=== PATIENT | male | born 1945 | race Caucasian/White ===

== ENCOUNTER 2017-05-04 12:34 | Emergency (ER) | payer BC, OTHER ==
[~2017-05-04] VITALS: Ht 177.8 cm; Wt 71.4 kg
[~2017-05-04 12:34] MED LIST: FLVUNK; PRDUNK
[2017-05-04 12:40] VITALS: TEMP 36.7; Ht 177.8 cm; Wt 71.4 kg
[2017-05-04] MEDS ORDERED: LORAZEPAM 0.5 MG TAB SL STA (13:10)
[2017-05-04] MEDS ORDERED: SODIUM CHLORIDE 0.9% 1000ML 2,000 ML IV STA (13:10)
[2017-05-04 13:32] LABS: BASO % 0.4 %; BASO ABS # 0.05 K/uL (0-0.2); COMPLETE YES; EOS % 0.2 %; HEMATOCRIT 44.7 % (42-52); IG% 0.3 %; LYMPH % 4.8 %; LYMPH ABS # 0.54 K/uL (1.2-3.4); MEAN CELL VOLUME 90.5 fL (80-100); MEAN CORPUSCULAR HEMOGLOBIN 31.4 pg (25-34); MEAN CORPUSCULAR HGB CONC 34.7 g/dl (32-36); MEAN PLATELET VOLUME 11.4 fL (7.4-10.4); MONO % 4.9 %; NEUT % 89.4 %; PLATELET COUNT 143 K/uL (130-400); RED BLOOD COUNT 4.94 M/uL (4.7-6.1); WHITE BLOOD COUNT 11.33 K/uL (4.8-10.8)
[2017-05-04] MEDS ORDERED: METH2.5T PO (13:35)
[2017-05-04] MEDS ORDERED: LEFL10TA PO (13:35)
[2017-05-04] MEDS ORDERED: FOLI1TAB7 PO (13:35)
[2017-05-04] MEDS ORDERED: SERT50TA PO (13:35)
[2017-05-04] MEDS ORDERED: ASPI-435 PO (13:35)
[2017-05-04] MEDS ORDERED: PRD5 PO (13:35)
[2017-05-04] MEDS ORDERED: DSY/150 PO (13:35)
[2017-05-04 13:49] LABS: BUN/CREATININE RATIO 23.1 (10-20); CREATININE 0.85 mg/dl (0.60-1.40); POTASSIUM 3.6 mmol/L (3.5-5.1)
[2017-05-04 14:44] LABS: URINE APPEARANCE CLEAR (CLEAR); URINE BILIRUBIN NEG (NEG); URINE COLOR YELLOW; URINE NITRITE NEG (NEG); URINE SPECIFIC GRAVITY 1.016 (1.000-1.030); UROBILINOGEN NEG (NEG); ZZUR CULT IF INDIC CLEAN CATCH NO
[2017-05-04 14:52] LABS: MANUAL MICROSCOPIC REQUIRED? NO; REVIEW REQ? NO
[2017-05-04] MEDS ORDERED: OPTIRAY 320 IV PRN (15:00)
--- NOTE | 2017-05-04 15:20 | DIAGNOSTIC IMAGING REPORT ---
CT OF THE ABDOMEN AND PELVIS WITH CONTRAST CLINICAL HISTORY: Hematuria. Epigastric abdominal pain. COMPARISON STUDY: None. TECHNIQUE: Following IV administration of 94 mL of Optiray-320, axial images of the abdomen and pelvis were obtained from the lung bases to the proximal femurs. Images were reviewed in the axial, sagittal, and coronal planes. IV contrast was administered without complication. A dose lowering technique was utilized adhering to the principles of ALARA. CT DOSE: 554.55 mGycm FINDINGS: Visualized portions of the lower chest partially visualize a 7 mm right middle lobe nodule. This may be cavitary. This is shown on axial image 1 of 91. The heart is mildly enlarged. The liver, spleen, adrenal glands are unremarkable. There is no biliary or pancreatic ductal dilatation. There is an apparent 1.3 cm nodule arising from the pancreatic tail with central calcification shown on image 108 of 451. There is no hydronephrosis. Several subcentimeter bilateral renal lesions are too small to characterize. Several left renal calculi measure up to 5 mm. There are no ureteral calculi. There is no hydronephrosis. Evaluation for distal ureteral calculi is significantly compromised due to streak artifact from bilateral hip arthroplasties. The bladder is suboptimally assessed. The prostate is surgically absent. This extensive sigmoid diverticulosis without evidence for acute diverticulitis. There is no lymphadenopathy. No suspicious osseous lesions are present. The appendix is not visualized. IMPRESSION: 1. Left-sided nephrolithiasis. No ureteral calculi or hydronephrosis. 2. Evaluation of the distal ureters and bladder is nearly nondiagnostic due to artifact from bilateral hip arthroplasties. 3. Extensive sigmoid diverticulosis without evidence for acute diverticulitis. 4. Partially visualized 7 mm right middle lobe nodule. A follow-up nonemergent chest CT is recommended. Electronically signed by: Mike Byrd M.D. 05/04/2017 3:19 PM Dictated Date/Time: 05/04/2017 3:07 PM
[2017-05-04] MEDS ORDERED: LORA-741 PO (15:37)
[2017-05-04 15:49] VITALS: BP 159/87; PULSE 83; O2SAT 96
--- NOTE | 2017-05-04 16:19 | EMERGENCY ROOM VISIT NOTE ---
History Report prepared by Giovanny: Bessie Fam Under the Supervision of: Dr. Singh Swenson D.O. First contact with patient: 12:44 Chief Complaint: HEMATURIA Stated Complaint: RED URINE History of Present Illness The patient is a 71 year old male who presents to the Emergency Room with complaints of persistent hematuria that started last night. The patient states that his urine is blood tinged. He denies headaches, visual changes, chest pain , shortness of breath, nausea, vomiting, diarrhea, and pain or burning with urination. The patient states that he has been extremely stressed out for the last month. The patient's son adds that the patient's sister 2 weeks ago and that seemed to increase his stress. 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 He denies suicidal or homicidal ideations. The patient's son states that the patient has not eaten much over the last 3-4 days. The patient states that he experiences some abdominal "stress pain." He denies being in any other pain. The patient's took him to see his PCP this morning and they prescribed him Zoloft. He has not taken any of the Zoloft yet because he hasn't eaten. The patient did not tell them about the hematuria. Source of History: patient Onset: last night Position: other (bladder) Quality: other (hematuria) Timing: other (persistent) Associated Symptoms: + abdominal pain ("stress pain"), No headache, No chest pain, No SOB, No nausea, No vomiting, No diarrhea, No urinary symptoms ( pain or burning with urination) Note: increased stress, no visual changes Review of Systems See HPI for pertinent positives & negatives. A total of 10 systems reviewed and were otherwise negative. Past Medical & Surgical Medical Problems: (1) Arthritis Family History No pertinent family history Social History Smoking Status: Former Smoker Marital Status: Housing Status: lives with family Occupation Status: employed Current/Historical Medications Scheduled Aspirin (Aspirin 81), 81 MG PO DAILY Folic Acid (Folvite), 1 MG PO DAILY Leflunomide (Arava), 10 MG PO DAILY Lorazepam (Ativan), 0.5 MG PO TID Methotrexate (Methotrexate), 20 MG PO WK Prednisone (Prednisone), 5 MG PO DAILY Sertraline (Zoloft), 50 MG PO DAILY Trazodone HCl (Trazodone HCl), 150 MG PO HS Allergies Coded Allergies: No Known Allergies (Unverified , NONE, 02/11/09) Physical Exam Vital Signs Date Time Temp Pulse Resp B/P (MAP) Pulse Ox O2 Delivery O2 Flow Rate FiO2 05/04/17 15:49 83 18 159/87 96 Room Air 05/04/17 14:30 77 15 154/86 97 Room Air 05/04/17 12:40 36.7 108 18 143/92 98 Room Air Physical Exam GENERAL: alert, sitting up in chair, well appearing, well nourished, no acute distress, non-toxic EYE EXAM: normal conjunctiva OROPHARYNX: no exudate, no erythema, lips, buccal mucosa, and tongue normal and mucous membranes are moist NECK: supple, no nuchal rigidity, no adenopathy, non-tender LUNGS: Clear to auscultation. Normal chest wall mechanics HEART: no murmurs, S1 normal and S2 normal ABDOMEN: abdomen soft, non-tender, normo-active bowel sounds, no masses, no rebound or guarding. BACK: Back is symmetrical on inspection and there is no deformity, no midline tenderness, no CVA tenderness. SKIN: no rashes and no bruising UPPER EXTREMITIES: upper extremities are grossly normal. LOWER EXTREMITIES: No pitting edema. NEURO EXAM: Normal sensorium, cranial nerves II-XII grossly intact, normal speech, no gross weakness of arms, no gross weakness of legs. PSYCH: Denies suicidal or homicidal ideations. Medical Decision & Procedures ER Provider Diagnostic Interpretation: Radiology results as stated below per my review and the radiologist's interpretation: CT OF THE ABDOMEN AND PELVIS WITH CONTRAST FINDINGS: Visualized portions of the lower chest partially visualize a 7 mm right middle lobe nodule. This may be cavitary. This is shown on axial image 1 of 91. The heart is mildly enlarged. The liver, spleen, adrenal glands are unremarkable. There is no biliary or pancreatic ductal dilatation. There is an apparent 1.3 cm nodule arising from the pancreatic tail with central calcification shown on image 108 of 451. There is no hydronephrosis. Several subcentimeter bilateral renal lesions are too small to characterize. Several left renal calculi measure up to 5 mm. There are no ureteral calculi. There is no hydronephrosis. Evaluation for distal ureteral calculi is significantly compromised due to streak artifact from bilateral hip arthroplasties. The bladder is suboptimally assessed. The prostate is surgically absent. This extensive sigmoid diverticulosis without evidence for acute diverticulitis. There is no lymphadenopathy. No suspicious osseous lesions are present. The appendix is not visualized. IMPRESSION: 1. Left-sided nephrolithiasis. No ureteral calculi or hydronephrosis. 2. Evaluation of the distal ureters and bladder is nearly nondiagnostic due to artifact from bilateral hip arthroplasties. 3. Extensive sigmoid diverticulosis without evidence for acute diverticulitis. 4. Partially visualized 7 mm right middle lobe nodule. A follow-up nonemergent chest CT is recommended. Electronically signed by: Mike Byrd M.D. 05/04/2017 3:19 PM Dictated Date/Time: 05/04/2017 3:07 PM Laboratory Results 05/04/17 13:20 Red Blood Count 4.94, Mean Corpuscular Volume 90.5, Mean Corpuscular Hemoglobin 31.4, Mean Corpuscular Hemoglobin Concent 34.7, Mean Platelet Volume 11.4, Neutrophils (%) (Auto) 89.4, Lymphocytes (%) (Auto) 4.8, Monocytes (%) (Auto) 4.9, Eosinophils (%) (Auto) 0.2, Basophils (%) (Auto) 0.4, Neutrophils # (Auto) 10.13, Lymphocytes # (Auto) 0.54, Monocytes # (Auto) 0.56, Eosinophils # (Auto) 0.02, Basophils # (Auto) 0.05 05/04/17 13:20 Test 05/04/17 13:20 05/04/17 14:15 White Blood Count 11.33 K/uL (4.8-10.8) Red Blood Count 4.94 M/uL (4.7-6.1) Hemoglobin 15.5 g/dL (14.0-18.0) Hematocrit 44.7 % (42-52) Mean Corpuscular Volume 90.5 fL (80-100) Mean Corpuscular Hemoglobin 31.4 pg (25-34) Mean Corpuscular Hemoglobin Concent 34.7 g/dl (32-36) Platelet Count 143 K/uL (130-400) Mean Platelet Volume 11.4 fL (7.4-10.4) Neutrophils (%) (Auto) 89.4 % Lymphocytes (%) (Auto) 4.8 % Monocytes (%) (Auto) 4.9 % Eosinophils (%) (Auto) 0.2 % Basophils (%) (Auto) 0.4 % Neutrophils # (Auto) 10.13 K/uL (1.4-6.5) Lymphocytes # (Auto) 0.54 K/uL (1.2-3.4) Monocytes # (Auto) 0.56 K/uL (0.11-0.59) Eosinophils # (Auto) 0.02 K/uL (0-0.5) Basophils # (Auto) 0.05 K/uL (0-0.2) RDW Standard Deviation 46.4 fL (36.4-46.3) RDW Coefficient of Variation 14.2 % (11.5-14.5) Immature Granulocyte % (Auto) 0.3 % Immature Granulocyte # (Auto) 0.03 K/uL (0.00-0.02) Anion Gap 8.0 mmol/L (3-11) Est Creatinine Clear Calc Drug Dose 78.2 ml/min Estimated GFR () 100.2 Estimated GFR (Non- 86.4 BUN/Creatinine Ratio 23.1 (10-20) Calcium Level 9.0 mg/dl (8.5-10.1) Total Bilirubin 1.3 mg/dl (0.2-1) Direct Bilirubin 0.3 mg/dl (0-0.2) Aspartate Amino Transf (AST/SGOT) 30 U/L (15-37) Alanine Aminotransferase (ALT/SGPT) 43 U/L (12-78) Alkaline Phosphatase 59 U/L (45-117) Total Protein 6.6 gm/dl (6.4-8.2) Albumin 3.4 gm/dl (3.4-5.0) Lipase 228 U/L (73-393) Urine Color YELLOW Urine Appearance CLEAR (CLEAR) Urine pH 8.0 (4.5-7.5) Urine Specific [place] 1.016 (1.000-1.030) Urine Protein NEG (NEG) Urine Glucose (UA) NEG (NEG) Urine Ketones NEG (NEG) Urine Occult Blood 3+ (NEG) Urine Nitrite NEG (NEG) Urine Bilirubin NEG (NEG) Urine Urobilinogen NEG (NEG) Urine Leukocyte Esterase NEG (NEG) Urine WBC (Auto) 1-5 /hpf (0-5) Urine RBC (Auto) >30 /hpf (0-4) Urine Hyaline Casts (Auto) 1-5 /lpf (0-5) Urine Epithelial Cells (Auto) 10-20 /lpf (0-5) Urine Bacteria (Auto) NEG (NEG) Laboratory results per my review. Medications Administered Medications (Trade) Dose Ordered Sig/Bryce Route Start Time Stop Time Status Last Admin Dose Admin Sodium Chloride 2,000 ml @ 999 mls/hr Q2H1M STAT IV 05/04/17 13:10 05/04/17 15:10 DC 05/04/17 13:22 999 MLS/HR Lorazepam (Ativan Tab) 0.5 mg NOW STAT SL 05/04/17 13:10 05/04/17 13:11 DC 05/04/17 13:16 0.5 MG ED Course ED COURSE: Vital signs were reviewed and showed tachycardia and hypertension. The patients medical record was reviewed The above diagnostic studies were performed and reviewed. ED treatments and interventions as stated above. 1247: The patient was evaluated in room C11. A complete history and physical examination was performed. 1310: Ordered Ativan Tab 0.5 mg SL, Sodium Chloride 2000 ml @ 999 mls/hr IV 1431: I reassessed the patient. He is going to CT now. 1540: Upon reevaluation, the patient is feeling better. I discussed my findings with the patient and his son. They understand and agree with the treatment plan. Based on the patients age, coexisting illnesses, exam and lab findings the decision to treat as an outpatient was made. The patient remained stable while under my care. The patient appeared well at the time of discharge. Medical Decision Differential diagnoses includes but is not limited to mood disorder, infection, hypoglycemia, electrolyte abnormalities, cardiac sources, intracerebral event, toxicologic, neurologic. Patient is a 71-year-old male who presents the ER for anxiety associated with body drinking and blood in his urine. He notes the real reason he came in today his cousin blood in his urine. He just noticed this today. He has no urinary complaints. He saw his PCP earlier today for anxiety which is been worsening over the past month since his daughter . He denies any suicidal or homicidal ideations. He just started Zoloft. He has no other complaints. CBC along with BMP, LFTs were unremarkable. Bilirubin was slightly elevated. CT then pelvis was negative. UA shows mild hematuria but no UTI. Sent for culture. He has no symptoms at this time. Unlikely stone. Patient was given a small dose of Ativan and notes his anxiety improved significant. He was discharged with a prescription for this instructed to follow-up with his PCP for his anxiety. I also informed him and his son in regards to the pulmonary nodule that needs to be followed up by his primary care doctor. Discussed with Pt concerning signs and symptoms to watch out for. Pt was instructed to follow up with their PCP and discussed with the patient their option to return to the ED at anytime for persistent or worsening symptoms. The appropriate anticipatory guidance and out-patient management, including indications for return to the emergency department, were explained at length to the patient and understood. Medication Reconcilliation Current Medication List: was personally reviewed by me Blood Pressure Screening Patient's blood pressure: Elevated blood pressure Blood pressure disposition: Elevated BP felt to be situational Impression Primary Impression: Anxiety Additional Impressions: Hematuria Depression Pulmonary nodule Scribe Attestation The scribe's documentation has been prepared under my direction and personally reviewed by me in its entirety. I confirm that the note above accurately reflects all work, treatment, procedures, and medical decision making performed by me. Departure Information Dispostion Home / Self-Care Prescriptions Lorazepam (ATIVAN) 0.5 Mg Tab 0.5 MG PO TID, #10 TAB Prov: Singh Swenson, DO 05/04/17 Referrals Jennifer Chavez,C.R.N.P. (PCP) Forms HOME CARE DOCUMENTATION FORM, IMPORTANT VISIT INFORMATION, WORK / SCHOOL INSTRUCTIONS Patient Instructions Anxiety Body Response, [facility] Additional Instructions Please follow up with your primary care doctor or if you are a student, [facility] with in the next 24 hours. Any worsening of your symptoms, please return to the ED immediately. This includes any fevers greater than 100.4, worsening pain, chest pain, shortness breath, persistent nausea, vomiting, unable to eat or drink, or any other concerning signs or symptoms from your standpoint. You were given medications during this visit that will inhibit your ability to drive, operate machinery and work. Please do NOT drive, operate machinery or work for the next 12hrs. You were also given a prescription for a benzodiazepine. While taking this medication you should also not drive, operate machinery and or work. You were found to have a blood pressure greater than 120 systolic over 90 diastolic. Due to the new Medicare guidelines, we are now recommending that you follow up with your primary care doctor in regards to this elevated blood pressure. You were found to have a pulmonary nodule which needs to be followed up on by your primary care doctor which needs to be followed up on within the next 2 weeks. Please follow up with urology in the next week. Problem Qualifiers Additional Impressions: Hematuria Hematuria type: unspecified type Qualified Codes: R31.9 - Hematuria, unspecified Depression Depression Type: unspecified Qualified Codes: F32.9 - Major depressive disorder, single episode, unspecified
== END 2017-05-04 15:53 | disposition home or self-care (01) ==
LOC: C.EDB 12:34 → C.EDC 15:53
DX: F41.9 Anxiety disorder, unspecified (principal); R31.9 Hematuria, unspecified; F32.9 Major depressive disorder, single episode, unspecified; R91.1 Solitary pulmonary nodule; M19.90 Unspecified osteoarthritis, unspecified site; Z87.891 Personal history of nicotine dependence; Z79.82 Long term (current) use of aspirin

== ENCOUNTER 2017-05-10 05:29 | Emergency (ER) | payer BC, OTHER ==
[~2017-05-10] VITALS: Ht 177.8 cm; Wt 70.1 kg
[~2017-05-10 05:29] MED LIST changes: +ASPI-435 PO; +DSY/150 PO; -FLVUNK; +FOLI1TAB7 PO; +LEFL10TA PO; +LORA-741 PO; +METH2.5T PO; +PRD5 PO; -PRDUNK; +SERT50TA PO
[2017-05-10 05:34] VITALS: TEMP 36.5
[2017-05-10] MEDS ORDERED: SODIUM CHLORIDE 0.9% 1000ML 1,000 ML IV SCH (05:37)
[2017-05-10 05:41] VITALS: O2SAT 96; Ht 177.8 cm; Wt 70.1 kg
[2017-05-10 06:03] LABS: BASO % 0.5 %; BASO ABS # 0.04 K/uL (0-0.2); COMPLETE YES; EOS % 3.2 %; HEMATOCRIT 43.9 % (42-52); IG% 0.3 %; LYMPH % 14.7 %; LYMPH ABS # 1.07 K/uL (1.2-3.4); MEAN CELL VOLUME 90.1 fL (80-100); MEAN CORPUSCULAR HEMOGLOBIN 31.8 pg (25-34); MEAN CORPUSCULAR HGB CONC 35.3 g/dl (32-36); MEAN PLATELET VOLUME 11.7 fL (7.4-10.4); MONO % 8.1 %; NEUT % 73.2 %; PLATELET COUNT 162 K/uL (130-400); RED BLOOD COUNT 4.87 M/uL (4.7-6.1); WHITE BLOOD COUNT 7.28 K/uL (4.8-10.8)
[2017-05-10 06:16] LABS: PROTHROMBIN TIME (PATIENT) 10.6 SECONDS (9.0-12.0)
[2017-05-10 06:22] LABS: BLOOD UREA NITROGEN 16 mg/dl (7-18); BUN/CREATININE RATIO 18.9 (10-20); CALCIUM 9.1 mg/dl (8.5-10.1); CARBON DIOXIDE 26 mmol/L (21-32); CHLORIDE 109 mmol/L (98-107); CREATININE 0.82 mg/dl (0.60-1.40); GLUCOSE 119 mg/dl (70-99); POTASSIUM 3.3 mmol/L (3.5-5.1); SODIUM 143 mmol/L (136-145)
[2017-05-10 06:27] LABS: CKMB/CK RATIO 3.9 (0-3.0)
--- NOTE | 2017-05-10 06:47 | EMERGENCY ROOM VISIT NOTE ---
History Report prepared by Giovanny: Jacki Sandoval Under the Supervision of: Dr. Jacqueline Mendoza D.O. First contact with patient: 05:34 Chief Complaint: STROKE SYMPTOMS Stated Complaint: STROKE SYMPTOMS Nursing Triage Summary: Last know well at 2300. Pt fell out of bed at 0415. Pt has left facial droop and left arm weakness. History of Present Illness The patient is a 71 year old male who presents to the Emergency Room with complaints of an episode of stroke symptoms starting an hour and a half ago. The patient's states that he went to bed 6 hours ago and that this is his last known well time. She states that he got up to use the restroom and fell getting out of the bed. She states that he seems to have left sided weakness, a left sided facial droop, and slurred speech. The patient denies abdominal pain and a headache. The notes no family history of a stroke. Source of History: patient Onset: hour and a half ago Position: other (global) Quality: other (global) Timing: other (episode) Associated Symptoms: No headache, No abdominal pain Review of Systems See HPI for pertinent positives & negatives. A total of 10 systems reviewed and were otherwise negative. Past Medical & Surgical Medical Problems: (1) Arthritis Family History No pertinent family history Social History Smoking Status: Never Smoker Drug Use: none Marital Status: Housing Status: lives with family Occupation Status: employed Current/Historical Medications Scheduled Aspirin (Aspirin 81), 81 MG PO DAILY Folic Acid (Folvite), 1 MG PO DAILY Leflunomide (Arava), 10 MG PO DAILY Lorazepam (Ativan), 0.5 MG PO TID Methotrexate (Methotrexate), 20 MG PO WK Prednisone (Prednisone), 5 MG PO DAILY Sertraline (Zoloft), 50 MG PO DAILY Trazodone HCl (Trazodone HCl), 150 MG PO HS Allergies Coded Allergies: No Known Allergies (Unverified , NONE, 05/10/17) Physical Exam Vital Signs Date Time Temp Pulse Resp B/P (MAP) Pulse Ox O2 Delivery O2 Flow Rate FiO2 05/10/17 07:17 73 18 157/98 98 05/10/17 07:15 73 18 157/98 05/10/17 06:24 68 140/86 96 Room Air 05/10/17 05:41 96 Room Air 05/10/17 05:38 79 05/10/17 05:34 36.5 87 18 149/94 98 Room Air Physical Exam HEENT: Head - normocephalic. Abrasion to left forehead. Pupils are equal, round , and reactive to light. Extraocular eye muscles are intact and sclera are anicteric. \ Nose - moist nasal mucosa without discharge. Mouth - moist buccal mucosa. Oropharynx is nonerythematous and there is no tonsillar exudate or edema noted. Neck: Supple; no JVD, nuchal rigidity, cervical lymphadenopathy, or auscultated bruits. Heart: Regular rate and rhythm. There is a normal S1 and S2 with no murmurs, clicks, or gallops appreciated. Lungs: Clear to auscultation bilaterally with no wheezes, rales, or rhonchi. Abdomen: Soft, completely nontender, nondistended, with good bowel sounds. There are no palpable pulsatile masses or hepatosplenomegaly. There is no guarding, rigidity, or rebound noted. Extremities: No evidence of cyanosis, clubbing, or edema. There are easily palpable peripheral pulses. Neuro:The patient is awake and alert, oriented to day, time, and place. Left sided facial droop. Left arm is weak, can only abduct against gravity for a very short period of time, no ability to flex or extend at the elbow. Very minimal sanitation engineer at the left hand. Able to elevate left leg and hold against gravity for more then 5 seconds. Normal pedal push and pull. Medical Decision & Procedures ER Provider Diagnostic Interpretation: CT HEAD: No prior. Hemorrhage in right basal ganglia with surrounding edema. Given its location, consider hypertensive hemorrhage. Chronic- appearing ischemic change. Mild sinus opacity. Suspect trace mastoid opacity. Radiologist: Jovany Foy M.D. Study ready at 05:57 and initial results transmitted at 06:41. Laboratory Results 05/10/17 04:55 Red Blood Count 4.87, Mean Corpuscular Volume 90.1, Mean Corpuscular Hemoglobin 31.8, Mean Corpuscular Hemoglobin Concent 35.3, Mean Platelet Volume 11.7, Neutrophils (%) (Auto) 73.2, Lymphocytes (%) (Auto) 14.7, Monocytes (%) (Auto) 8.1, Eosinophils (%) (Auto) 3.2, Basophils (%) (Auto) 0.5, Neutrophils # (Auto) 5.33, Lymphocytes # (Auto) 1.07, Monocytes # (Auto) 0.59, Eosinophils # (Auto) 0.23, Basophils # (Auto) 0.04 05/10/17 04:55 Test 05/10/17 04:55 05/10/17 05:41 05/10/17 06:10 White Blood Count 7.28 K/uL (4.8-10.8) Red Blood Count 4.87 M/uL (4.7-6.1) Hemoglobin 15.5 g/dL (14.0-18.0) Hematocrit 43.9 % (42-52) Mean Corpuscular Volume 90.1 fL (80-100) Mean Corpuscular Hemoglobin 31.8 pg (25-34) Mean Corpuscular Hemoglobin Concent 35.3 g/dl (32-36) Platelet Count 162 K/uL (130-400) Mean Platelet Volume 11.7 fL (7.4-10.4) Neutrophils (%) (Auto) 73.2 % Lymphocytes (%) (Auto) 14.7 % Monocytes (%) (Auto) 8.1 % Eosinophils (%) (Auto) 3.2 % Basophils (%) (Auto) 0.5 % Neutrophils # (Auto) 5.33 K/uL (1.4-6.5) Lymphocytes # (Auto) 1.07 K/uL (1.2-3.4) Monocytes # (Auto) 0.59 K/uL (0.11-0.59) Eosinophils # (Auto) 0.23 K/uL (0-0.5) Basophils # (Auto) 0.04 K/uL (0-0.2) RDW Standard Deviation 47.2 fL (36.4-46.3) RDW Coefficient of Variation 14.3 % (11.5-14.5) Immature Granulocyte % (Auto) 0.3 % Immature Granulocyte # (Auto) 0.02 K/uL (0.00-0.02) Prothrombin Time 10.6 SECONDS (9.0-12.0) Prothromb Time International Ratio 1.0 (0.9-1.1) Activated Partial Thromboplast Time 24.7 SECONDS (21.0-31.0) Partial Thromboplastin Ratio 1.0 Anion Gap 8.0 mmol/L (3-11) Est Creatinine Clear Calc Drug Dose 79.6 ml/min Estimated GFR () 101.7 Estimated GFR (Non- 87.7 BUN/Creatinine Ratio 18.9 (10-20) Calcium Level 9.1 mg/dl (8.5-10.1) Total Creatine Kinase 64 U/L (39-308) Creatine Kinase MB 2.5 ng/ml (0.5-3.6) Creatine Kinase MB Ratio 3.9 (0-3.0) Troponin I < 0.015 ng/ml (0-0.045) Bedside Glucose 124 mg/dl (70-99) Bedside Prothrombin Time INR 1.1 (0.9-1.1) Laboratory results per my review. Medications Administered Medications (Trade) Dose Ordered Sig/Bryce Route Start Time Stop Time Status Last Admin Dose Admin Sodium Chloride 1,000 ml @ 50 mls/hr Q20H IV 05/10/17 05:37 05/10/17 08:21 DC 05/10/17 06:00 50 MLS/HR Procedure 0537: Ordered NSS 1000 ml @ 50 mls/hr IV. ECG Indication: weakness Rate (beats per minute): 79 Rhythm: normal sinus Findings: ST depression (Lateral), no ectopy ED Course 0536: Past medical records reviewed. The patient was evaluated in room B10. A complete history and physical exam was performed. The patient went for a stat CT scan of the brain and a stroke protocol was performed. 0537: Ordered NSS 1000 ml @ 50 mls/hr IV. 0603: I discussed with his family the test result findings. They would like him to be transferred to [facility]. His INR is 1.1. The patient's blood pressure remained stable at this time. 0648: Discussed the patient's case with Dr. Olivier. The patient will be transferred by air and evaluated for further management. 0652: I spoke with the patient and his family to inform them that the transport will be done by air. 0710: I discussed the case with the flight crew at the bedside. Medical Decision This is a 71-year-old male patient who awoke from sleep with left-sided weakness and fell to the ground trying to go to the bathroom. Differential diagnoses include intracranial hemorrhage, TIA, CVA. LABS: White count 7.2 Stable H&H Normal troponin Glucose 119 Normal renal function INR 1.[address] scan, the patient had evidence of an acute intracranial hemorrhage in the right basal ganglia. The patient's family requested him to go to [facility] for nerve surgical evaluation. He was transferred there by air. He remained hemodynamically stable prior to transport. Medication Reconcilliation Current Medication List: was personally reviewed by me Blood Pressure Screening Patient's blood pressure: Normal blood pressure Blood pressure disposition: Did not require urgent referral Consults Time Called: [phone] Consulting Physician: Dr. Olivier Returned Call: [phone] Discussed the patient's case with Dr. Olivier. The patient will be transferred by air and evaluated for further management. Impression Primary Impression: Hemorrhagic stroke Critical Care I have personally spent greater than 60 minutes of critical care time in the direct management of this patient. This includes bedside care, interpretation of diagnostic studies, and testing, discussion with consultants, patient, and family members, and other required patient management activities. This 60 minutes is in excess of all separately billable procedures. Scribe Attestation The scribe's documentation has been prepared under my direction and personally reviewed by me in its entirety. I confirm that the note above accurately reflects all work, treatment, procedures, and medical decision making performed by me. Departure Information Dispostion Transfer Acute Care Facility Referrals Randy Cisneros D.O. (PCP) Patient Instructions [facility]
--- NOTE | 2017-05-10 07:11 | DIAGNOSTIC IMAGING REPORT ---
CT SCAN OF THE BRAIN WITHOUT IV CONTRAST CLINICAL HISTORY: Strokelike symptoms. Fall. Facial droop. COMPARISON STUDY: No priors. TECHNIQUE: Unenhanced axial CT scan of the brain is performed from the vertex to the skull base. CT DOSE: 614.27 mGy.cm FINDINGS: Brain parenchyma: There are age-related involutional changes noting moderate subcortical and periventricular microangiopathic change. There is an acute hemorrhage centered in the right basal ganglia. This measures approximately 4 x 2.5 cm and there is surrounding edema. There is no midline shift or evidence of acute territorial ischemia by CT criteria. No extra-axial fluid collection is seen. Ventricles, sulci, cisterns: Prominent secondary to involutional change. Intracranial vasculature: There is atherosclerotic calcification of the cavernous carotid arteries. Calvarium: The skeletal structures are osteopenic. No depressed calvarial fracture is seen. Sinuses and mastoids: Trace mucosal thickening is seen in the right maxillary antrum. The remaining paranasal sinuses are clear. There is a trace right mastoid effusion. The left mastoid air cells are well pneumatized. Orbits: The bony orbits are grossly intact. IMPRESSION: 1. There is an approximately 4 x 2.5 cm acute hemorrhage centered in the right basal ganglia with surrounding edema. 2. No additional foci of hemorrhage are identified. 3. There is no midline shift or evidence of acute territorial ischemia by CT criteria. Electronically signed by: Jake Moorcho M.D. 05/10/2017 7:10 AM Dictated Date/Time: 05/10/2017 7:07 AM
[2017-05-10 07:17] VITALS: BP 157/98; PULSE 73; O2SAT 98
== END 2017-05-10 07:19 | disposition short-term general hospital (02) ==
LOC: C.EDB 05:29
DX: I62.9 Nontraumatic intracranial hemorrhage, unspecified (principal); M19.90 Unspecified osteoarthritis, unspecified site; Z79.82 Long term (current) use of aspirin; Z79.899 Other long term (current) drug therapy

== ENCOUNTER 2017-06-07 19:03 | Emergency (ER) | payer BC, OTHER ==
[~2017-06-07] VITALS: Ht 182.9 cm; Wt 66.7 kg
[~2017-06-07 19:03] MED LIST changes: -LORA-741 PO
[2017-06-07 19:09] VITALS: TEMP 36.3; Ht 182.9 cm; Wt 66.7 kg
[2017-06-07 20:49] VITALS: O2SAT 98
[2017-06-07] MEDS ORDERED: LORAZEPAM 2 MG/ML 1 ML VIAL IV STA (21:12)
--- NOTE | 2017-06-07 21:49 | EMERGENCY ROOM VISIT NOTE ---
History Report prepared by Giovanny: Gibran Lance Under the Supervision of: Dr. Taco Rodgers D.O. First contact with patient: 20:57 Chief Complaint: FEEDING TUBE PROBLEM Stated Complaint: ANXIETY, FEED TUBE PROBLEMS History of Present Illness The patient is a 71 year old male who presents to the Emergency Room with complaints of a problem with his feeding tube that began this afternoon. He had this tube placed in his abdomen on May 17, 2017. The patient was unable to receive any food or medications since 2 pm today. They state that they cannot get any liquids through the tube. He missed his blood pressure and anxiety medications. Source of History: patient Onset: this afternoon Position: other (Feeding tube) Symptom Intensity: Clogged Quality: other (Unable to input liquids) Timing: constant Note: He was unable to receive his hypertension and anxiety medications, so he is anxiety and hypertensive. They deny any other abnormal symptoms. Review of Systems See HPI for pertinent positives & negatives. A total of 10 systems reviewed and were otherwise negative. Past Medical & Surgical Medical Problems: (1) Arthritis Family History No pertinent family history Social History Smoking Status: Former Smoker Drug Use: none Marital Status: Housing Status: lives with family Occupation Status: employed Current/Historical Medications Scheduled Aspirin (Aspirin 81), 81 MG PO DAILY Folic Acid (Folvite), 1 MG PO DAILY Leflunomide (Arava), 10 MG PO DAILY Methotrexate (Methotrexate), 20 MG PO WK Prednisone (Prednisone), 5 MG PO DAILY Sertraline (Zoloft), 50 MG PO DAILY Trazodone HCl (Trazodone HCl), 150 MG PO HS Allergies Coded Allergies: No Known Allergies (Unverified , NONE, 05/10/17) Physical Exam Vital Signs Date Time Temp Pulse Resp B/P (MAP) Pulse Ox O2 Delivery O2 Flow Rate FiO2 06/07/17 22:00 88 14 149/96 94 06/07/17 21:23 109 06/07/17 20:53 122 20 180/121 96 Room Air 06/07/17 20:49 98 Room Air 06/07/17 19:09 36.3 119 22 181/106 94 Room Air Physical Exam CONSTITUTIONAL/VITAL SIGNS: Reviewed / noted above. GENERAL: Non-toxic in appearance. INTEGUMENTARY: Warm, dry, and [place]. HEAD: Normocephalic. EYES: without scleral icterus or trauma. ENT/OROPHARYNX: clear and moist. LYMPHADENOPATHY/NECK: Is supple without lymphadenopathy or meningismus. RESPIRATORY: Lungs clear and equal. CARDIOVASCULAR: Regular rate and rhythm. GI/ABDOMEN: Soft and nontender. No organomegaly or pulsatile mass. No rebound or guarding. Normal bowel sounds. Feeding tube in place. EXTREMITIES: Warm and well perfused. BACK: No CVA tenderness. NEUROLOGICAL: Intact without focal deficits. PSYCHIATRIC: normal affect. MUSCULOSKELETAL: Normally developed with good muscle tone. Medical Decision & Procedures Medications Administered Medications (Trade) Dose Ordered Sig/Bryce Route Start Time Stop Time Status Last Admin Dose Admin Lorazepam (Ativan Inj) 1 mg NOW STAT IV 06/07/17 21:12 06/07/17 21:13 DC 06/07/17 21:18 1 MG ED Course 2056: Previous medical records were reviewed. The patient was evaluated in room B8. A complete history and physical examination was performed. 2111: Ordered Ativan Inj 1 mg IV 2149: On reevaluation, the patient is resting. I discussed the results and findings with the patient. He verbalized agreement of the treatment plan. He was discharged home. Medical Decision Differential diagnoses include feeding tube dysfunction and anxiety related to lack of anxiety medication. This is a 71-year-old male who presents to the ED with a chief complaint of feeding tube dysfunction. The patient's was attempting to give the patient medication this evening and was unable to administer the medication through the feeding tube because it was clogged. The patient's attempted Sheri Savanna without success and came in for evaluation. The patient is feeling anxious because he was unable to get his medication. An IV was established, the patient was given Ativan IV. I was able to flush the feeding tube. It seems to be functioning fine. The patient was felt to be stable for discharge. Medication Reconcilliation Current Medication List: was personally reviewed by me Blood Pressure Screening Patient's blood pressure: Elevated blood pressure Blood pressure disposition: Did not require urgent referral Impression Primary Impression: Feeding tube blocked Additional Impression: Anxiety Scribe Attestation The scribe's documentation has been prepared under my direction and personally reviewed by me in its entirety. I confirm that the note above accurately reflects all work, treatment, procedures, and medical decision making performed by me. Departure Information Dispostion Home / Self-Care Referrals Randy Cisneros D.O. (PCP) Forms HOME CARE DOCUMENTATION FORM, IMPORTANT VISIT INFORMATION, WORK / SCHOOL INSTRUCTIONS Patient Instructions [facility] Additional Instructions Follow-up with your doctor for further care and evaluation in 1-2 days as needed. Return to the emergency department for worsening or new symptoms or any concerns. You have been examined and treated today on an emergency basis only. This is not a substitute for, or an effort to provide, complete comprehensive medical care. It is impossible to recognize and treat all injuries or illnesses in a single emergency department visit. It is therefore important that you follow up closely with your doctor. Call as soon as possible for an appointment. Problem Qualifiers
[2017-06-07 22:00] VITALS: BP 149/96; PULSE 88; O2SAT 94
== END 2017-06-07 22:00 | disposition home or self-care (01) ==
LOC: C.EDB 19:04
DX: Z43.1 Encounter for attention to gastrostomy (principal); F41.9 Anxiety disorder, unspecified; M19.90 Unspecified osteoarthritis, unspecified site; Z87.891 Personal history of nicotine dependence; Z79.82 Long term (current) use of aspirin

== ENCOUNTER 2017-09-08 19:39 | Observation (INO) | payer BC, OTHER ==
[~2017-09-08] VITALS: Ht 177.8 cm; Wt 70.9 kg
[2017-09-08] MEDS ORDERED: OXYCODONE HCL IR 5 MG TAB (IMMEDIATE RELEASE) PO STA (20:04)
[2017-09-08] MEDS ORDERED: ONDANSETRON 4MG OD TAB PO ONE (20:15)
--- NOTE | 2017-09-08 20:40 | DIAGNOSTIC IMAGING REPORT ---
LEFT SHOULDER 3 VIEWS CLINICAL HISTORY: Fall with shoulder injury. FINDINGS: 3 views of the left shoulder are obtained. No prior studies are available for comparison at the time of dictation. The skeletal structures are osteopenic. No fracture is seen. The glenohumeral articulation is preserved. There is separation at the acromioclavicular joint, with superior subluxation of the clavicular head. Productive degenerative changes seen at the AC joint. Arthritic change is also seen in the greater tuberosity of the humeral head. Overlying soft tissue edema is noted. There are healed left-sided rib fractures. The imaged left lung parenchyma appears clear. IMPRESSION: 1. No left shoulder fracture is seen. 2. Findings are consistent with shoulder separation at the AC joint. Electronically signed by: Jake Morocho M.D. 09/08/2017 8:39 PM Dictated Date/Time: 09/08/2017 8:37 PM
--- NOTE | 2017-09-08 21:11 | DIAGNOSTIC IMAGING REPORT ---
CT SCAN OF THE BRAIN WITHOUT IV CONTRAST CLINICAL HISTORY: Fall. Head injury. COMPARISON STUDY: CT of the brain dated 05/10/2017. TECHNIQUE: Unenhanced axial CT scan of the brain is performed from the vertex to the skull base. FINDINGS: Brain parenchyma: There are age-related involutional changes noting moderate subcortical and periventricular microangiopathic change. There is linear hyperdensity present within the right subinsular cortex on axial image #16 at the site of a previously characterized hematoma. This likely represents trace resolving hemorrhage. No additional foci of hemorrhage is seen. There is no mass effect or evidence of acute territorial ischemia by CT criteria. Jean-white matter is preserved. No extra-axial fluid collection is seen. Ventricles, sulci, cisterns: Prominent secondary to involutional change. Intracranial vasculature: There is atherosclerotic calcification of the cavernous carotid and vertebral arteries. Calvarium: The skeletal structures are osteopenic. No depressed calvarial fracture is seen. Sinuses and mastoids: There is moderate mucosal thickening with calcified debris present in the right sphenoid sinus. The remaining visualized paranasal sinuses are clear. The mastoid air cells are well pneumatized. Orbits: The bony orbits are grossly intact. IMPRESSION: 1. There is linear hyperdensity present within the right subinsular cortex. There was a large hematoma seen at this site on 05/10/2017, and this likely represents trace resolving hematoma. Acute hemorrhage is considered much less likely but is impossible to exclude. Consider short-term follow-up for reassessment (12 to 24 hours). 2. No additional foci of hemorrhage is seen. There is no mass effect or evidence of acute territorial ischemia by CT criteria. Electronically signed by: Jake Morocho M.D. 09/08/2017 9:10 PM Dictated Date/Time: 09/08/2017 9:05 PM
--- NOTE | 2017-09-08 21:15 | DIAGNOSTIC IMAGING REPORT ---
CT SCAN OF THE CERVICAL SPINE CLINICAL HISTORY: Trauma. Fall. COMPARISON STUDY: No priors. TECHNIQUE: CT scan of the cervical spine is performed from the skull base to the upper thoracic spine. Images are reviewed in the axial, sagittal, and coronal planes. IV contrast was not administered for this examination. A dose lowering technique was utilized adhering to the principles of ALARA. CT DOSE: 1193.67 mGy.cm FINDINGS: Skeletal structures: The skeletal structures are osteopenic. There is no evidence of fracture or subluxation involving the cervical spine. Vertebral body height is maintained. There is minimal anterolisthesis at C3-C4 and C7-T1. Minimal retrolisthesis is noted at C5-C6. Anterior osteophytes are seen throughout. Hyperlordosis is noted. The odontoid process and lateral masses are intact. The atlantoaxial articulation is preserved noting advanced productive degenerative change. The spinous processes appear intact. There is moderate multilevel cervical spondylosis. Uncovertebral and facet arthropathy contribute to multilevel neural foraminal stenosis. Intervertebral discs: Moderate disc space narrowing is seen at all levels between C3-C4 and C7-T1. Central canal: Posterior disc osteophyte complexes at C3-C4, C4-C5, C5-C6, and C6-C7 may contribute to mild acquired compromise of the central canal. Soft tissues: The prevertebral and paraspinous soft tissues are within normal limits. Calvarium: The visualized calvarium at the skull base appears intact. Brain parenchyma: Partially visualized brain parenchyma the skull base is within normal limits. Sinuses and mastoids: The visualized paranasal sinuses are clear. The mastoid air cells are well pneumatized. Lung apices: Apical scarring is noted. Mild paraseptal emphysematous changes observed. IMPRESSION: 1. There is no evidence of fracture or subluxation involving the cervical spine. 2. Osteopenia and spondylotic change as above. Electronically signed by: Jake Morocho M.D. 09/08/2017 9:14 PM Dictated Date/Time: 09/08/2017 9:10 PM
[2017-09-08] MEDS ORDERED: VENL150C PO (21:53)
[2017-09-08] MEDS ORDERED: MIRT15TA2 PO (21:57)
[2017-09-08] MEDS ORDERED: LISI-787 PO (21:59)
[2017-09-08] MEDS ORDERED: HYDR-5688 PO (21:59)
[2017-09-08 22:07] LABS: BASO % 0.3 %; BASO ABS # 0.03 K/uL (0-0.2); COMPLETE YES; EOS % 0.7 %; HEMATOCRIT 39.1 % (42-52); IG% 0.4 %; LYMPH % 10.2 %; LYMPH ABS # 0.98 K/uL (1.2-3.4); MEAN CELL VOLUME 91.8 fL (80-100); MEAN CORPUSCULAR HEMOGLOBIN 30.5 pg (25-34); MEAN CORPUSCULAR HGB CONC 33.2 g/dl (32-36); MEAN PLATELET VOLUME 10.5 fL (7.4-10.4); NEUT % 81.4 %; PLATELET COUNT 135 K/uL (130-400); RED BLOOD COUNT 4.26 M/uL (4.7-6.1); WHITE BLOOD COUNT 9.62 K/uL (4.8-10.8)
[2017-09-08 22:18] LABS: PROTHROMBIN TIME (PATIENT) 10.6 SECONDS (9.0-12.0)
[2017-09-08 22:24] LABS: BLOOD UREA NITROGEN 18 mg/dl (7-18); BUN/CREATININE RATIO 28.6 (10-20); CALCIUM 8.9 mg/dl (8.5-10.1); CARBON DIOXIDE 28 mmol/L (21-32); CHLORIDE 105 mmol/L (98-107); CREATININE 0.64 mg/dl (0.60-1.40); GLUCOSE 81 mg/dl (70-99); POTASSIUM 3.7 mmol/L (3.5-5.1); SODIUM 139 mmol/L (136-145)
[2017-09-08] MEDS ORDERED: NITROGLYCERIN 0.4 MG SL PER TAB CHARGE SL PRN (23:00)
[2017-09-08] MEDS ORDERED: MoRPHine SULFATE 4 MG/ML 1 ML CARP\\VIAL IV PRN (23:00)
[2017-09-08] MEDS ORDERED: HYDROCODONE/ACETAMOPHEN 5/325MG TAB PO PRN (23:00)
[2017-09-08] MEDS ORDERED: ONDANSETRON INJ 2 MG/ML 2 ML VIAL IV PRN (23:00)
[2017-09-08] MEDS ORDERED: ACETAMINOPHEN 325 MG TAB PO PRN (23:00)
[2017-09-08 23:03] LABS: ALKALINE PHOSPHATASE 75 U/L (45-117); ALT/SGPT 26 U/L (12-78); AST/SGOT 34 U/L (15-37)
[2017-09-08] MEDS ORDERED: HYDROCODONE/ACETAMOPHEN 5/325MG TAB PO STA (23:05)
[2017-09-08 23:15] LABS: MAGNESIUM 2.2 mg/dl (1.8-2.4)
--- NOTE | 2017-09-08 23:15 | EMERGENCY ROOM VISIT NOTE ---
History First contact with patient: 20:02 Chief Complaint: SHOULDER PAIN Stated Complaint: BROKEN SHOULDER History of Present Illness The patient is a 71 year old male who presents to the Emergency Room with complaints of left shoulder pain after a fall. The patient states that he tripped and fell out of the bed of a truck approximately 4 hours ago. 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 He states that he landed onto the left shoulder and may have struck the head. He rates his discomfort an 8/10 in the shoulder. He denies headache, nausea/vomiting, dizziness, confusion, blurred vision or slurred speech. He does not take any anticoagulants. He denies any other injuries. He denies neck pain. The patient does report that he has a rash on his abdomen and back from a fall 2 weeks ago. He did not take any medication for pain prior to arrival here. Review of Systems A complete 10 point review of systems was reviewed with the patient with pertinent positives and negatives as per history of present illness. All else were negative. Past Medical/Surgical History Medical Problems: (1) Abnormal CT of brain (2) Arthritis (3) Head trauma Family History No pertinent family history Social History Smoking Status: Never Smoker Drug Use: none Marital Status: Housing Status: lives with family Occupation Status: employed Current/Historical Medications Scheduled Folic Acid (Folvite), 1 MG PO DAILY Leflunomide (Arava), 10 MG PO DAILY Lisinopril/Hctz (Zestoretic 20MG/12.5MG), 1 TAB PO DAILY Methotrexate (Methotrexate), 20 MG PO WK Mirtazapine Soltab (Remeron Soltab), 7.5 MG PO HS Prednisone (Prednisone), 5 MG PO DAILY Trazodone HCl (Trazodone HCl), 150 MG PO HS Venlafaxine Hcl (Effexor Xr), 1 CAP PO DAILY Scheduled PRN Hydrocodone/Acetaminophen 5MG/325MG (Wren 5MG/325MG), 1 TABLET PO Q6 PRN for Pain Physical Exam Vital Signs Date Time Temp Pulse Resp B/P (MAP) Pulse Ox O2 Delivery O2 Flow Rate FiO2 09/08/17 22:05 78 18 148/93 100 Room Air 09/08/17 19:53 36.6 79 18 100 Room Air Physical Exam VITALS: Vitals are noted on the nurse's note and reviewed by myself. Vital signs stable. GENERAL: This is a 71-year-old male, in no acute distress, nondiaphoretic, well- developed well-nourished. SKIN: There is an erythematous, crusted dermatomal rash over the left upper abdomen/flank which does not cross the midline. Otherwise no erythema, ecchymosis or edema. HEAD: Normocephalic atraumatic. EARS: External auditory canals clear, tympanic membranes pearly rios without erythema or effusion bilaterally. No hemotympanum. EYES: Pupils equal round and reactive to light and accommodation. Extraocular movements intact. NECK: Supple without nuchal rigidity. Cervical spine is nontender. HEART: Regular rate and rhythm without murmurs gallops or rubs. LUNGS: Clear to auscultation bilaterally without wheezes, rales or rhonchi. MUSCULOSKELETAL: There is obvious elevation of the left distal clavicle in relation to the acromion process. There is significant tenderness with any palpation of the left distal clavicle/shoulder. Decreased range of motion of the left shoulder. No tenderness at the distal humerus, elbow or forearm. Radial pulse 2+. NEURO: Patient was alert and oriented to person place and time. Normal sensation to light and sharp touch. No focal neurological deficits. Medical Decision & Procedures ER Provider Diagnostic Interpretation: CT SCAN OF THE BRAIN WITHOUT IV CONTRAST IMPRESSION: 1. There is linear hyperdensity present within the right subinsular cortex. There was a large hematoma seen at this site on 05/10/2017, and this likely represents trace resolving hematoma. Acute hemorrhage is considered much less likely but is impossible to exclude. Consider short-term follow-up for reassessment (12 to 24 hours). 2. No additional foci of hemorrhage is seen. There is no mass effect or evidence of acute territorial ischemia by CT criteria. CT SCAN OF THE CERVICAL SPINE IMPRESSION: 1. There is no evidence of fracture or subluxation involving the cervical spine. 2. Osteopenia and spondylotic change as above. LEFT SHOULDER 3 VIEWS IMPRESSION: 1. No left shoulder fracture is seen. 2. Findings are consistent with shoulder separation at the AC joint. Laboratory Results 09/08/17 21:45 Red Blood Count 4.26, Mean Corpuscular Volume 91.8, Mean Corpuscular Hemoglobin 30.5, Mean Corpuscular Hemoglobin Concent 33.2, Mean Platelet Volume 10.5, Neutrophils (%) (Auto) 81.4, Lymphocytes (%) (Auto) 10.2, Monocytes (%) (Auto) 7.0, Eosinophils (%) (Auto) 0.7, Basophils (%) (Auto) 0.3, Neutrophils # (Auto) 7.83, Lymphocytes # (Auto) 0.98, Monocytes # (Auto) 0.67, Eosinophils # (Auto) 0.07, Basophils # (Auto) 0.03 09/08/17 21:45 Test 09/08/17 21:45 White Blood Count 9.62 K/uL (4.8-10.8) Red Blood Count 4.26 M/uL (4.7-6.1) Hemoglobin 13.0 g/dL (14.0-18.0) Hematocrit 39.1 % (42-52) Mean Corpuscular Volume 91.8 fL (80-100) Mean Corpuscular Hemoglobin 30.5 pg (25-34) Mean Corpuscular Hemoglobin Concent 33.2 g/dl (32-36) Platelet Count 135 K/uL (130-400) Mean Platelet Volume 10.5 fL (7.4-10.4) Neutrophils (%) (Auto) 81.4 % Lymphocytes (%) (Auto) 10.2 % Monocytes (%) (Auto) 7.0 % Eosinophils (%) (Auto) 0.7 % Basophils (%) (Auto) 0.3 % Neutrophils # (Auto) 7.83 K/uL (1.4-6.5) Lymphocytes # (Auto) 0.98 K/uL (1.2-3.4) Monocytes # (Auto) 0.67 K/uL (0.11-0.59) Eosinophils # (Auto) 0.07 K/uL (0-0.5) Basophils # (Auto) 0.03 K/uL (0-0.2) RDW Standard Deviation 47.2 fL (36.4-46.3) RDW Coefficient of Variation 14.3 % (11.5-14.5) Immature Granulocyte % (Auto) 0.4 % Immature Granulocyte # (Auto) 0.04 K/uL (0.00-0.02) Prothrombin Time 10.6 SECONDS (9.0-12.0) Prothromb Time International Ratio 1.0 (0.9-1.1) Activated Partial Thromboplast Time 24.7 SECONDS (21.0-31.0) Partial Thromboplastin Ratio 1.0 Anion Gap 7.0 mmol/L (3-11) Est Creatinine Clear Calc Drug Dose 106.1 ml/min Estimated GFR () 112.6 Estimated GFR (Non- 97.1 BUN/Creatinine Ratio 28.6 (10-20) Calcium Level 8.9 mg/dl (8.5-10.1) Magnesium Level 2.2 mg/dl (1.8-2.4) Total Bilirubin 0.5 mg/dl (0.2-1) Direct Bilirubin 0.2 mg/dl (0-0.2) Aspartate Amino Transf (AST/SGOT) 34 U/L (15-37) Alanine Aminotransferase (ALT/SGPT) 26 U/L (12-78) Alkaline Phosphatase 75 U/L (45-117) Total Creatine Kinase 244 U/L (39-308) Troponin I < 0.015 ng/ml (0-0.045) Total Protein 6.4 gm/dl (6.4-8.2) Albumin 3.1 gm/dl (3.4-5.0) Thyroid Stimulating Hormone (TSH) 1.120 uIu/ml (0.300-4.500) ED Course The patient was evaluated as above. X-ray of the shoulder of the head and cervical spine were performed and read by radiology as above. Patient was reevaluated and findings were discussed. Case was discussed with Dr. Sanz, [facility] hospitalist. He was like consultation with neurosurgery prior to admitting the patient here. Case was discussed with Dr. Lucas, neurosurgery at [facility] in [place]. He feels this is a normal finding following patient's subarachnoid hemorrhage a few months ago. He recommends admitting for observation overnight and will accept the patient for transfer if he worsens or if his repeat head CT shows worsening findings. Case was discussed with Dr. Sanz. He agreed to evaluate the patient for admission. Medical Decision Differential diagnosis includes intracranial hemorrhage, skull fracture, shoulder dislocation, acromioclavicular separation, clavicle fracture, humerus fracture, among others. The patient was evaluated as above. He presents primarily complaining of left shoulder pain. Left shoulder x-ray was performed and does show a significant acromioclavicular separation which will need follow-up with orthopedics. Head CT was performed and showed a questionable finding which appears to be residual from the patient's previous hemorrhagic stroke, however the radiologist was not able to rule out an acute cause. The patient will need close follow-up with repeat head CT in 12-24 hours. The case was discussed with neurosurgery education managers at [facility], Dr. Lucas. He feels this is unlikely to be an acute source and does feel the patient may be observed here overnight. He states he is happy to accept the patient in transfer if his condition worsens or if his head CT shows worsening findings. The [facility] hospitalist service was consulted and agreed to evaluate the patient for admission/observation. Incidentally, the patient was found to have a herpes zoster rash. The patient states this occurred a few weeks ago and thought it was a scrape due to falling down. As this rash has been present for 2 weeks, I do not feel that any antivirals are indicated at this time.. The patient's case was reviewed with Dr. Ayers, ED attending physician, who agreed with my assessment and treatment plan. Medication Reconcilliation Current Medication List: was personally reviewed by me Blood Pressure Screening Patient's blood pressure: Elevated blood pressure (will be followed by hospitalist) Impression Primary Impression: Abnormal CT of brain Additional Impressions: Fall Acromioclavicular separation Herpes zoster Departure Information Referrals Gabriela Pepe DO (PCP) Patient Instructions My [facility] Problem Qualifiers Additional Impressions: Fall Encounter type: initial encounter Qualified Codes: W19.XXXA - Unspecified fall, initial encounter Acromioclavicular separation Encounter type: initial encounter Laterality: left Qualified Codes: S43.102A - Unspecified dislocation of left acromioclavicular joint, initial encounter Herpes zoster Herpes zoster complications: without complications Qualified Codes: B02.9 - Zoster without complications
[2017-09-08] MEDS ORDERED: LIDODERM (LIDOCAINE) PATCH 5% TD ONE (23:30)
[2017-09-08] MEDS ORDERED: IV FLUIDS COMPLETED PRN (23:45)
[2017-09-08 23:49] VITALS: BP 163/97; PULSE 74; TEMP 36.8; O2SAT 98; Ht 177.8 cm; Wt 70.9 kg
--- NOTE | 2017-09-09 02:04 | HISTORY & PHYSICAL EXAMINATION ---
DATE OF ADMISSION: 09/08/2017 PRIMARY CARE PHYSICIAN: Gabriela Pepe DO. CHIEF COMPLAINT: Fall. HISTORY OF PRESENT ILLNESS: History obtained from the patient, records, son. 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 Patient admitted at [facility] last May 2017 for right basal ganglia bleed with mass effect attributed to uncontrolled hypertension. Medical management at [facility]. Patient had to have a PEG tube secondary to swallowing issues, subsequently removed. Patient was at [facility] for a month after the stroke, subsequently discharged home. At home, some residual LUE weakness. T Patient noted to have recurrent falls since last week. He was at his truck unloading stuff today when he twisted around leading him to land on his left side, hitting his left shoulder and left head. Px noted left shoulder pain secondary to fall showing No syncope, no LOC, no headaches. Patient brought to the Emergency Room. MEDICAL HISTORY: As above. SURGERIES: He has had a prostate removal, back surgery, hip surgery. HOME MEDICATIONS: Include Folvite, Vicodin, Arava, Zestoretic, methotrexate, Remeron, prednisone, trazodone, Effexor. ALLERGIES: No drug allergies. FAMILY HISTORY: Breast and colon cancer. PERSONAL AND SOCIAL HISTORY: Nonsmoker, no chronic intake of alcoholic beverages. Jacobs. REVIEW OF SYSTEMS: As per HPI, all 10 systems reviewed, negative. Note of a painful rash on his left chest wall about 2 weeks ago. all other ROS PHYSICAL EXAMINATION: VITAL SIGNS: Blood pressure was noted to be 148/90, pulse rate 78, RR 18, temperature 36.6, sats 97 on room air. GENERAL: Noted to be slightly uncomfortable, pleasant, no respiratory distress. SKIN: Pallor, warm. HEENT: Pale conjunctivae. Dry buccal mucosa. No ptosis. NECK: Supple. No tenderness. CHEST: Rash over left upper trunk, flank not crossing the midline, tender. Decreased breath sounds. HEART RRR, no murmurs ABDOMEN: Soft, nontender. EXTREMITIES: Tenderness on the left posterior shoulder, left shoulder, no gross deformities. NEUROLOGIC: Coherent. L old Facial symmetry, Decreased strength on the left upper extremity, chronic. Gait and stance not assessed. LABORATORY DATA: Hemoglobin was noted to be 13, hematocrit 39.1, white cell count 7.62, platelets 135. Sodium noted to be 136, potassium 3.7, chloride 105, CO2 28, BUN 18, creatinine 0.6, glucose 81. CT of the head showed linear hyperdensity within the right subinsular cortex, large hematoma at this site last May 2017, likely representing trace hematoma. Acute hemorrhage much less likely but impossible to exclude. Consider short term followup after assessment after 12 hours. L Shoulder x-ray showed shoulder separation at the AC joint. Healed left-sided rib fractures. ASSESSMENT: 1. Head trauma abnormal CT of the head - likely residual from recent intracranial hemorrhage (). Patient not complaining of headache, no new neurologic deficits. 2. Hypertension, stable. 3. Posttraumatic L shoulder pain, abnormal x-ray 4. Rheumatoid arthritis on chronic steroid therapy. 5. Chronic anemia, hemoglobin baseline. 6. Herpes zoster for 2 weeks. 7. Ambulatory dysfunction PLAN: Observation PCU, neuro checks Repeat CT head after 12 hours as per recommendation of [facility] neurosurgeon, Dr. Lucas as per ER provider. Lidoderm patch trial for shingles neuralgia. Hesitant to add Gabapentin to patient psychotropic med regimen at night due to fall risk. Orthopedics consult for left shoulder pain, abnormal x-ray sling for now, ice, compress PT, OT evaluation DVT prophylaxis, SCDs regarding recent intracranial hemorrhage. Full code. MTDD
[2017-09-09 04:00] VITALS: BP 166/95; PULSE 86; TEMP 36.5; O2SAT 97
[2017-09-09] MEDS ORDERED: PNEUMOCOCCAL ADMINISTRATION CHARGE ONE (04:00)
[2017-09-09] MEDS ORDERED: PNEUMOCOCCAL POLYSACCHARIDES 25 MCG/0.5 ML VIAL/SYR IM. ONE (04:00)
[2017-09-09 08:05] VITALS: BP 170/98; PULSE 84; TEMP 36.3; O2SAT 97
--- NOTE | 2017-09-09 08:11 | DIAGNOSTIC IMAGING REPORT ---
HEAD WITHOUT CONTRAST (CT) CLINICAL HISTORY: 71 years-old Male with abn ct head, ffup study. Acute fall. Linear hyperdensity within the right subinsular cortex seen on comparison study. History of intraparenchymal hematoma TECHNIQUE: Multiple axial CT images of the head were obtained without contrast. A dose lowering technique was utilized adhering to the principles of ALARA. CT DOSE: 614.27 mGy.cm COMPARISON: CT head 09/08/2017 and 05/10/2017. FINDINGS: There is unchanged ill-defined linear area of increased attenuation involving the right subinsular cortex as seen on image 17 series 2 which is unchanged from comparison. This is within the same distribution as the intraparenchymal hematoma which was noted on study dated 05/10/2017, likely reflecting residual blood products. No acute intracranial hemorrhage, midline shift, abnormal extra-axial collections, hydrocephalus or intracranial mass identified. There is mild atrophy with at least moderate chronic microvascular ischemic changes. There are remote lacunar infarctions of the bilateral morris radiata. No territorial ischemia. No calvarial fracture. The mastoid air cells are clear. There is mild mucosal thickening of the maxillary and ethmoid sinuses. Soft tissues are unremarkable. IMPRESSION: 1. Persistent ill-defined linear area of increased attenuation involving the right subinsular cortex is unchanged from 09/08/2017 and correlates with area of prior intraparenchymal hematoma discussed on CT exam 05/10/2017 suggesting residual/resolving hematoma. 2. Atrophy with chronic microvascular ischemic changes. No territorial ischemia identified. The above report was generated using voice recognition software. It may contain grammatical, syntax or spelling errors. Electronically signed by: Oskar Mendes M.D. 09/09/2017 8:09 AM Dictated Date/Time: 09/09/2017 8:04 AM
--- NOTE | 2017-09-09 08:13 | DIAGNOSTIC IMAGING REPORT ---
CHEST ONE VIEW PORTABLE HISTORY: 71 years-old Male L chest wall pain acute left chest wall pain. COMPARISON: CT abdomen and pelvis 05/04/2017 TECHNIQUE: Portable AP view of the chest FINDINGS: Cardiac silhouette is mildly enlarged, unchanged. There is no pneumothorax, pleural effusion, focal airspace consolidation or overt pulmonary edema. Linear subsegmental bibasilar opacities are noted. Ill-defined nodular opacities of the right lung are noted which may reflect composite pulmonary vasculature measuring up to 3 mm. Remote appearing rib fractures are seen on the left. Degenerative changes are seen within the shoulders and spine. Patient is slightly rotated to the right. IMPRESSION: 1. Mild cardiomegaly without overt pulmonary edema. 2. Linear subsegmental bibasilar opacities favor atelectasis/scarring. 3. Remote left rib fractures The above report was generated using voice recognition software. It may contain grammatical, syntax or spelling errors. Electronically signed by: Oskar Mendes M.D. 09/09/2017 8:12 AM Dictated Date/Time: 09/09/2017 8:09 AM
[2017-09-09] MEDS ORDERED: VENLAFAXINE HCL XR 150 MG CAPXR PO SCH (09:00)
[2017-09-09] MEDS ORDERED: LIDODERM (LIDOCAINE) PATCH 5% TD SCH (09:00)
[2017-09-09] MEDS ORDERED: LISINOPRIL 20 MG TAB PO SCH (09:00)
[2017-09-09] MEDS ORDERED: LDDP5 TD (09:07)
[2017-09-09] MEDS ORDERED: IBUP-1459 PO (09:09)
--- NOTE | 2017-09-09 09:18 | Progress Note ---
Internal Med Progress Note Date of Service: Sep 09, 2017. Provider Documentation: SUBJECTIVE: Patient awake and alert. He is requesting to leave the hospital. Reports left shoulder pain better after lidocaine patch. Patient does not want to stay for further orthopedic evaluation in the hospital. He reports has physical rehab therapy on Monday09/11/17 OBJECTIVE: Exam: GENERAL: no acute distress HEENT: EOMI, no bloody eluates NECK: trachea midline, no JVD CHEST: Rash over left upper trunk, flank not crossing the midline, tender. Decreased breath sounds. HEART RRR, no murmurs ABDOMEN: Soft, nontender. EXTREMITIES: Tenderness on the left posterior shoulder, left shoulder, no gross deformities, left upper extremities in sling NEUROLOGIC: Coherent. L old Facial symmetry, chronic. No right upper extremity weakness ASSESSMENT & PLAN: Left Shoulder X ray 1. No left shoulder fracture is seen. 2. Findings are consistent with shoulder separation at the AC joint CT of Cervical spine 1. There is no evidence of fracture or subluxation involving the cervical spine. 2. Osteopenia and spondylotic change Repeat Head CT on 09/09/17 1. Persistent ill-defined linear area of increased attenuation involving the right subinsular cortex is unchanged from 09/08/2017 and correlates with area of prior intraparenchymal hematoma discussed on CT exam 05/10/2017 suggesting residual/resolving hematoma. 2. Atrophy with chronic microvascular ischemic changes. No territorial ischemia identified. Diagnosis 1. Head trauma with no evidence for acute bleed 2. Hypertension, stable. 3. Posttraumatic L shoulder pain, abnormal x-ray consistent with shoulder separation at the AC joint 4. Rheumatoid arthritis on chronic steroid therapy. 5. Chronic anemia, hemoglobin baseline. 6. Herpes zoster for 2 weeks. DISPOSITION discharge home with follow up to physical therapy rehab as per patient on Monday09/11/17 [facility] Gabriela Pepe DO on Monday 10:45 AM Patient should return to hospital if again having falls or if having severe joint pain or severe headache or loss of consciousness Vital Signs: Date Time Temp Pulse Resp B/P (MAP) Pulse Ox O2 Delivery O2 Flow Rate FiO2 09/09/17 08:05 36.3 84 18 170/98 (122) 97 Room Air 09/09/17 04:00 97 Room Air 09/09/17 04:00 36.5 86 166/95 (118) 97 Room Air 09/08/17 23:49 36.8 74 163/97 98 Room Air 09/08/17 23:23 74 18 149/96 97 Room Air 09/08/17 22:05 78 18 148/93 100 Room Air 09/08/17 19:53 36.6 79 18 100 Room Air Lab Results: Results Past 24 Hours Test 09/08/17 21:45 Range/Units White Blood Count 9.62 4.8-10.8 K/uL Red Blood Count 4.26 4.7-6.1 M/uL Hemoglobin 13.0 14.0-18.0 g/dL Hematocrit 39.1 42-52 % Mean Corpuscular Volume 91.8 80-100 fL Mean Corpuscular Hemoglobin 30.5 25-34 pg Mean Corpuscular Hemoglobin Concent 33.2 32-36 g/dl Platelet Count 135 130-400 K/uL Mean Platelet Volume 10.5 7.4-10.4 fL Neutrophils (%) (Auto) 81.4 % Lymphocytes (%) (Auto) 10.2 % Monocytes (%) (Auto) 7.0 % Eosinophils (%) (Auto) 0.7 % Basophils (%) (Auto) 0.3 % Neutrophils # (Auto) 7.83 1.4-6.5 K/uL Lymphocytes # (Auto) 0.98 1.2-3.4 K/uL Monocytes # (Auto) 0.67 0.11-0.59 K/uL Eosinophils # (Auto) 0.07 0-0.5 K/uL Basophils # (Auto) 0.03 0-0.2 K/uL RDW Standard Deviation 47.2 36.4-46.3 fL RDW Coefficient of Variation 14.3 11.5-14.5 % Immature Granulocyte % (Auto) 0.4 % Immature Granulocyte # (Auto) 0.04 0.00-0.02 K/uL Prothrombin Time 10.6 9.0-12.0 SECONDS Prothromb Time International Ratio 1.0 0.9-1.1 Activated Partial Thromboplast Time 24.7 21.0-31.0 SECONDS Partial Thromboplastin Ratio 1.0 Sodium Level 139 136-145 mmol/L Potassium Level 3.7 3.5-5.1 mmol/L Chloride Level 105 98-107 mmol/L Carbon Dioxide Level 28 21-32 mmol/L Anion Gap 7.0 3-11 mmol/L Blood Urea Nitrogen 18 7-18 mg/dl Creatinine 0.64 0.60-1.40 mg/dl Est Creatinine Clear Calc Drug Dose 106.1 ml/min Estimated GFR () 112.6 Estimated GFR (Non- 97.1 BUN/Creatinine Ratio 28.6 10-20 Random Glucose 81 70-99 mg/dl Calcium Level 8.9 8.5-10.1 mg/dl Magnesium Level 2.2 1.8-2.4 mg/dl Total Bilirubin 0.5 0.2-1 mg/dl Direct Bilirubin 0.2 0-0.2 mg/dl Aspartate Amino Transf (AST/SGOT) 34 15-37 U/L Alanine Aminotransferase (ALT/SGPT) 26 12-78 U/L Alkaline Phosphatase 75 45-117 U/L Total Creatine Kinase 244 39-308 U/L Troponin I < 0.015 0-0.045 ng/ml Total Protein 6.4 6.4-8.2 gm/dl Albumin 3.1 3.4-5.0 gm/dl Thyroid Stimulating Hormone (TSH) 1.120 0.300-4.500 uIu/ml
--- NOTE | 2017-09-09 09:25 | Discharge Instructions ---
Discharge Instructions Date of Service Sep 09, 2017. Admission Reason for Admission: Abnormal Ct Of Brain, Head Trauma Discharge Discharge Diagnosis / Problem: Head injury, left shoulder separation at the AC joint, zoster Discharge Goals Goal(s): Decrease discomfort, Improve function Activity Recommendations Activity Limitations: per Instructions/Follow-up section Lifting Limitations: until after follow-up appointment Exercise/Sports Limitations: until after follow-up appointment Shower/Bathe: no limitations . Instructions / Follow-Up Instructions / Follow-Up Left Shoulder X ray 1. No left shoulder fracture is seen. 2. Findings are are consistent with shoulder separation at the AC joint CT of Cervical spine 1. There is no evidence of fracture or subluxation involving the cervical spine. 2. Osteopenia and spondylotic change Repeat Head CT on 09/09/17 1. Persistent ill-defined linear area of increased attenuation involving the right subinsular cortex is unchanged from 09/08/2017 and correlates with area of prior intraparenchymal hematoma discussed on CT exam 05/10/2017 suggesting residual/resolving hematoma. 2. Atrophy with chronic microvascular ischemic changes. No territorial ischemia identified. Diagnosis 1. Head trauma with no evidence for acute bleed 2. Hypertension, stable. 3. Posttraumatic L shoulder pain, abnormal x-ray consistent with shoulder separation at the AC joint 4. Rheumatoid arthritis on chronic steroid therapy. 5. Chronic anemia, hemoglobin baseline. 6. Herpes zoster for 2 weeks. DISPOSITION discharge home with follow up to physical therapy rehab as per patient on Monday09/11/17 [facility] Gabriela Pepe DO on Monday 10:45 AM Patient should return to hospital if again having falls or if having severe joint pain or severe headache or loss of consciousness Current Hospital Diet Patient's current hospital diet: AHA Diet (Heart Healthy) Discharge Diet Recommended Diet: AHA Diet (Heart Healthy) Pending Studies Studies pending at discharge: no Laboratory Results 09/08/17 21:45 Red Blood Count 4.26, Mean Corpuscular Volume 91.8, Mean Corpuscular Hemoglobin 30.5, Mean Corpuscular Hemoglobin Concent 33.2, Mean Platelet Volume 10.5, Neutrophils (%) (Auto) 81.4, Lymphocytes (%) (Auto) 10.2, Monocytes (%) (Auto) 7.0, Eosinophils (%) (Auto) 0.7, Basophils (%) (Auto) 0.3, Neutrophils # (Auto) 7.83, Lymphocytes # (Auto) 0.98, Monocytes # (Auto) 0.67, Eosinophils # (Auto) 0.07, Basophils # (Auto) 0.03 09/08/17 21:45 Test 09/08/17 21:45 White Blood Count 9.62 K/uL (4.8-10.8) Red Blood Count 4.26 M/uL (4.7-6.1) Hemoglobin 13.0 g/dL (14.0-18.0) Hematocrit 39.1 % (42-52) Mean Corpuscular Volume 91.8 fL (80-100) Mean Corpuscular Hemoglobin 30.5 pg (25-34) Mean Corpuscular Hemoglobin Concent 33.2 g/dl (32-36) Platelet Count 135 K/uL (130-400) Mean Platelet Volume 10.5 fL (7.4-10.4) Neutrophils (%) (Auto) 81.4 % Lymphocytes (%) (Auto) 10.2 % Monocytes (%) (Auto) 7.0 % Eosinophils (%) (Auto) 0.7 % Basophils (%) (Auto) 0.3 % Neutrophils # (Auto) 7.83 K/uL (1.4-6.5) Lymphocytes # (Auto) 0.98 K/uL (1.2-3.4) Monocytes # (Auto) 0.67 K/uL (0.11-0.59) Eosinophils # (Auto) 0.07 K/uL (0-0.5) Basophils # (Auto) 0.03 K/uL (0-0.2) RDW Standard Deviation 47.2 fL (36.4-46.3) RDW Coefficient of Variation 14.3 % (11.5-14.5) Immature Granulocyte % (Auto) 0.4 % Immature Granulocyte # (Auto) 0.04 K/uL (0.00-0.02) Prothrombin Time 10.6 SECONDS (9.0-12.0) Prothromb Time International Ratio 1.0 (0.9-1.1) Activated Partial Thromboplast Time 24.7 SECONDS (21.0-31.0) Partial Thromboplastin Ratio 1.0 Anion Gap 7.0 mmol/L (3-11) Est Creatinine Clear Calc Drug Dose 106.1 ml/min Estimated GFR () 112.6 Estimated GFR (Non- 97.1 BUN/Creatinine Ratio 28.6 (10-20) Calcium Level 8.9 mg/dl (8.5-10.1) Magnesium Level 2.2 mg/dl (1.8-2.4) Total Bilirubin 0.5 mg/dl (0.2-1) Direct Bilirubin 0.2 mg/dl (0-0.2) Aspartate Amino Transf (AST/SGOT) 34 U/L (15-37) Alanine Aminotransferase (ALT/SGPT) 26 U/L (12-78) Alkaline Phosphatase 75 U/L (45-117) Total Creatine Kinase 244 U/L (39-308) Troponin I < 0.015 ng/ml (0-0.045) Total Protein 6.4 gm/dl (6.4-8.2) Albumin 3.1 gm/dl (3.4-5.0) Thyroid Stimulating Hormone (TSH) 1.120 uIu/ml (0.300-4.500) Medical Emergencies . Who to Call and When: Medical Emergencies: If at any time you feel your situation is an emergency, please call 911 immediately. . Non-Emergent Contact Non-Emergency issues call your: Primary Care Provider . . "Provider Documentation" section prepared by Wilfredo Beauchamp. . VTE Core Measure Inpt VTE Proph given/why not?: SCD's
--- NOTE | 2017-09-09 10:10 | Medical Consult ---
Consultation Date of Consultation: Sep 09, 2017. Attending Physician: Wilfredo Beauchamp M.D. Reason for Consultation: left shoulder separation History of Present Illness patient notes left shoulder pain after multiple falls to the left side. He recalls having b/l shoulder "bumps" with increased left shoulder pain s/p fall. He notes it feels better today given the lidocain patch. he is beginning therapy on monday for left side weakness due to history of stroke. Past Medical/Surgical History Medical Problems: (1) Acromioclavicular separation Status: Acute (2) Anxiety Status: Acute (3) Anxiety Status: Acute (4) Depression Status: Acute (5) Fall Status: Acute (6) Feeding tube blocked Status: Acute (7) Hematuria Status: Acute (8) Hemorrhagic stroke Status: Acute (9) Herpes zoster Status: Acute (10) Pulmonary nodule Status: Acute Family History No pertinent family history Social History Smoking Status: Former Smoker Drug Use: none Marital Status: Housing Status: lives with family Occupation Status: employed Allergies Coded Allergies: No Known Allergies (Unverified , NONE, 05/10/17) Current Inpatient Medications Current Inpatient Medications Medications (Trade) Dose Ordered Sig/Bryce Route Start Time Stop Time Status Last Admin Dose Admin Acetaminophen (Tylenol Tab) 650 mg Q4H PRN PO 09/08/17 23:00 10/08/17 22:59 Nitroglycerin (Nitrostat Tab) 0.4 mg UD PRN SL 09/08/17 23:00 10/08/17 22:59 Folic Acid (Folvite Tab) 1 mg DAILY PO 09/09/17 09:00 10/09/17 08:59 09/09/17 08:35 1 MG Acetaminophen/ Hydrocodone Bitart (Heath 5/325 Tab) 1 tab Q4H PRN PO 09/08/17 23:00 09/22/17 22:59 09/09/17 04:00 1 TAB Methotrexate (Methotrexate Tab) 20 mg Mo@0900 PO 09/11/17 09:00 10/11/17 08:59 Prednisone (PredniSONE TAB) 5 mg DAILY PO 09/09/17 09:00 10/09/17 08:59 09/09/17 08:36 5 MG Venlafaxine HCl (effeXOR EXTENDED REL CAP) 150 mg DAILY PO 09/09/17 09:00 10/09/17 08:59 09/09/17 08:35 150 MG Miscellaneous Information (Order Awaiting Action) 1 ea QS N/A 09/09/17 00:00 10/09/17 00:00 Mirtazapine (Remeron Tab) 7.5 mg HS PO 09/09/17 21:00 10/09/17 20:59 Trazodone HCl (Desyrel Tab) 150 mg HS PO 09/09/17 21:00 10/09/17 20:59 Ondansetron HCl (Zofran Inj) 4 mg Q6H PRN IV 09/08/17 23:00 10/08/17 22:59 Morphine Sulfate (MoRPHine SULFATE INJ) 4 mg Q6H PRN IV 09/08/17 23:00 09/22/17 22:59 Lisinopril (Zestril Tab) 20 mg QAM PO 09/09/17 09:00 10/09/17 08:59 09/09/17 08:35 20 MG Lidocaine (Lidoderm Patch 5%) 1 patch QAM TD 09/09/17 09:00 10/09/17 08:59 09/09/17 08:36 1 PATCH Miscellaneous (Remove Lidoderm Patch) 1 ea DAILY@21 N/A 09/09/17 21:00 10/09/17 20:59 Miscellaneous (Iv Fluids Completed) 1 ea PRN PRN N/A 09/08/17 23:45 09/08/18 23:44 Review of Systems Constitutional: + weakness (left sided weakness), No fever, No chills Cardiovascular: No chest pain Musculoskeletal: + joint pain (left shoulder ac joint) Physical Exam Date Time Temp Pulse Resp B/P (MAP) Pulse Ox O2 Delivery O2 Flow Rate FiO2 09/09/17 08:05 36.3 84 18 170/98 (122) 97 Room Air 09/09/17 08:00 Room Air 09/09/17 04:00 97 Room Air 09/09/17 04:00 36.5 86 166/95 (118) 97 Room Air 09/08/17 23:49 36.8 74 163/97 98 Room Air 09/08/17 23:23 74 18 149/96 97 Room Air 09/08/17 22:05 78 18 148/93 100 Room Air 09/08/17 19:53 36.6 79 18 100 Room Air General Appearance: no apparent distress Extremities/Musculoskelatal: normal range of motion (painful active ROM left shoulder), non-tender (tenderness to left ac joint), + pertinent finding (+ piano bailey sign, ac step off, no numbness/tingling, full digital ROM) Laboratory Results Last 24 Hours Test 09/08/17 21:45 White Blood Count 9.62 K/uL Red Blood Count 4.26 M/uL Hemoglobin 13.0 g/dL Hematocrit 39.1 % Mean Corpuscular Volume 91.8 fL Mean Corpuscular Hemoglobin 30.5 pg Mean Corpuscular Hemoglobin Concent 33.2 g/dl Platelet Count 135 K/uL Mean Platelet Volume 10.5 fL Neutrophils (%) (Auto) 81.4 % Lymphocytes (%) (Auto) 10.2 % Monocytes (%) (Auto) 7.0 % Eosinophils (%) (Auto) 0.7 % Basophils (%) (Auto) 0.3 % Neutrophils # (Auto) 7.83 K/uL Lymphocytes # (Auto) 0.98 K/uL Monocytes # (Auto) 0.67 K/uL Eosinophils # (Auto) 0.07 K/uL Basophils # (Auto) 0.03 K/uL RDW Standard Deviation 47.2 fL RDW Coefficient of Variation 14.3 % Immature Granulocyte % (Auto) 0.4 % Immature Granulocyte # (Auto) 0.04 K/uL Prothrombin Time 10.6 SECONDS Prothromb Time International Ratio 1.0 Activated Partial Thromboplast Time 24.7 SECONDS Partial Thromboplastin Ratio 1.0 Sodium Level 139 mmol/L Potassium Level 3.7 mmol/L Chloride Level 105 mmol/L Carbon Dioxide Level 28 mmol/L Anion Gap 7.0 mmol/L Blood Urea Nitrogen 18 mg/dl Creatinine 0.64 mg/dl Est Creatinine Clear Calc Drug Dose 106.1 ml/min Estimated GFR () 112.6 Estimated GFR (Non- 97.1 BUN/Creatinine Ratio 28.6 Random Glucose 81 mg/dl Calcium Level 8.9 mg/dl Magnesium Level 2.2 mg/dl Total Bilirubin 0.5 mg/dl Direct Bilirubin 0.2 mg/dl Aspartate Amino Transf (AST/SGOT) 34 U/L Alanine Aminotransferase (ALT/SGPT) 26 U/L Alkaline Phosphatase 75 U/L Total Creatine Kinase 244 U/L Troponin I < 0.015 ng/ml Total Protein 6.4 gm/dl Albumin 3.1 gm/dl Thyroid Stimulating Hormone (TSH) 1.120 uIu/ml Assessment & Plan Left shoulder AC separation, acute vs chronic We discussed the X-ray findings today. He is overall feeling better since lidocaine patch He will use sling for comfort and discussed ROM exercises today. Recommend he f/u in 1 week with [facility] with Dr. Hines/Cirilo Beckett, [id number]-[id number] He is aware of this. Orthopedics will sign off, Available if needed for further input.
[2017-09-09 10:59] VITALS: BP 170/98; PULSE 84; TEMP 36.3; O2SAT 97
--- NOTE | 2017-09-09 16:05 | Discharge Summary ---
Discharge Summary Date of Service Sep 09, 2017. Discharge Summary Admission Date: Sep 08, 2017 at 22:53 Discharge Date: Sep 09, 2017 Discharge Disposition: Home Principal Diagnosis: Head injury, left shoulder separation at the AC joint, zoster Medication Reconciliation New Medications: Ibuprofen (Motrin) 400 Mg Tab 400 MG PO Q6H PRN for Pain for 10 Days, #40 TAB Lidocaine (Lidocaine) 1 Patch Tdsy 1 PATCH TD QAM for 5 Days, #10 APPLN apply the patch for 12 hours then remove the patch for 12 hours. use 1 patch daily Continued Medications: Folic Acid (Folvite) 1 Mg Tab 1 MG PO DAILY Hydrocodone/Acetaminophen 5MG/325MG ([place] 5MG/325MG) Tab 1 TABLET PO Q6 PRN for Pain, TAB PRN PAIN Leflunomide (Arava) 10 Mg Tab 10 MG PO DAILY Lisinopril/Hctz (Zestoretic 20MG/12.5MG) Tab 1 TAB PO DAILY, TAB Methotrexate (Methotrexate) 2.5 Mg Tab 20 MG PO WK 8 TABLETS BY MOUTH WEEKLY, ON MONDAYS* Mirtazapine Soltab (Remeron Soltab) 15 Mg Soltab 7.5 MG PO HS, TAB Prednisone (Prednisone) 5 Mg Tab 5 MG PO DAILY Trazodone HCl (Trazodone HCl) 150 Mg Tab 150 MG PO HS Venlafaxine Hcl (Effexor Xr) 150 Mg Cap 1 CAP PO DAILY for 30 Days, #30 CAP 2 Refills MED IS SUPOSSED TO DECREASE TO 75 MG DAILY ON 09/09/17 Admission Information HPI (per Admitting provider): HISTORY OF PRESENT ILLNESS: History obtained from the patient, records, son. 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 Patient admitted at [facility] last May 2017 for right basal ganglia bleed with mass effect attributed to uncontrolled hypertension. Medical management at [facility] [place]. Patient had to have a PEG tube secondary to swallowing issues, subsequently removed. Patient was at [facility] for a month after the stroke, subsequently discharged home. At home, some residual LUE weakness. T Patient noted to have recurrent falls since last week. He was at his truck unloading stuff today when he twisted around leading him to land on his left side, hitting his left shoulder and left head. Px noted left shoulder pain secondary to fall showing No syncope, no LOC, no headaches. Patient brought to the Emergency Room. MEDICAL HISTORY: As above. SURGERIES: He has had a prostate removal, back surgery, hip surgery. HOME MEDICATIONS: Include Folvite, Vicodin, Arava, Zestoretic, methotrexate, Remeron, prednisone, trazodone, Effexor. ALLERGIES: No drug allergies. FAMILY HISTORY: Breast and colon cancer. PERSONAL AND SOCIAL HISTORY: Nonsmoker, no chronic intake of alcoholic beverages. Jacobs. REVIEW OF SYSTEMS: As per HPI, all 10 systems reviewed, negative. Note of a painful rash on his left chest wall about 2 weeks ago. all other ROS Physical Exam (per Admitting): PHYSICAL EXAMINATION: VITAL SIGNS: Blood pressure was noted to be 148/90, pulse rate 78, RR 18, temperature 36.6, sats 97 on room air. GENERAL: Noted to be slightly uncomfortable, pleasant, no respiratory distress. SKIN: Pallor, warm. HEENT: Pale conjunctivae. Dry buccal mucosa. No ptosis. NECK: Supple. No tenderness. CHEST: Rash over left upper trunk, flank not crossing the midline, tender. Decreased breath sounds. HEART RRR, no murmurs ABDOMEN: Soft, nontender. EXTREMITIES: Tenderness on the left posterior shoulder, left shoulder, no gross deformities. NEUROLOGIC: Coherent. L old Facial symmetry, Decreased strength on the left upper extremity, chronic. Gait and stance not assessed. Hospital Course Left Shoulder X ray 1. No left shoulder fracture is seen. 2. Findings are consistent with shoulder separation at the AC joint CT of Cervical spine 1. There is no evidence of fracture or subluxation involving the cervical spine. 2. Osteopenia and spondylotic change Repeat Head CT on 09/09/17 1. Persistent ill-defined linear area of increased attenuation involving the right subinsular cortex is unchanged from 09/08/2017 and correlates with area of prior intraparenchymal hematoma discussed on CT exam 05/10/2017 suggesting residual/resolving hematoma. 2. Atrophy with chronic microvascular ischemic changes. No territorial ischemia identified. Diagnosis 1. Head trauma with no evidence for acute bleed 2. Hypertension, stable. 3. Posttraumatic L shoulder pain, abnormal x-ray consistent with shoulder separation at the AC joint 4. Rheumatoid arthritis on chronic steroid therapy. 5. Chronic anemia, hemoglobin baseline. 6. Herpes zoster for 2 weeks. DISPOSITION discharge home with follow up to physical therapy rehab as per patient on Monday09/11/17 [facility] Gabriela Pepe, on Monday 10:45 AM Patient should return to hospital if again having falls or if having severe joint pain or severe headache or loss of consciousness Total time spent on discharge = 60 minutes This includes examination of the patient, discharge planning, medication reconciliation, and communication with other providers. Discharge Instructions see above
[2017-09-09] MEDS ORDERED: TRAZODONE HCL 50 MG TAB PO SCH (21:00)
[2017-09-09] MEDS ORDERED: MIRTAZAPINE TAB 15 MG TAB PO SCH (21:00)
[2017-09-11] MEDS ORDERED: METHOTREXATE 2.5 MG TAB PO SCH (09:00)
== END 2017-09-09 11:19 | disposition home or self-care (01) ==
LOC: C.EDB 19:40 → C.2T 22:53 → ENRESERV 23:00 → EDBEDREQ 23:06
PROVIDERS: ADMIT Hospitalist; ATTEND Hospitalist
DX: S09.90XA Unspecified injury of head, initial encounter (principal); S43.102A Unspecified dislocation of left acromioclavicular joint, initial encounter; V87.8XXA Person injured in other specified noncollision transport accidents involving motor vehicle (traffic), initial encounter; B02.9 Zoster without complications; I10 Essential (primary) hypertension; M06.9 Rheumatoid arthritis, unspecified; Z79.52 Long term (current) use of systemic steroids; D64.9 Anemia, unspecified

== ENCOUNTER → 2017-10-26 | Day surgery (SDC) | payer OTHER ==
[2017-10-19 07:54] VITALS: Ht 177.8 cm; Wt 68.2 kg
[2017-10-19 12:19] LABS: BASO % 0.8 %; BASO ABS # 0.06 K/uL (0-0.2); EOS ABS # 0.15 K/uL (0-0.5); HEMATOCRIT 37.8 % (42-52); HEMOGLOBIN 12.7 g/dL (14.0-18.0); IG# 0.02 K/uL (0.00-0.02); LYMPH % 14.2 %; LYMPH ABS # 1.06 K/uL (1.2-3.4); MEAN CELL VOLUME 91.7 fL (80-100); MEAN CORPUSCULAR HEMOGLOBIN 30.8 pg (25-34); MEAN CORPUSCULAR HGB CONC 33.6 g/dl (32-36); MEAN PLATELET VOLUME 10.8 fL (7.4-10.4); MONO % 6.7 %; NEUT ABS # 5.69 K/uL (1.4-6.5); PLATELET COUNT 162 K/uL (130-400); RED CELL DISTRIBUTION WIDTH CV 14.8 % (11.5-14.5); RED CELL DISTRIBUTION WIDTH SD 49.1 fL (36.4-46.3); WHITE BLOOD COUNT 7.48 K/uL (4.8-10.8)
[2017-10-19 12:31] LABS: CALCIUM 9.1 mg/dl (8.5-10.1); CREATININE 0.76 mg/dl (0.60-1.40); POTASSIUM 3.2 mmol/L (3.5-5.1)
[~2017-10-26] VITALS: Ht 177.8 cm; Wt 68.2 kg
[~2017-10-26] MED LIST changes: -ASPI-435 PO; +EFF75 PO; -FOLI1TAB7 PO; +FOLI1TAB8 PO; +IBUP-1449 PO; +KETO10TA PO; +LISI-787 PO; +OXYC-57 PO; -SERT50TA PO
--- NOTE | 2017-12-22 12:00 | EDITING REQUIRED CODING QUERY ---
REASON FOR CANCELLATION EMR indicates that the procedure that was to be performed on 10/26/17 was cancelled. Please document the reason for cancellation below: REASON FOR CANCELLATION: __Cardiac related issues Thank you for your assistance, Magy Escamilla - Combine Inspector
== END | disposition home or self-care (01) ==
LOC: EDSTATUS 11:00 → C.PAT 15:45
PROVIDERS: ATTEND Orthopaedic Surgery
DX: S43.102A Unspecified dislocation of left acromioclavicular joint, initial encounter (principal); W17.89XA Other fall from one level to another, initial encounter; Z53.09 Procedure and treatment not carried out because of other contraindication; Z01.810 Encounter for preprocedural cardiovascular examination; Z01.812 Encounter for preprocedural laboratory examination; Z96.643 Presence of artificial hip joint, bilateral; Z90.79 Acquired absence of other genital organ(s); Z90.49 Acquired absence of other specified parts of digestive tract

== ENCOUNTER 2017-12-12 09:33 | Day surgery (SDC) | payer OTHER ==
[2017-11-02 09:02] VITALS: BMI 21.0
--- NOTE | 2017-12-07 15:36 | HISTORY & PHYSICAL EXAMINATION ---
DATE OF ADMISSION: 12/12/2017 HISTORY AND PHYSICAL ADMISSION NOTE PREOPERATIVE DIAGNOSIS: Grade 5 left acromioclavicular joint separation. HISTORY OF PRESENT ILLNESS: Samy is a 72-year-old male who fell off a pickup truck 3 months ago. He landed directly on to his left shoulder. He had severe left AC joint separation. He initially went to the Emergency Room and then came to my office. Due to health reasons, surgery has been delayed. Fortunately, he is healthy to proceed with surgery and he would like his shoulder fixed. We talked about conservative treatment, but he is quite painful with his shoulder and the deformity is quite severe. He elected to proceed with AC joint reconstruction. PAST MEDICAL HISTORY: Significant for osteoarthritis and hypertension. MEDICATIONS: Include Motrin, lidocaine, Effexor, prednisone, methotrexate, leflunomide, folic acid and lisinopril. PAST SURGICAL HISTORY: Significant for lumbar fusion, bilateral total hip arthroplasties, appendectomy and prostate surgery. ALLERGIES: None. FAMILY HISTORY: Significant for a stroke. SOCIAL HISTORY: The patient is , has 4 kids and remains very active. REVIEW OF SYSTEMS: He complains of significant left shoulder pain and deformity. All other pertinent review of systems are negative. PHYSICAL EXAMINATION: GENERAL: He is awake, alert and orient x3. He is in no apparent distress. He is very pleasant. HEENT: Pupils equal, round and reactive to light. Extraocular movements intact. Oral mucosa is pink and moist. HEART: Regular rate per radial pulse. LUNGS: Shirin symmetrically bilaterally with no audible breath sounds. ABDOMEN: Soft, nontender, nondistended. MUSCULOSKELETAL: On physical examination of the shoulder, he has a very obvious gross deformity of the left AC joint. The distal clavicle is puckering the skin and tenting the skin, but is not breaking through the skin. He has significant tenderness to palpation in that area. His radial, median and ulnar nerves were checked and intact at his wrist. I am still unable to get a really good exam of his axillary nerve, but I am able to gently reduce the deformity in the office. IMAGING DATA: X-rays of the shoulder showed grade 4 AC joint separation. IMPRESSION: Grade 5 acromioclavicular joint separation. PLAN: Will proceed with AC joint reconstruction including grafting and internal brace. Postoperatively, he was placed in an arm sling and discharged to home on oral pain medications. MTDD
[~2017-12-12] VITALS: Ht 177.8 cm; Wt 68.2 kg
[~2017-12-12 09:33] MED LIST changes: +ACETAMINOPHEN 500 MG TAB PO SCH; +CEFAZOLIN 2000MG IV PUSH 15 ML IV SCH; +FAMOTIDINE 20 MG TAB PO SCH; +GABAPENTIN 300 MG CAP PO SCH; -IBUP-1449 PO; -KETO10TA PO; +LACTATED RINGER'S 1000ML 1,000 ML IV SCH; +LACTATED RINGER'S 1000ML IV SCH; -OXYC-57 PO; +ROPIVACAINE 0.5% 5 MG/ML 30 ML VIAL ONE
[2017-12-12 09:56] VITALS: BP 138/93; PULSE 80; TEMP 36.5; O2SAT 95; Ht 177.8 cm; Wt 68.2 kg
--- NOTE | 2017-12-12 10:28 | History & Physical Bridge Note ---
H&P Re-Evaluation Bridge Note: I have examined the patient, reviewed the History & Physical and in the interval since the performance of the History & Physical I have noted the following changes of clinical significance: No changes noted
[2017-12-12] MEDS ORDERED: BUPIVACAINE/EPINEPHRINE 0.5% MPF 1:200,000 30 ML VIAL ONE (10:46)
[2017-12-12] MEDS ORDERED: EpINEphrine HCL INJ 1 MG/ML 1ML SYRINGE ONE ×2 (10:46)
[2017-12-12] MEDS ORDERED: DEXAMETHASONE SOD INJ 4 MG/ML VIAL ONE (11:08)
[2017-12-12] MEDS ORDERED: ONDANSETRON INJ 2 MG/ML 2 ML VIAL ONE (11:08)
[2017-12-12] MEDS ORDERED: MIDAZOLAM HCL 1 MG/ML 2ML VIAL ONE (11:08)
[2017-12-12] MEDS ORDERED: LIDOCAINE HCL 2% 2 ML VIAL (20MG/ML) ONE (11:08)
[2017-12-12] MEDS ORDERED: FENTANYL CITRATE INJ 50 MCG/1 ML 2 ML VIAL ONE (11:08)
[2017-12-12] MEDS ORDERED: PROPOFOL IV EMULSION 10 MG/ML 20 ML VIAL IV ONE (11:08)
[2017-12-12] MEDS ORDERED: ROCURONIUM BROMIDE 10 MG/ML 5 ML VIAL IV ONE (11:43)
[2017-12-12] MEDS ORDERED: LABETALOL HCL IV 5 MG/ML 20ML IV PRN (11:45)
[2017-12-12] MEDS ORDERED: ATROPINE SULFATE 0.1 MG/ML 5ML SYR IV PRN (11:45)
[2017-12-12] MEDS ORDERED: HYDROmorphone INJ 2 MG/ML SYR/VIAL IV PRN (11:45)
[2017-12-12] MEDS ORDERED: ONDANSETRON INJ 2 MG/ML 2 ML VIAL IV PRN ×2 (11:45→15:45)
[2017-12-12] MEDS ORDERED: HYDROCORTISONE SOD SUCCINATE 100 MG/2 ML VIAL ONE (13:00)
--- NOTE | 2017-12-12 14:38 | DIAGNOSTIC IMAGING REPORT ---
INTRAOPERATIVE RADIOGRAPH CLINICAL HISTORY: Left shoulder arthroscopy. Fluoroscopy time: 3 seconds. FINDINGS: A spot fluoroscopic view of the left shoulder is presented. No bony abnormality is clearly seen. IMPRESSION: Intraoperative image of the left shoulder. See operative report for detailed findings. Electronically signed by: Jake Morocho M.D. 12/12/2017 2:36 PM Dictated Date/Time: 12/12/2017 2:36 PM
[2017-12-12] MEDS ORDERED: EpHEDrine SULFATE 50MG/5ML SYR ONE (15:20)
[2017-12-12] MEDS ORDERED: KETO10TA PO (15:43)
[2017-12-12] MEDS ORDERED: OXYC-57 PO (15:43)
[2017-12-12] MEDS ORDERED: SODIUM CHLORIDE 0.9% 1000ML 1,000 ML IV SCH (15:44)
--- NOTE | 2017-12-12 15:44 | Discharge Instructions ---
Discharge Instructions Date of Service Dec 12, 2017. Admission Reason for Admission: Left Shoulder Acromioclavicular Joint Dislocation Discharge Discharge Diagnosis / Problem: SAME ABOVE Discharge Goals Goal(s): Decrease discomfort, Improve function, Increase independence Activity Recommendations Activity Limitations: as noted below Lifting Limitations: until after follow-up appointment Exercise/Sports Limitations: until after follow-up appointment Shower/Bathe: tomorrow . Instructions / Follow-Up Instructions / Follow-Up MEDICATIONS: * Resume previous medications unless instructed otherwise by your surgeon. * Always take pain medication on a full stomach or with food to avoid upset stomach. * Do not drink alcohol or drive while taking narcotics. * Ibuprofen or Tylenol may be taken if narcotic not needed. SPECIAL CARE INSTRUCTIONS: __ None _X_ Keep extremity elevated and iced x 48 hours; apply ice 20-30 minutes 8-10 times/day. May remove at night. __ Sling __24 hrs/day __ Remove at night _X_ Shoulder Immobilizer (MAY REMOVE AFTER 48 HOURS ONLY TO SHOWER AND FOR THERAPY) _X_ 24 hrs/day __ Remove at night _X_ Dressing __ Maintain until seen in office, may shower with plastic over site _X_ Remove dressings in 24-48 hours and then may shower _X_ Cover incisions with band-aids after showering __ Do not remove steri-strips Call physician if chills or temperature rises above 102 degrees or pain unrelieved by prescribed pain medications at . . Current Hospital Diet Patient's current hospital diet: Discharge Diet Recommended Diet: Regular Diet Fluid Restriction: None Pending Studies Studies pending at discharge: no Work Instructions Lifting Limitations: NO LIFTING WITH LEFT ARM Medical Emergencies . Who to Call and When: Medical Emergencies: If at any time you feel your situation is an emergency, please call 911 immediately. . Non-Emergent Contact Non-Emergency issues call your: Primary Care Provider, Hospital Doctor Call Non-Emergent contact if: you have a fever, temperature is above 101.5 . "Provider Documentation" section prepared by New Mckoy. . VTE Core Measure Inpt VTE Proph given/why not?: Laurie Reyna, DIANA's
[2017-12-12] MEDS ORDERED: OXYCODONE/ACETAMINOPHEN 5-325 TAB PO PRN ×2 (15:45)
[2017-12-12 16:46] VITALS: BP 136/74; PULSE 72; TEMP 36.5; O2SAT 95
--- NOTE | 2017-12-12 16:48 | Anesthesiology Progress Note ---
Anesthesia Post Op Note Date & Time Dec 12, 2017 at 16:47 Vital Signs Pain Intensity: 0 Vital Signs Past 12 Hours Date Time Temp Pulse Resp B/P (MAP) Pulse Ox O2 Delivery O2 Flow Rate FiO2 12/12/17 16:30 36.7 69 19 128/79 94 Room Air 12/12/17 16:20 74 15 125/76 96 Room Air 12/12/17 16:10 83 17 140/86 99 Oxymask 8 12/12/17 16:00 81 17 137/85 99 Oxymask 8 12/12/17 15:54 36.3 90 16 157/95 100 Oxymask 10 12/12/17 09:56 36.5 80 20 138/93 95 Room Air Notes Mental Status: alert / awake / arousable, participated in evaluation Pt Amnestic to Procedure: Yes Nausea / Vomiting: adequately controlled Pain: adequately controlled Airway Patency, RR, SpO2: stable & adequate BP & HR: stable & adequate Hydration State: stable & adequate Anesthetic Complications: no major complications apparent neurologically intact and hemodynamically stable
[2017-12-12 17:20] VITALS: BP 128/72; PULSE 83; O2SAT 96
[2017-12-12 17:45] VITALS: BP 123/77; PULSE 90; TEMP 36.5; O2SAT 99
--- NOTE | 2017-12-12 18:08 | OPERATIVE REPORT ---
DATE OF OPERATION: 12/12/2017 PREOPERATIVE DIAGNOSES: 1. Grade 5 left acromioclavicular joint separation with severe instability. 2. Chronic retracted subscapularis tear and medially subluxated biceps tendon. POSTOPERATIVE DIAGNOSIS: Same. PROCEDURE: Left shoulder diagnostic arthroscopy with limited debridement, biceps tenotomy AC joint reconstruction including capsular plication and grafting with open anterior subscapularis repair. SURGEON: Bill Rodriguez DO. FINISH INSPECTOR: New Mckoy PA-C, whose assistance was necessary for retraction and closure. ANESTHESIA: General with a left interscalene nerve block. COMPLICATIONS: None. CONDITION: Stable to PACU. INDICATIONS: Samy is a pleasant 72-year-old male who fell about 3 months ago out of his truck. He sustained a severe injury to his left shoulder. X-rays showed a grade 5 AC joint separation, but it was partly posterior as well. It was kind of alf between a grade 4 and grade 5. He has severe instability with his shoulder. He had constant pain. Because of medical reasons he was unable to undergo immediate fixation. MRI did show a retracted subscapularis tear and there was some fat atrophy but the chronicity was difficult to determine. There was also medial subluxation of his biceps tendon. He elected to undergo arthroscopy and open repairs. DESCRIPTION OF THE PROCEDURE: On 12/12/2017, he arrived at [facility] for the above procedure. He was seen in the preoperative holding area and the operative extremity was identified and signed. He was given a preoperative antibiotic and a left interscalene nerve block. He was taken back to the operating room, laid on the table in supine position and put under general anesthesia. He was put into the beachchair position. The left shoulder was prepped and draped in sterile fashion. Time-out was done and the patient and operative extremity was properly identified. A scope was introduced into the posterior portal. Diagnostic arthroscopy showed no cartilage damage to the humeral head or the glenoid. The subscapularis was torn off. It was a very strange tear. The upper border was still partly attached. There was a split down the middle of it; however, the majority of it looked like it was detached. The supraspinatus, infraspinatus and teres minor were checked and intact. An anterior portal was made. A shaver was used to better define the subscapularis tear. I used a cuff grasper and felt that the subscapularis may be repairable. I first decided to do the AC joint reconstruction. The rotator interval was opened up and the undersurface of the coracoid was cleaned. A longitudinal incision was then made about 3.5 cm proximal to the distal clavicle. Dissection was taken down through the fascia and the proximal clavicle was exposed. An Arthrex Dog Bone button kit was then used. The guide was then placed through the anterior portal and the bullet was placed on top of the clavicle. A guide pin was passed. I was happy with the placement. A FiberLink was then passed through the cannulated drill and a dog bone button was passed in a retrograde fashion. It seated nicely on the undersurface of the coracoid. The button was then tied to the top of the clavicle. This gave good fixation. A single fluoroscopic image showed anatomic reduction. The tails were tied tightly. The scope was placed back into the joint. A peroneus longus allograft was then placed around the coracoid and tied over the clavicle. This gave good fixation and added a biologic fixation to the construct. It also helped prevent anterior, posterior sliding. Given the level of instability, I decided to do an internal brace. An anterior incision was made directly over the AC joint. The acromion and the distal clavicle were both visualized. I tried a 3.5 mm anchor as well as a 4.75 mm anchor in the acromion. However, it did not hold. They kept pulling out. His ages bone quality was poor and I was unable to do the internal brace. I did, however, spend a lot of time plicating the capsule of the acromioclavicular ligaments. This gave even further stability to the joint. Attention was then made to the subscapularis repair. An anterior incision was made through the deltopectoral interval. The anterior shoulder was easily exposed. A margin convergence repair was done of the subscapularis and then it was brought down to an Arthrex SpeedBridge configuration using 4.75 mm BioComposite SwiveLock suture anchors and FiberTapes. This gave a nice overall repair. Although it was a chronic tear, I felt I was able to get a nice repair of the subscapularis. The wound was then irrigated. Incisions were closed with 2-0 Vicryl and rose marie. He was then placed in a soft dressing and a regular arm sling. He was then extubated, transferred to a [facility] and taken to the postanesthesia care unit in stable condition. He tolerated the procedure well. I attest to the content of the Intraoperative Record and any orders documented therein. Any exception s are noted below.
== END 2017-12-12 17:46 | disposition home or self-care (01) ==
LOC: C.ACU 09:33
PROVIDERS: ATTEND Orthopaedic Surgery
DX: S43.102A Unspecified dislocation of left acromioclavicular joint, initial encounter (principal); M25.312 Other instability, left shoulder; S46.012A Strain of muscle(s) and tendon(s) of the rotator cuff of left shoulder, initial encounter; S46.212A Strain of muscle, fascia and tendon of other parts of biceps, left arm, initial encounter; V89.9XXA Person injured in unspecified vehicle accident, initial encounter; Z86.73 Personal history of transient ischemic attack (TIA), and cerebral infarction without residual deficits; I10 Essential (primary) hypertension

== ENCOUNTER 2018-02-13 11:34 | Emergency (ER) | payer OTHER ==
[~2018-02-13] VITALS: Ht 177.8 cm; Wt 70.0 kg
[~2018-02-13 11:34] MED LIST changes: -ACETAMINOPHEN 500 MG TAB PO SCH; -CEFAZOLIN 2000MG IV PUSH 15 ML IV SCH; -FAMOTIDINE 20 MG TAB PO SCH; -GABAPENTIN 300 MG CAP PO SCH; +KETO10TA PO; -LACTATED RINGER'S 1000ML 1,000 ML IV SCH; -LACTATED RINGER'S 1000ML IV SCH; +OXYC-57 PO; -ROPIVACAINE 0.5% 5 MG/ML 30 ML VIAL ONE
[2018-02-13 11:41] VITALS: TEMP 36.9; Ht 177.8 cm; Wt 70.0 kg
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
[2018-02-13 12:41] VITALS: BP 135/74; PULSE 78; O2SAT 95
== END 2018-02-13 12:42 | disposition home or self-care (01) ==
LOC: EDBD 11:34 → C.EDA 11:35
DX: R07.81 Pleurodynia (principal); V47.5XXA Car driver injured in collision with fixed or stationary object in traffic accident, initial encounter; Y92.410 Unspecified street and highway as the place of occurrence of the external cause; M19.90 Unspecified osteoarthritis, unspecified site; Z79.52 Long term (current) use of systemic steroids; Z79.899 Other long term (current) drug therapy

== ENCOUNTER 2019-12-18 22:28 | Inpatient (IN) ==
[2019-12-18] MEDS ORDERED: SODIUM CHLORIDE 0.9% 500 ML IV SCH (23:00)
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
[2019-12-18 23:30] LABS: Basophils # (auto) 0.04 K/uL (0-0.2); Basophils % (auto) 0.4 %; Eosinophils % (auto) 1.1 %; Hematocrit (blood only) 43.9 % (42-52); Hemoglobin 14.9 g/dL (14.0-18.0); Immature Granulocytes # (auto) 0.02 K/uL (0.00-0.02); Immature Granulocytes % (auto) 0.2 %; Lymphocytes # (auto) 1.08 K/uL (1.2-3.4); Mean Corpuscular Hemoglobin 31.2 pg (25-34); Mean Corpuscular Hgb Conc 33.9 g/dL (32-36); Mean Corpuscular Volume 91.8 fL (80-100); Mean Platelet Volume 10.4 fL (7.4-10.4); Monocytes # (auto) 1.05 K/uL (0.11-0.59); Monocytes % (auto) 11.7 %; Neutrophils # (auto) 6.72 K/uL (1.4-6.5); Neutrophils % (auto) 74.6 %; Platelet Count 187 K/uL (130-400); RDW Coefficient of Variation 15.3 % (11.5-14.5); RDW Standard Deviation 51.1 fL (36.4-46.3); Red Blood Count 4.78 M/uL (4.7-6.1); White Blood Count 9.01 K/uL (4.8-10.8)
[2019-12-18 23:47] LABS: Alanine Aminotransferase 22 U/L (12-78); Albumin Level 3.2 gm/dl (3.4-5.0); Aspartate Aminotransferase 23 U/L (15-37); BUN Creatinine Ratio 17.8 (10-20); Blood Urea Nitrogen 17 mg/dl (7-18); Calcium 9.2 mg/dl (8.5-10.1); Carbon Dioxide 27 mmol/L (21-32); Chloride 102 mmol/L (98-107); Est GFR (African American) 88.6; Est GFR (Non-African American) 76.5; Glucose 90 mg/dl (70-99); Magnesium 2.1 mg/dl (1.8-2.4); Potassium 3.4 mmol/L (3.5-5.1); Sodium 137 mmol/L (136-145)
[2019-12-18 23:58] LABS: Albumin Globulin Ratio 0.8 (0.9-2); Alkaline Phosphatase 63 U/L (45-117); Creatine Kinase 145 U/L (39-308); Globulin 3.8 gm/dl (2.5-4.0); Troponin I < 0.015 ng/ml (0-0.045)
[2019-12-19 01:01] LABS: Appearance Urine Clear (Clear); Bacteria Urine Automated Negative (Negative); Bilirubin Urine Negative (Negative); Blood Urine Trace (Negative); Color Urine Dark Yellow; Glucose Urine UA Negative (Negative); Ketones Urine 1+ (Negative); Leukocyte Esterase Urine Trace (Negative); Nitrite Urine Negative (Negative); Protein Urine Trace (Negative); Specific Gravity Urine 1.024 (1.000-1.030); Urobilinogen Urine Positive (Negative); pH Urine 6.5 (4.5-7.5)
--- NOTE | 2019-12-19 01:25 | Emergency Department Note ---
ED Visit Note I have seen and examined this patient with Grace Casper and generally agree with the treatment plan as discussed. .
[2019-12-19] MEDS ORDERED: PNEUMOCOCCAL POLYSACCHARIDES 25 MCG/0.5 ML VIAL/SYR IM ONE (02:22)
[2019-12-19] MEDS ORDERED: PNEUMOCOCCAL ADMINISTRATION CHARGE ONE (02:22)
[2019-12-19] MEDS ORDERED: ONDANSETRON INJ 2 MG/ML 2 ML VIAL IV PRN (03:22)
[2019-12-19] MEDS ORDERED: ACETAMINOPHEN 325 MG TAB PO PRN (03:22)
[2019-12-19] MEDS ORDERED: POLYETHYLENE (MIRALAX) 17 GM PACK PO PRN (03:22)
[2019-12-19] MEDS ORDERED: NITROGLYCERIN SL 0.4 MG/TAB TAB SL PRN (03:22)
--- NOTE | 2019-12-19 05:20 | History and Physical Report ---
DATE OF ADMISSION: 12/19/2019 CHIEF COMPLAINT: Frequent falls. HISTORY OF PRESENT ILLNESS: This is a 74-year-old male with past medical history significant for atrial premature beats, hypertension, history of dementia, anemia, rheumatoid arthritis, depression, history of prostate cancer, history of hemorrhagic stroke with some left-sided weakness, pulmonary nodules. Lives with his . Ambulates with a walker, was brought in because of frequent falls. The patient was here in the ER last Monday with a fall and left sided facial abrasions and CAT scan imaging studies shows left orbital floor fracture. At that time, oral maxillary surgery service was called and to follow as outpatient and was discharged to home on po abx., But at home ahe was falling frequently and he seems to be little more confused. As per the , he watches TV, Maltese channel which he does not known the language, seemed to be staring and somewhat more confused, generally he is otherwise alert and oriented. His appetite is okay, swallows okay. No fever, no chills, no runny nose, no sore throat, no cough, no chest pain, no shortness of breath, no abdominal pain, no back pain, no headaches. The patient answers simple questions, somewhat hard of hearing. Obeys simple commands, has a bruise on the left side of his face. The patient has history of salazar, the is worried of anymore strokes and plan was to admit to the hospital for workup for stroke, and PT, OT and plan for rehabilitation placement. ALLERGIES: No known drug allergies. PAST MEDICAL HISTORY: As mentioned above. PAST SURGICAL HISTORY: Colonoscopy, EGDs, lumbar hemilaminectomy, radical prostatectomy, reconstruction of the left shoulder joint, total hip replacement. MEDICATIONS: The patient is on amoxicillin 875 mg p.o. b.i.d. for 7 days, atorvastatin 10 mg p.o. at bedtime, cetirizine 10 mg p.o. a.m., folic acid 2 mg p.o. at bedtime, lisinopril/hydrochlorothiazide 25/12.5 1 tablet daily, methotrexate 20 mg p.o. Mondays, prednisone 5 mg p.o. daily, trazodone 150 mg p.o. at bedtime, venlafaxine 37.5 mg p.o. daily. FAMILY HISTORY: Significant for daughter has breast cancer. Mother had breast cancer. Sister has colon cancer. SOCIAL HISTORY: and lives with his . Former smoker, quit in 1984, smoked for 40 years. No alcohol use, no drug use. REVIEW OF SYMPTOMS: As per HPI. Rest of review of symptoms the patient has been somewhat hard hearing and questionable confusion. PHYSICAL EXAMINATION: GENERAL: The patient is alert and awake, obeys commands. VITAL SIGNS: Temperature 36.3, pulse 88, respiratory rate 24, blood pressure 123/72, oxygen 97%. HEENT: No pallor, no icterus. Pupils equal, round, reactive to light. NECK: No JVD. No neck mass. No carotid bruits. CARDIOVASCULAR: S1, S2 heard, regular rate and rhythm, no murmur, no gallop. RESPIRATORY SYSTEM: Normal AP diameter. No accessory muscle use. No wheezing, no crackles. ABDOMEN: Soft, bowel sounds present, nontender. No distention. CENTRAL NERVOUS SYSTEM: hard of hearing obeys commands, alert and awake. Strength is good in all extremities. Able to do alternative movements with upper extremities.Moves extremities LABORATORY DATA: WBC 9, hemoglobin 14.9, hematocrit 43.9, platelets 187. Sodium 137, potassium 3.4, chloride 102, bicarbonate 27, BUN 17, creatinine 0.9, serum glucose 90, calcium 9.2, magnesium 2.1, total bilirubin 1, AST 23, ALT 22, alkaline phosphatase 63, total creatinine kinase 145. Troponin I less than 0.015. TSH 1.6. Urinalysis, trace leukocyte esterase positive. Chest x-ray, bibasilar atelectasis, no acute findings. CT of the head no acute findings. EKG: Sinus rhythm with PVCs at a rate of 97, nonspecific ST abnormalities seen. No acute ST changes seen. ASSESSMENT AND PLAN: A 74-year-old male who presents with falls at home. 1. Frequent falls, questionable confusion. The patient history of hemorrhagic CVA in 2017 mild residual left sided weakness, but is able to ambulate okay, but lately falling frequently. He was here on Monday with fall with left orbital fracture, is on antibiotics, amoxicillin (now changed to augmentin)875 mg b.i.d. for 7 days.Because of history of stroke, and also somewhat confused at home, seems to be not his usual self, so was worried about stroke, so we will get an MRI scan while patient is in the hospital. PT and OT and social service to help with discharge planning, patient may need possible placement. 2. History of questionable aspiration. said the patient is not able to eat some of the food, he gets choked, so we will keep him on clear liquid diet and get speech evaluation in a.m. 3. Hypertension: Continue lisinopril/hydrochlorothiazide. Will monitor his blood pressure. 4. History of rheumatoid arthritis on methotrexate, prednisone. 5. Hyperlipidemia: On statin. 6. Dementia: Monitor for any delirium. 7. History of prostate cancer with prostatectomy. 8. Deep venous thrombosis prophylaxis, sequential compression devices for now. 9. Disposition: Close monitoring in med/surg tele. Level 1 full code as per my discussion with . PT and OT prior to discharge. Social Service to help with discharge planning. KAE
[2019-12-19] MEDS ORDERED: GADOBUTROL 65ML VIAL IV PRN (05:36)
[2019-12-19] MEDS: SODIUM CHLORIDE 0.9% 1000ML 1,000 ML IV SCH ×2 (05:51→21:18)
--- NOTE | 2019-12-19 06:28 | CT Scan Report ---
CT head/brain wo con CLINICAL HISTORY: 74 years-old Male with weak, can't walk. Acute weakness TECHNIQUE: Multiple axial CT images of the head were obtained without contrast. A dose lowering tech nique was utilized adhering to the principles of ALARA. CT DOSE: 614.27 mGy.cm COMPARISON: Head CT 12/16/2019, brain MRI 12/19/2019 FINDINGS: No acute intracranial hemorrhage, midline shift, intracranial mass, hydrocephalus, territorial ischem ia or abnormal extra-axial collection. Age-related involutional changes with ex vacuo ventriculomegal y. Extensive patchy white matter hypodensities compatible with chronic microvascular ischemic disease . Cerebral vascular calcifications also noted. The calvarium is intact. Large right mastoid effusion. Left mastoid air cells are clear. Mild polypo id mucosal thickening of the maxillary sinuses. The right sphenoid sinuses almost complete opacified containing dense central secretions. Soft tissues are unremarkable. Orbits are within normal limits. IMPRESSION: No acute intracranial abnormality identified. ACT 112: Negative or not required by law. The above report was generated using voice recognition software. It may contain grammatical, syntax o r spelling errors. Electronically signed by: Oskar Mendes M.D. 12/19/2019 6:26 AM
--- NOTE | 2019-12-19 07:06 | Magnetic Resonance Report ---
MRI OF THE BRAIN WITHOUT AND WITH IV CONTRAST CLINICAL HISTORY: frequent falls, confusion? hx of cva REMOTE HISTORY OF PROSTATE CARCINOMA COMPARISON STUDY: Noncontrast head CT dated 12/18/2019 TECHNIQUE: MRI of the brain was performed from the vertex to the skull base utilizing various T1 and T2 weighted sequences. Following the IV administration of 8.5 mL of Gadavist contrast, additional enh anced images were obtained. FINDINGS: Sagittal T1, axial diffusion, proton density and T2 weighted axial, coronal FLAIR, and pre and post a xial T1-weighted images were acquired. These were supplemented with post gadolinium coronal T1 weight ed images. The examination is significantly degraded due to motion artifact. No intra or extra-axial mass lesions are visualized. There are suspected tiny areas of restricted water diffusion within the right frontoparietal subarach noid space near the vertex There is no evidence of ventricular dilatation. Proton density T2-weighted and FLAIR images reveal extensive foci of increased T2 signal within the w lynda matter, likely on a small vessel basis. There is an old infarct involving the right external cap tiffany. There are old small lacunar infarcts involving the thalamus and basal ganglia. There are no abnormal flow voids. There is a right mastoid effusion. There is abnormal postcontrast pachymeningeal enhancement most pronounced over the convexities. IMPRESSION: 1. Unexplained pachymeningeal enhancement most pronounced over the convexities. This has a wide diffe rential diagnosis including infection, metastatic disease, neurosarcoid, cerebral venous thrombosis, as well as additional etiologies. Clinical correlation is recommended. A lumbar puncture might be con sidered in follow-up. 2. Suspected tiny areas of restricted water diffusion within the right frontoparietal subarachnoid sp abdirahman 3. Extensive white matter disease and old lacunar infarcts 4. Right mastoid effusion. ACT 112: Negative or not required by law. Electronically signed by: Tahir Adrian M.D. 12/19/2019 7:05 AM
--- NOTE | 2019-12-19 07:09 | XRay Report ---
XR chest 1V portable CLINICAL HISTORY: 74 years-old Male presenting with weakness. TECHNIQUE: Portable upright AP view of the chest was obtained. COMPARISON: 04/05/2019. FINDINGS: The patient is slightly VALDO rotated. Atherosclerosis of the aortic arch. Cardiac silhouette enlarged. Exaggerated thoracic kyphosis suspected limiting evaluation. Mildly low lung volumes. The prior righ t basilar nodule is not appreciable on this exam. Minimal basilar opacities. No pleural effusion or p neumothorax. Old anterolateral left rib fractures suspected. Underlying osteopenia may be present. IMPRESSION: 1. Positioning and exaggerated thoracic kyphosis limits evaluation. 2. Low lung volumes with hypoventilatory changes. Minimal basilar opacities likely atelectasis/scarr ing or less likely aspiration. 3. Suspected cardiomegaly. ACT 112: Negative or not required by law. Electronically signed by: Brian Mar M.D. 12/19/2019 7:08 AM
[2019-12-19] MEDS ORDERED: OPTIRAY 320 125ml IV PRN (08:36)
--- NOTE | 2019-12-19 08:55 | CT Scan Report ---
CT angio head w con CLINICAL HISTORY: 74 years-old Male with MRI findings. connfusion, falls. Acute confusion with fal l COMPARISON STUDY: Brain MRI 12/19/2019, head CT 12/18/2019 TECHNIQUE: Following the IV administration of 120 cc of Optiray 320, CT angiogram of the brain was pe rformed from the skull base to the vertex. Images are reviewed in the axial, sagittal, and coronal pl anes. 3-D MIPS images are created and assessed. IV contrast was administered without complication. Al l measurements were obtained according to NASCET criteria. A dose lowering technique was utilized adh ering to the principles of ALARA. CT DOSE: 658.52 mGy.cm FINDINGS: CT ANGIOGRAM OF THE BRAIN: The imaged bilateral internal carotid arteries are patent. Diminutive right A1 segment is likely deve lopmental. The middle and anterior cerebral arteries are patent. The imaged vertebral arteries also a ppear patent. Diminutive and patent basilar artery with origin of the bilateral posterior cereb ral arteries. No aneurysm, dissection, high-grade stenosis or proximal branch occlusion. Cerebral misael ous sinuses appear patent. The previously described dural/subarachnoid enhancement seen on comparison MRI is not appreciated by CT technique. There is mild multifocal luminal narrowing of the intracrani al arterial structures, predominantly within the branches of the middle and posterior cerebral arteri es without high-grade narrowing. No abnormal intra-axial enhancement. Incidental note is made of mild polypoid mucosal thickening of the left maxillary sinus with addition al mucosal thickening of the ethmoid air cells and right sphenoid sinus. No acute calvarial fracture. Indeterminate 8 mm lucent focus of the right parietal calvarium. IMPRESSION: Unremarkable CTA without aneurysm, dissection, high-grade stenosis or proximal branch occ lusion. ACT 112: Negative or not required by law. The above report was generated using voice recognition software. It may contain grammatical, syntax o r spelling errors. Electronically signed by: Oskar Mendes M.D. 12/19/2019 8:54 AM
--- NOTE | 2019-12-19 09:00 | CT Scan Report ---
CT angio neck with con CLINICAL HISTORY: Confusion. Possible acute stroke. COMPARISON STUDY: No previous studies for comparison. TECHNIQUE: CT angiography was performed from the aortic arch to the skull base. MIP imaging was perfo rmed. The patient was scanned in a dynamic helical fashion during intravenous administration of 120 c c of Optiray 320. A dose lowering technique was utilized adhering to the principles of ALARA. CT DOSE: Technique: CT angiogram of the carotid and vertebral arteries was obtained using intravenous contrast and 3-D reconstruction. NASCET criteria was utilized. Findings: The right carotid revealed no evidence of aneurysm and no evidence of dissection. There is no evidenc e of hemodynamic significant stenosis. The left carotid revealed no evidence of hemodynamic significant stenosis. There is no evidence of an eurysm. There is no evidence of dissection. There is no evidence of hemodynamically significant right vertebral artery stenosis. There are severa l moderate left vertebral artery stenoses secondary to facet joint arthropathy. These measure up to 6 0% diameter narrowing, and are most pronounced at the C3 3-4 levels and C5-C6 levels. IMPRESSION: 1. No evidence of hemodynamically significant carotid artery stenosis 2. Areas of moderate left vertebral artery narrowing secondary to facet joint arthropathy ACT 112: Negative or not required by law. Electronically signed by: Tahir Adrian M.D. 12/19/2019 8:59 AM
[2019-12-19] MEDS ORDERED: POTASSIUM CHLORIDE 20 MEQ TABCR PO STA (09:03)
[2019-12-19] MEDS: CETIRIZINE HCL 10 MG TABLET PO SCH (09:36)
[2019-12-19] MEDS: predniSONE 5 MG TAB PO SCH (09:36)
[2019-12-19] MEDS: VENLAFAXINE HCL XR 37.5 MG CAPXR PO SCH (09:37)
[2019-12-19] MEDS: LISINOPRIL/HCTZ 20/12.5MG 1 TAB TAB PO SCH (09:37)
[2019-12-19] MEDS: AMOXICILLIN/CLAVULANATE 875 MG TAB PO SCH ×2 (09:37→17:51)
[2019-12-19] MEDS ORDERED: POTASSIUM CHLORIDE 20 MEQ TABCR PO ONE (12:00)
[2019-12-19 13:07] LABS: BUN Creatinine Ratio 19.2 (10-20); Calcium 8.8 mg/dl (8.5-10.1); Creatinine Clr Calc Pharmacy 80.1 ml/min; Est GFR (African American) 100.1; Est GFR (Non-African American) 86.3; Magnesium 2.3 mg/dl (1.8-2.4); Phosphorus 2.8 mg/dl (2.5-4.9); Potassium 3.9 mmol/L (3.5-5.1)
--- NOTE | 2019-12-19 14:15 | Neurology Consultation ---
Date of Consultation December 19, 2019 Assessment & Plan (1) Ambulatory dysfunction: 1. MRI brain- pachymeningeal enhancement- known findings-MRI brain pushed to [facility] [place] [facility] 2. LP - done [facility] 05/16/2019 no need to repeat 3. PT/OT for discharge needs 4. currently incontinent unclear if this is new 5. orbit fracture- on antibiotics 6. UTI- treat to culture- current incontinence 7. 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 (2) Weakness: (3) Dementia: Supervising Physician Co-Signing Physician Notes Patient was seen and examined. No family at bedside. Epic chart reviewed from [facility]. Noted to have frequent falls and ataxic gait by PCP. MRI showed pachymeningeal enhancement. Then seen in neurology clinic. LP was arranged. PAraneoplastic panel was Negative. CSF protein was mildly elevated with 7 WBCs. Lyme was Negative. Flow cytometry was inconclusive. Referred to [facility] for consideration of biopsy. 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 Patient scheduled to follow up with NSG in 1-year with repeat MRI brain. On examine patient is awake and comprehension is intact. Mild dysarthria. Following simple commands. Trouble sitting in bed upright. No asterixis or ataxia with finger to nose. Has contracture in left hand due to prior stroke. 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 MRI reviewed and consistent with previous Imaging. Will defer on repeat LP at this time. Recommend PT/OT for rehab needs. Please call with any further questions or concerns. History of Present Illness Reason for Consultation: frequent falls, confusion?, MRI:Unexplained pachym Requesting Physician: Romulo Domínguez MD Attending Physician: Romulo Domínguez MD History of Present Illness Samy is a 74 year old male with PMH atrial premature beats, HTN, dementia, anemia, RA, depression, prostrate CA, hemorrhagic stroke with some left-sided weakness, pulmonary nodules. He uses a walker for ambulation most of the time. He was brought to the ED for frequent falls. He was at [facility] 12/16/2019 for a fall and left sided facial abrasions and CAT scan imaging studies shows left orbital floor fracture. Oral maxillary surgery service he was told to follow up as an outpatient. He was discharge home on antibiotics. On return home he was falling more than usual and more confused. He watches TV, Palauan channel which he does not known Palauan. He is found staring and more confused. He is currently lying in bed and answer some questions appropriately. He has also been incontinent of urine. denies CP, SOB, abdominal pain, known left sided weakness, vision changes, +incontinence, confusion, CHILKOOT Allergies Allergy/AdvReac Type Severity Reaction Status Date / Time No Known Allergies Allergy NONE Verified 12/16/19 10:32 Home Medications Home Medications Medication Instructions Recorded Confirmed Type folic acid 2 mg PO HS 07/03/18 12/18/19 History lisinopril-hydrochlorothiazide 1 tab PO QAM 07/03/18 12/18/19 History methotrexate sodium 20 mg PO MO 07/03/18 12/18/19 History trazodone 150 mg PO HS 07/03/18 12/18/19 History atorvastatin 10 mg PO HS 04/05/19 12/18/19 History amoxicillin 875 mg PO BID 7 Days #14 tab 12/16/19 12/18/19 Rx cetirizine [Zyrtec] 10 mg PO QAM 12/16/19 12/18/19 History venlafaxine 37.5 mg PO QAM 12/16/19 12/18/19 History prednisone 5 mg PO DAILY 12/19/19 12/19/19 History Patient History Medical History Anemia Anxiety Depression Hearing deficit Hypertension Prostate CA 1999--SX, NO CHEMO/RADIATION Rheumatoid arthritis Stroke 05/2017--LEFT SIDE WEAKNESS Surgical History H/O abdominal surgery 05/2017--FEEDING TUBE PLACED THEN REMOVED (07/2017) H/O prostate biopsy 1999--MALIGNANT H/O prostatectomy 1999 [place] [facility] [place] History of appendectomy History of arthroscopy of left shoulder History of colonoscopy History of left hip replacement History of lumbar fusion X2---NORMAL ROM History of right hip replacement History of tonsillectomy Family History Sister Family hx of colon cancer Social History Preferred Language: Sinhala Communication Ability: Effective Intelligence Engineer Required: No Beliefs That Will Affect Care: None marital status: Current Living Situation: Spouse current occupational status: employed Feels Safe at Home: Yes Smoking Status: Former smoker Tobacco Type: cigarettes ; Second Hand Exposure: No ; Hx Alcohol Use: No Hx Substance Use: No Physical Exam Physical Exam: Physical Exam: Constitutional: appearance nourished, healthy alert, incontinent of urine Ears, Nose, Mouth and Throat: mucous membranes moist, no injection and skin normal, eyes normal Cardiovascular: normal S-1 and S-2 and regular rate and rhythm Respiratory: course breath sounds Musculoskeletal: no peripheral edema , contracture of left hand Skin: multiple areas of bruising with different levels of healing Eyes: extraocular muscles intact (EOMI) and pupils equal, round and reactive to light (PERRL) NEUROLOGIC EXAMINATION: Mental status: Alert and interactive Oriented to [facility], thinks it is 2011 then says -December Oriented to person Speech fluent with no evidence of aphasia Cranial Nerves left nasolabial fold flattening Reflexes: Deep tendon reflexes were symmetrical and graded 2/5. 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 plant ar flex ext right 5/5, left 4+/5 Results & Data Vital Signs (Past 12 Hours) Vital Signs Temp Pulse Pulse Resp BP BP BP 12/19/19 07:48 36.3 C L 69 18 133/84 12/19/19 04:56 72 12/19/19 03:32 36.9 C 80 156/90 H 12/19/19 02:56 80 19 139/90 12/19/19 02:26 80 15 130/81 Pulse Ox 12/19/19 07:48 93 12/19/19 04:56 12/19/19 03:32 92 12/19/19 02:56 95 12/19/19 02:26 97 Laboratory Results Abnormal lab results 12/18/19 12/18/19 12/19/19 Range/Units 23:13 23:13 12:13 RDW Std Deviation 51.1 H (36.4-46.3) fL RDW Coeff of Monserrat 15.3 H (11.5-14.5) % Neut # (Auto) 6.72 H (1.4-6.5) K/uL Lymph # (Auto) 1.08 L (1.2-3.4) K/uL [place] # (Auto) 1.05 H (0.11-0.59) K/uL Potassium 3.4 L (3.5-5.1) mmol/L Glucose 104 H (70-99) mg/dl Albumin 3.2 L (3.4-5.0) gm/dl Albumin/Globulin Ratio 0.8 L (0.9-2) Urine Protein (Negative) Urine Ketones (Negative) Urine Blood (Negative) Urine Urobilinogen (Negative) Ur Leukocyte Esterase (Negative) Urine RBC (Auto) (0-4) /hpf U Hyaline Cast (Auto) (0-5) /lpf U Epithel Cells (Auto) (0-5) /lpf 12/19/19 Range/Units Unknown RDW Std Deviation (36.4-46.3) fL RDW Coeff of Monserrat (11.5-14.5) % Neut # (Auto) (1.4-6.5) K/uL Lymph # (Auto) (1.2-3.4) K/uL [place] # (Auto) (0.11-0.59) K/uL Potassium (3.5-5.1) mmol/L Glucose (70-99) mg/dl Albumin (3.4-5.0) gm/dl Albumin/Globulin Ratio (0.9-2) Urine Protein Trace H (Negative) Urine Ketones 1+ H (Negative) Urine Blood Trace H (Negative) Urine Urobilinogen Positive H (Negative) Ur Leukocyte Esterase Trace H (Negative) Urine RBC (Auto) 10-30 H (0-4) /hpf U Hyaline Cast (Auto) 10-30 H (0-5) /lpf U Epithel Cells (Auto) 10-20 H (0-5) /lpf Diagnostic Findings CXR- Positioning and exaggerated thoracic kyphosis limits evaluation. Low lung volumes with hypoventilatory changes. Minimal basilar opacities likely atelectasis/scarring or less likely aspiration. Suspected cardiomegaly. CT head-No acute intracranial abnormality identified. MRI brain-. Unexplained pachymeningeal enhancement most pronounced over the convexities. This has a wide differential diagnosis including infection, metastatic disease, neurosarcoid, cerebral venous thrombosis, as well as additional etiologies. Clinical correlation is recommended. A lumbar puncture might be considered in follow-up. Suspected tiny areas of restricted water diffusion within the right frontoparietal subarachnoid space Extensive white matter disease and old lacunar infarcts Right mastoid effusion. CTA neck- No evidence of hemodynamically significant carotid artery stenosis Areas of moderate left vertebral artery narrowing secondary to facet joint arthropathy CTA head-Unremarkable CTA without aneurysm, dissection, high-grade stenosis or proximal branch occlusion.
[2019-12-19] MEDS: METOPROLOL TARTRATE 25 MG TAB PO SCH ×2 (15:59→22:01)
--- NOTE | 2019-12-19 16:11 | Electrocardiogram Report ---
Test Reason : Blood Pressure : / mmHG Vent. Rate : 097 BPM Atrial Rate : 097 BPM P-R Int : 140 ms QRS Dur : 082 ms QT Int : 372 ms P-R-T Axes : 060 -35 034 degrees QTc Int : 472 ms Poor data quality, interpretation may be adversely affected Sinus rhythm with frequent Premature ventricular complexes Left axis deviation Minor Nonspecific ST abnormality Anterolateral leads Abnormal ECG When compared with ECG of 16-DEC-2019 10:44, Premature ventricular complexes are now Present Otherwise no significant change Confirmed by Faizan Newman ([id number]) on 12/19/2019 4:11:10 PM Referred By: REFERRED SELF Confirmed By:Faizan Newman
[2019-12-19] MEDS ORDERED: MICONAZOLE NITRATE POWDER 43 GM EXT PRN (18:48)
[2019-12-19] MEDS: TRAZODONE HCL 50 MG TAB PO SCH (22:01)
[2019-12-19] MEDS: FOLIC ACID 1 MG TAB PO SCH (22:02)
[2019-12-19] MEDS: ATORVASTATIN 10 MG TAB PO SCH (22:02)
[2019-12-20 05:58] LABS: Basophils # (auto) 0.05 K/uL (0-0.2); Basophils % (auto) 0.6 %; Eosinophils # (auto) 0.29 K/uL (0-0.5); Eosinophils % (auto) 3.3 %; Hematocrit (blood only) 40.4 % (42-52); Hemoglobin 14.2 g/dL (14.0-18.0); Immature Granulocytes # (auto) 0.04 K/uL (0.00-0.02); Immature Granulocytes % (auto) 0.5 %; Lymphocytes # (auto) 0.94 K/uL (1.2-3.4); Lymphocytes % (auto) 10.8 %; Mean Corpuscular Hemoglobin 31.8 pg (25-34); Mean Corpuscular Hgb Conc 35.1 g/dL (32-36); Mean Corpuscular Volume 90.4 fL (80-100); Mean Platelet Volume 10.1 fL (7.4-10.4); Monocytes # (auto) 0.89 K/uL (0.11-0.59); Monocytes % (auto) 10.2 %; Neutrophils % (auto) 74.6 %; Platelet Count 162 K/uL (130-400); RDW Coefficient of Variation 14.9 % (11.5-14.5); RDW Standard Deviation 48.7 fL (36.4-46.3); Red Blood Count 4.47 M/uL (4.7-6.1); White Blood Count 8.71 K/uL (4.8-10.8)
[2019-12-20 06:31] LABS: BUN Creatinine Ratio 19.1 (10-20); Calcium 8.6 mg/dl (8.5-10.1); Creatinine Clr Calc Pharmacy 88.9 ml/min; Est GFR (African American) 104.4; Est GFR (Non-African American) 90.1; Potassium 3.7 mmol/L (3.5-5.1)
[2019-12-20] MEDS: AMOXICILLIN/CLAVULANATE 875 MG TAB PO SCH ×2 (07:33→17:53)
[2019-12-20] MEDS: VENLAFAXINE HCL XR 37.5 MG CAPXR PO SCH (08:00)
[2019-12-20] MEDS: LISINOPRIL/HCTZ 20/12.5MG 1 TAB TAB PO SCH (08:01)
[2019-12-20] MEDS: predniSONE 5 MG TAB PO SCH (08:01)
[2019-12-20] MEDS: METOPROLOL TARTRATE 25 MG TAB PO SCH ×2 (08:01→23:41)
[2019-12-20] MEDS: CETIRIZINE HCL 10 MG TABLET PO SCH (08:01)
[2019-12-20] MEDS ORDERED: POTASSIUM CHLORIDE 20 MEQ TABCR PO STA (08:36)
[2019-12-20] MEDS: SODIUM CHLORIDE 0.9% 1000ML 1,000 ML IV SCH ×2 (10:17→23:43)
[2019-12-20] MEDS: FOLIC ACID 1 MG TAB PO SCH (23:41)
[2019-12-20] MEDS: ATORVASTATIN 10 MG TAB PO SCH (23:41)
[2019-12-20] MEDS: TRAZODONE HCL 50 MG TAB PO SCH (23:41)
[2019-12-21] MEDS: METOPROLOL TARTRATE 25 MG TAB PO SCH ×2 (08:57→21:11)
[2019-12-21] MEDS: AMOXICILLIN/CLAVULANATE 875 MG TAB PO SCH ×2 (08:57→16:30)
[2019-12-21] MEDS: predniSONE 5 MG TAB PO SCH (08:58)
[2019-12-21] MEDS: VENLAFAXINE HCL XR 37.5 MG CAPXR PO SCH (08:58)
[2019-12-21] MEDS: CETIRIZINE HCL 10 MG TABLET PO SCH (08:59)
[2019-12-21] MEDS: LISINOPRIL/HCTZ 20/12.5MG 1 TAB TAB PO SCH (09:00)
--- NOTE | 2019-12-21 10:19 | Hospitalist Progress Note ---
Date of Service December 20, 2019 Assessment & Plan (1) Fall: (2) Ambulatory dysfunction: A 74-year-old male who presents with falls at home. Frequent falls, questionable confusion. 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 He was here on Monday with fall with left orbital fracture, is on antibiotics, amoxicillin (now changed to augmentin) 875 mg b.i.d. for 7 days. - because of history of stroke, and also somewhat confused at home,family concerned about poss. 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 - plan for inpt rehab (3) Dementia: - likely component of vasc. dementia given hx of prior strokes - cont. to monitor for delirium, re-orient the pt as needed (4) Fracture of inferior orbital wall: - continue antibiotics, Augmentin, 875 mg b.i.d. for 7 days - no surg. intervention required Episode of NSVT after working with PT on 12/18 - Echo recently obtained and cardiology eval done by Dr. Bhatia (09/2019) - Echo essentially normal - pt was mildly hypokalemic and electrolytes were replaced - started pt on metoprolol 12.5 BID , cont. to monitor on tele, no further episodes noted Rheumatoid arthritis on methotrexate, prednisone. Hypertension: Continue lisinopril/hydrochlorothiazide. Will monitor his blood pressure. Hyperlipidemia: cont. statin CodeL Full Dispo: likely inpt rehab/ ECF Admission and Anticipated Discharge Date Admission Date: December 19, 2019 Subjective Reported per nursing staff that pt confused early this AM, wiping feces on bed. Currently on my exam pt is lying in bed, calm, answers questions appropriately. Pt's daughter is present at the bedside. Pt can name his family members and can tell me where they live. He says it's year 2011, ans November for . He knows Mr. Israel is the current president. Sometimes he seems to be hesitant in his answers. Daughter reports that he was told previously several times to make sure he drinks plenty of fluids but he seems to not do that. Orthostatic VS obtained and negative (however pt has been on IVF). Denies any fever, chills, chest pain, shortness of breath, headache, dizziness, lightheadedness, abd. pain, nausea or vomiting. Review of Systems Review of Systems: All systems reviewed & are unremarkable except as noted in HPI & below Constitutional: + weakness (generalized); no fever and no chills Respiratory: no cough and no dyspnea Cardiovascular: no chest pain and no palpitations Gastrointestinal: no abdominal pain, no nausea and no vomiting Physical Exam Physical Exam: GENERAL: The patient is alert and awake, obeys commands, answers questions appropriately HEENT: No pallor, no icterus. Pupils equal, round, reactive to light. EOMI, ecchymosis of left upper face/orbit NECK: No JVD. No neck mass. No carotid bruits. CARDIOVASCULAR: S1, S2 heard, regular rate and rhythm, no murmur, no gallop. RESPIRATORY SYSTEM: Normal AP diameter. No accessory muscle use. No wheezing, no crackles. ABDOMEN: Soft, bowel sounds present, nontender. No distention. CENTRAL NERVOUS SYSTEM: hard of hearing obeys commands, alert and awake, answers most questions appropriately, moves extremities spontaneously Results & Data ([facility]) Vital Signs (Past 12 Hours) Vital Signs Temp Pulse Pulse Resp BP BP Pulse Ox 12/21/19 08:00 37.1 C 74 20 121/74 96 12/21/19 03:18 36.7 C 97 H 20 150/92 H 90 12/20/19 23:39 37.1 C 95 H 18 128/69 96 12/20/19 22:46 93 H Laboratory Results reviewed Medications Administered reviewed (1) Fracture of inferior orbital wall Encounter type: initial encounter Fracture type: open Laterality: left Qualified Code(s): S02.32XB - Fracture of orbital floor, left side, initial encounter for open fracture (2) Fall Encounter type: initial encounter Qualified Code(s): W19.XXXA - Unspecified fall, initial encounter
[2019-12-21] MEDS ORDERED: POTASSIUM CHLORIDE 20 MEQ TABCR PO STA (12:33)
[2019-12-21] MEDS: SODIUM CHLORIDE 0.9% 1000ML 1,000 ML IV SCH (13:25)
[2019-12-21 15:30] LABS: Hematocrit (blood only) 42.2 % (42-52); Hemoglobin 14.5 g/dL (14.0-18.0); Mean Corpuscular Hemoglobin 30.6 pg (25-34); Mean Corpuscular Hgb Conc 34.4 g/dL (32-36); Mean Platelet Volume 10.6 fL (7.4-10.4); Platelet Count 170 K/uL (130-400); RDW Standard Deviation 48.3 fL (36.4-46.3); Red Blood Count 4.74 M/uL (4.7-6.1); White Blood Count 8.95 K/uL (4.8-10.8)
[2019-12-21 15:35] LABS: Allen Test Pos (Pos); Base Excess ABG 0.4 mEq/L (-9-1.8); HCO3 ABG 23 mmol/L (19-24); Oxygen Saturation ABG 95.7 % (90-95); PCO2 ABG 32 mmHg (35-46); PO2 ABG 72 mmHg (80-95); pH ABG 7.48 (7.35-7.45)
[2019-12-21 15:45] LABS: BUN Creatinine Ratio 11.6 (10-20); Blood Urea Nitrogen 11 mg/dl (7-18); Calcium 8.4 mg/dl (8.5-10.1); Carbon Dioxide 25 mmol/L (21-32); Chloride 104 mmol/L (98-107); Creatinine Clr Calc Pharmacy 70.5 ml/min; Est GFR (African American) 93.3; Est GFR (Non-African American) 80.5; Glucose 106 mg/dl (70-99); Potassium 3.4 mmol/L (3.5-5.1); Sodium 135 mmol/L (136-145)
[2019-12-21] MEDS ORDERED: PIPERACILL/TAZOBAC CONSULT ACTIVE PRN (16:32)
[2019-12-21] MEDS ORDERED: PIPERACILLIN/TAZOBACTAM 4.5 GM in DEXTROSE 5% 100 ML IV STA (16:46)
[2019-12-21 17:33] LABS: Troponin I < 0.015 ng/ml (0-0.045)
[2019-12-21] MEDS ORDERED: OPTIRAY 320 125ml IV PRN (17:43)
--- NOTE | 2019-12-21 17:55 | CT Scan Report ---
CT head/brain wo con CT DOSE: 1104.67 mGy.cm HISTORY: Mental status change Altered mental status TECHNIQUE: Multiaxial CT images of the head were performed without the use of intravenous contrast. A dose lowering technique was utilized adhering to the principles of ALARA. Comparison: 12/19/2019 Findings: The paranasal sinuses and mastoid air cells are clear. The calvarium and skull base are int act. The ventricles and sulci are within normal limits. There is no mass, hematoma, midline shift, or acute infarct. Age-related atrophy and chronic small vessel change. Slight increase in density right external capsule considered chronic and unchanged compared to a study of 2007 Impression: No acute intracranial abnormality. Age-related chronic small vessel change and atrophy. ACT 112: Negative or not required by law. The above report was generated using voice recognition software. It may contain grammatical, syntax or spelling errors. Electronically signed by: Cirilo Landeros M.D. 12/21/2019 5:53 PM
[2019-12-21] MEDS: POTASSIUM CHLORIDE / WTR 10 MEQ/100 ML PLCT IV SCH ×3 (17:58→19:43)
--- NOTE | 2019-12-21 17:58 | CT Scan Report ---
CT angio chest PE protocol CT DOSE: HISTORY: rule out PE/ poss. pneumia/pneumonitis TECHNIQUE: Multiaxial CT images of the chest were performed following the intravenous administration of contrast to evaluate the pulmonary arteries. Maximal intensity projection images were also obtaine d. A dose lowering technique was utilized adhering to the principles of ALARA. COMPARISON STUDY: None. FINDINGS: Moderate atherosclerotic change thoracic aorta. Pulmonary vasculature enhances appropriately. No major filling defects. Evaluation of the lung parenchyma demonstrates a parenchymal infiltrate involving the posterior aspec t left upper lobe. There are scattered nodular densities of the right hemithorax measuring up to 9 mm . There is minimal dependent basilar atelectasis. IMPRESSION: 1. No evidence for pulmonary embolus. 2. Focal left upper lobe parenchymal infiltrate. 3. 2 nodular densities of the right hemithorax measuring up to 9 mm. This should be followed on a rou ekaterina basis at a 3-4 month timeframe. ACT 112: Negative or not required by law. The above report was generated using voice recognition software. It may contain grammatical, syntax or spelling errors. Electronically signed by: Cirilo Landeros M.D. 12/21/2019 5:56 PM
[2019-12-21] MEDS ORDERED: VANCOMYCIN CONSULT ACTIVE PRN (18:37)
[2019-12-21] MEDS ORDERED: VANCOMYCIN HCL 1,750 MG in SODIUM CHLORIDE 0.9% 500 ML IV ONE (19:00)
--- NOTE | 2019-12-21 19:27 | Pharmacy Report ---
Pharmacy Abx Initial Consult - Date of Service December 21, 2019 - Pharmacy Dosing Scope Date of Consult: 12/21/2019 Consultation requested by: Dr. Domínguez Pharmacy is consulted to initiate Vancomycin and Zosyn IV dosing therapy, order appropriate labs and adjust drug dose/frequency. - Subjective The patient is a 74 year old M admitted on 12/19/19 02:08. - Objective Height: 5 ft 10 in Weight: 82.3 kg Vital Signs (Past 12hrs): Vital Signs Temp Pulse Pulse Resp BP Pulse Ox 12/21/19 19:09 36.8 C 61 18 152/92 H 93 12/21/19 18:06 36.8 C 84 20 137/91 95 12/21/19 15:49 37.7 C H 81 20 121/82 92 12/21/19 13:34 78 28 H 100 12/21/19 11:26 36.7 C 79 18 109/70 95 12/21/19 08:00 37.1 C 74 20 121/74 96 Lab Results (24hrs): Laboratory Tests (24 Hours) 12/21/19 12/21/19 15:08 15:08 WBC 8.95 Creatinine 0.92 Est Cr Clr Drug Dosing 70.5 Micro Results: 12/21/19 15:13 Aerobic Blood Culture - Pending Blood Anaerobic Blood Culture - Pending 12/21/19 15:08 Aerobic Blood Culture - Pending Blood Anaerobic Blood Culture - Pending - Risk Factors for Resistance * Antimicrobial use within the last 90 days: * Amoxicillin - Assessment & Plan Assessment 74 year old M admitted on 12/18/2019 for multiple falls recently * Previously in ED on 12/16/2019 secondary to a fall which resulted in left orbital floor fracture * At the time, oral maxillary surgery consulted and recommended patient be discharged with oral abx (Amoxicillin) * Patient returned with increased confusion * Patient was started on Augmentin 875 mg PO BID upon admission (12/18-12/20) * Found to have low grade fever (37.7C) and increased confusion today so decision was made to escalate therapy * Patient has been afebrile minus one reading today of 37.7C, no leukocytosis, normal lactic acid * Renal function appears to be worsening (SCr/eCrCl) 0.73/89--> 0.92/71 * Will follow closely given nephrotoxic regimen of vanc + zosyn Plan Vancomycin and Zosyn for treatment of L orbital floor fracture Vancomycin IV * Patient meets criteria for vancomycin AUC dosing nomogram * AUC/MAXWELL is the preferred PK/PD target for vancomycin * Target AUC/MAXWELL = 400-600 * AUC guided dosing is effective and associated with decreased risk of nephrotoxicity * Will still monitor trough level to ensure AUC/MAXWELL dosing goal achieved Piperacillin/tazobactam * 4.5 g bolus administered over 30 minutes, then 3.375 g IV extended infusion every 8 hours for CrCl greater than 20 mL/min Pharmacy will continue to follow and will adjust dose/frequency as necessary. Thank you.
[2019-12-21] MEDS: FOLIC ACID 1 MG TAB PO SCH (21:11)
[2019-12-21] MEDS: ATORVASTATIN 10 MG TAB PO SCH (21:11)
[2019-12-21] MEDS: TRAZODONE HCL 50 MG TAB PO SCH (21:13)
[2019-12-21] MEDS: PIPERACILLIN/TAZOBACTAM 3.375 GM in DEXTROSE 5% 100 ML IV SCH (23:36)
[2019-12-22 06:30] LABS: Basophils # (auto) 0.02 K/uL (0-0.2); Basophils % (auto) 0.3 %; Eosinophils # (auto) 0.22 K/uL (0-0.5); Eosinophils % (auto) 3.1 %; Hematocrit (blood only) 41.3 % (42-52); Hemoglobin 14.1 g/dL (14.0-18.0); Immature Granulocytes # (auto) 0.03 K/uL (0.00-0.02); Immature Granulocytes % (auto) 0.4 %; Lymphocytes # (auto) 0.67 K/uL (1.2-3.4); Lymphocytes % (auto) 9.4 %; Mean Corpuscular Hemoglobin 30.3 pg (25-34); Mean Corpuscular Hgb Conc 34.1 g/dL (32-36); Mean Corpuscular Volume 88.6 fL (80-100); Mean Platelet Volume 10.3 fL (7.4-10.4); Monocytes # (auto) 1.21 K/uL (0.11-0.59); Monocytes % (auto) 17.1 %; Neutrophils # (auto) 4.94 K/uL (1.4-6.5); Neutrophils % (auto) 69.7 %; Platelet Count 143 K/uL (130-400); RDW Coefficient of Variation 15.2 % (11.5-14.5); RDW Standard Deviation 48.8 fL (36.4-46.3); Red Blood Count 4.66 M/uL (4.7-6.1); White Blood Count 7.09 K/uL (4.8-10.8)
[2019-12-22] MEDS: PIPERACILLIN/TAZOBACTAM 3.375 GM in DEXTROSE 5% 100 ML IV SCH ×3 (06:36→22:00)
--- NOTE | 2019-12-22 06:49 | Hospitalist Progress Note ---
Date of Service December 21, 2019 Assessment & Plan (1) Pneumonia: CAP vs HCAP Left upper lobe pna Pt somnolent, hypoxic on ABG, tachypneic (12/21/2019) CT PE obtained - ruled out PE, however Focal left upper lobe parenchymal infiltrate noted, in addition 2 nodular densities of the right hemithorax measuring up to 9 mm. This should be followed on a routine basis at a 3-4 month timeframe. Pt has been on Augmentin for facial fractures Will switch to IV zosyn and vancomycin Will obtain MRSA swab, and sputum cltx, blood cltx Lactic acid wnl, obtain procalcitonin Cont. to closely monitor Family updated at the bedside CHRIS CPAP at night (2) Fall: (3) Ambulatory dysfunction: A 74-year-old male who presents with falls at home. Frequent falls, questionable confusion. 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 He was here on Monday with fall with left orbital fracture, is on antibiotics, amoxicillin (now changed to augmentin) 875 mg b.i.d. for 7 days. - because of history of stroke, and also somewhat confused at home,family concerned about poss. 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 - plan for inpt rehab (4) Dementia: - likely component of vasc. dementia given hx of prior strokes - cont. to monitor for delirium, re-orient the pt as needed (5) Fracture of inferior orbital wall: - continue antibiotics, Augmentin, 875 mg b.i.d. for 7 days - no surg. intervention required - pt will be switched to IV Abx (as above d/t pna) Episode of NSVT after working with PT on 12/18 - Echo recently obtained and cardiology eval done by Dr. Bhatia (09/2019) - Echo essentially normal - pt was mildly hypokalemic and electrolytes were replaced - started pt on metoprolol 12.5 BID , cont. to monitor on tele, no further episodes noted - discussed w/ Dr. Diamond, if recurrent, consult cardiology Rheumatoid arthritis on methotrexate, prednisone. Hypertension: Continue lisinopril/hydrochlorothiazide. Will monitor his blood pressure. Hyperlipidemia: cont. statin Code: Full Dispo: likely inpt rehab/ ECF Admission and Anticipated Discharge Date Admission Date: December 19, 2019 Subjective Pt very somnolent on my exam in the morning. He is able to answer simple questions and he follows commands, denies any discomfort and denies any pain, reports no complaints, however appears tired. Per nursing staff pt was up and awake earlier, and his daughter was helping him with breakfast. Daughter then present at the bedside for my follow up evaluation. Pt is lying in bed on NC, somnolent. Daughter says that pt usually naps during the day but feels like this is significantly more than usual. Says that usually he uses CPAP at home (was not using now d/t facial fractures). Pt also appeared tachypneic on NC. Called RT for CPAP eval, informed them about facial fx. ABG obtained. ABG -pt hypoxic, does not retain CO2 blood cultx, lact. acid, troponin, TSH obtained for further eval CT PE - obtained (CXR on admission unremarkable) Update: No PE, but L upper lobe infiltrate identified - will start treatment for pna (pt previously on PO Augmentin, will switch to IV vanco and zosyn for now) Pt's present at the bedside this PM and updated. Of note, troponin negative, lactic acid wnl, TSH wnl, follow procalcitonin, blood cltx, sputum cltx Review of Systems Review of Systems: All systems reviewed & are unremarkable except as noted in HPI & below pt denies any complaints however appears more somnolent Constitutional: no fever and no chills Respiratory: no cough and no dyspnea Cardiovascular: no chest pain and no palpitations Gastrointestinal: + fecal incontinence; no abdominal pain, no nausea and no vomiting Genitourinary: + urinary incontinence Physical Exam Physical Exam: GENERAL: Elderly male lying in bed, on NC, somnolent but arousable, obeys simple commands, answers most questions appropriately (however only simple one worded answers) HEENT: No pallor, no icterus. Pupils equal, round, reactive to light. EOMI, ecchymosis of left upper face/orbit NECK: No JVD. No neck mass. No carotid bruits. CARDIOVASCULAR: S1, S2 heard, regular rate and rhythm, no murmur, no gallop. RESPIRATORY SYSTEM: Normal AP diameter. No accessory muscle use. No wheezing, no crackles. ABDOMEN: Soft, bowel sounds present, nontender. No distention. CENTRAL NERVOUS SYSTEM: somnolent but arousable, hard of hearing, obeys simple commands, answers most questions appropriately, moves extremities spontaneously Results & Data ([facility]) Vital Signs (Past 12 Hours) Vital Signs Temp Pulse Pulse Resp BP BP Pulse Ox 12/22/19 04:00 36.4 C L 66 20 124/85 97 12/22/19 03:44 79 16 96 12/22/19 01:08 84 22 94 12/22/19 00:00 74 12/21/19 23:15 62 18 132/74 98 12/21/19 22:03 54 L 20 94 12/21/19 19:09 36.8 C 61 18 152/92 H 93 Laboratory Results reviewed Diagnostic Findings CT PE 12/21/2019 IMPRESSION: 1. No evidence for pulmonary embolus. 2. Focal left upper lobe parenchymal infiltrate. 3. 2 nodular densities of the right hemithorax measuring up to 9 mm. This should be followed on a routine basis at a 3-4 month timeframe. Medications Administered reviewed (1) Fracture of inferior orbital wall Encounter type: initial encounter Fracture type: open Laterality: left Qualified Code(s): S02.32XB - Fracture of orbital floor, left side, initial encounter for open fracture (2) Fall Encounter type: initial encounter Qualified Code(s): W19.XXXA - Unspecified fall, initial encounter
[2019-12-22 07:05] LABS: BUN Creatinine Ratio 16.5 (10-20); Calcium 8.5 mg/dl (8.5-10.1); Creatinine Clr Calc Pharmacy 90.1 ml/min; Est GFR (Non-African American) 90.6; Magnesium 2.1 mg/dl (1.8-2.4); Phosphorus 2.8 mg/dl (2.5-4.9); Potassium 3.4 mmol/L (3.5-5.1)
[2019-12-22] MEDS: METOPROLOL TARTRATE 25 MG TAB PO SCH ×2 (08:47→21:05)
[2019-12-22] MEDS: VENLAFAXINE HCL XR 37.5 MG CAPXR PO SCH (08:49)
[2019-12-22] MEDS: CETIRIZINE HCL 10 MG TABLET PO SCH (08:50)
[2019-12-22] MEDS: LISINOPRIL/HCTZ 20/12.5MG 1 TAB TAB PO SCH (08:50)
[2019-12-22] MEDS: predniSONE 5 MG TAB PO SCH (08:51)
[2019-12-22] MEDS: VANCOMYCIN HCL 1,250 MG in SODIUM CHLORIDE 0.9% 250 ML IV SCH ×2 (09:39→19:54)
[2019-12-22 12:38] LABS: Appearance Urine Clear (Clear); Bilirubin Urine Negative (Negative); Blood Urine Negative (Negative); Color Urine Yellow; Glucose Urine UA Negative (Negative); Ketones Urine Trace (Negative); Leukocyte Esterase Urine Negative (Negative); Nitrite Urine Negative (Negative); Protein Urine Negative (Negative); Specific Gravity Urine 1.018 (1.000-1.030); Urobilinogen Urine Negative (Negative); pH Urine 6.5 (4.5-7.5)
[2019-12-22] MEDS: ATORVASTATIN 10 MG TAB PO SCH (21:05)
[2019-12-22] MEDS: FOLIC ACID 1 MG TAB PO SCH (21:06)
[2019-12-22] MEDS: TRAZODONE HCL 50 MG TAB PO SCH (21:59)
--- NOTE | 2019-12-22 22:29 | Hospitalist Progress Note ---
Date of Service December 22, 2019 Assessment & Plan (1) Fall: Admitted because of frequent falls. Suffered left orbital fracture on 12/15. May be several contributing factors including underlying cerebrovascular disease, rheumatoid arthritis, etc. Fall precautions. (2) Ambulatory dysfunction: Cerebrovascular disease with old stroke. PT/OT. (3) Nonsustained ventricular tachycardia: Had run of nonsustained ventricular tachycardia after physical therapy. Potassium level was low. Receiving potassium chloride and metoprolol. (4) Hypertension: Lisinopril with hydrochlorothiazide continued. Metoprolol added for nonsustained ventricular tachycardia. (5) Pneumonia: CTA of chest performed on 12/21/2019- for pulmonary embolism, but demonstrated left upper lobe infiltrate. Uncertain whether or not pneumonia is community-acquired or healthcare associated. Patient apparently had some coughing the day of admission. Receiving vancomycin and piperacillin/tazobactam. Nasal swab negative for MRSA, so MRSA pneumonia very unlikely. Discontinue vancomycin. (6) Pulmonary nodules: 2 pulmonary nodules in right lung measuring [address] 12/21/2019. Follow-up recommended in 3 to 4 months. (7) Cerebrovascular disease: History of hemorrhagic stroke with residual left hemiparesis. Lacunar infarcts also noted on MRI. (8) Dementia: Underlying cerebrovascular disease and apparent rheumatoid vasculitis. Monitor for delirium. (9) Fracture of inferior orbital wall: Initially received amoxicillin. Now receiving intravenous piperacillin/tazobactam. (10) Rheumatoid arthritis: History of rheumatoid arthritis with apparent chronic meningitis. Continue prednisone and methotrexate. (11) DVT prophylaxis: Anticoagulants not utilized because of frequent falls and soft tissue injuries. SCDs. Ambulate. (12) Discharge planning issues: Discharge disposition to be determined. Family Medicine follow-up with Dr. Pepe. Admission and Anticipated Discharge Date Admission Date: December 19, 2019 Subjective Recheck for multiple problems. Patient seen in their room around 1610. Feels better. Rare cough. No fever or SOB. Review of Systems: Constitutional- no fever. Cardiac- no chest pain. Pulmonary- as noted above. GI- no nausea, vomiting, diarrhea, melena, hematochezia. - no urinary symptoms. Otherwise, as noted above. Physical Exam Constitutional: no acute distress Respiratory: no respiratory distress Auscultation: lungs clear to auscultation bilaterally and + rales (left base) Cardiovascular: Rate/Rhythm: regular rate and regular rhythm Vessels: no JVD Extremities: no calf tenderness and no edema Gastrointestinal (Abdomen): normal bowel sounds, soft, nontender, no hepatosplenomegaly Skin: no rashes, warm and dry ecchymosis left shoulder Psychiatric: Orientation: alert mild-moderate confusion Results & Data ([facility]) Vital Signs (Past 12 Hours) Vital Signs Temp Pulse Pulse Resp BP BP Pulse Ox 12/22/19 19:29 37 C 66 18 131/84 95 12/22/19 15:00 36.5 C 86 18 133/85 97 12/22/19 14:20 82 12/22/19 11:00 36.6 C 88 18 136/81 97 Laboratory Results 12/22/19 05:59 12/22/19 05:59 (1) Fall Encounter type: initial encounter Qualified Code(s): W19.XXXA - Unspecified fall, initial encounter (2) Fracture of inferior orbital wall Encounter type: initial encounter Fracture type: open Laterality: left Qualified Code(s): S02.32XB - Fracture of orbital floor, left side, initial encounter for open fracture
[2019-12-23] MEDS: PIPERACILLIN/TAZOBACTAM 3.375 GM in DEXTROSE 5% 100 ML IV SCH ×2 (06:20→15:14)
[2019-12-23] MEDS ORDERED: VANCOMYCIN TROUGH SCH (07:30)
[2019-12-23 08:15] LABS: BUN Creatinine Ratio 14.7 (10-20); Calcium 9.1 mg/dl (8.5-10.1); Creatinine Clr Calc Pharmacy 82.1 ml/min; Est GFR (African American) 101.1; Est GFR (Non-African American) 87.2; Potassium 3.1 mmol/L (3.5-5.1)
[2019-12-23] MEDS: predniSONE 5 MG TAB PO SCH (08:36)
[2019-12-23] MEDS: CETIRIZINE HCL 10 MG TABLET PO SCH (08:36)
[2019-12-23] MEDS: METOPROLOL TARTRATE 25 MG TAB PO SCH ×2 (08:36→20:32)
[2019-12-23] MEDS: VENLAFAXINE HCL XR 37.5 MG CAPXR PO SCH (08:36)
[2019-12-23] MEDS: LISINOPRIL/HCTZ 20/12.5MG 1 TAB TAB PO SCH (08:36)
[2019-12-23] MEDS ORDERED: POTASSIUM CHLORIDE 20 MEQ TABCR PO ONE (08:43)
[2019-12-23] MEDS ORDERED: metHOTREXate sodium 2.5 MG TAB PO SCH (09:00)
[2019-12-23] MEDS ORDERED: VANCOMYCIN TROUGH ONE (19:30)
--- NOTE | 2019-12-23 20:13 | Hospitalist Progress Note ---
Date of Service December 23, 2019 Assessment & Plan (1) Fall: Admitted because of frequent falls. Suffered left orbital fracture on 12/15. May be several contributing factors including underlying cerebrovascular disease, rheumatoid arthritis, etc. Fall precautions. (2) Ambulatory dysfunction: Cerebrovascular disease with old stroke. PT/OT. (3) Nonsustained ventricular tachycardia: Had run of nonsustained ventricular tachycardia after physical therapy. Potassium level was low. Receiving potassium chloride and metoprolol. (4) Hypertension: Lisinopril with hydrochlorothiazide continued. Metoprolol added for nonsustained ventricular tachycardia. (5) Pneumonia: CTA of chest performed on 12/21/2019- for pulmonary embolism, but demonstrated left upper lobe infiltrate. Uncertain whether or not pneumonia is community-acquired or healthcare associated. Patient apparently had some coughing the day of admission. Receiving vancomycin and piperacillin/tazobactam. Nasal swab negative for MRSA, so MRSA pneumonia very unlikely. Discontinue vancomycin. Pharmacy recommends avoiding penicillins because of possible interactions with methotrexate. Change therapy to cefepime and metronidazole. (6) Pulmonary nodules: 2 pulmonary nodules in right lung measuring [address] 12/21/2019. Follow-up recommended in 3 to 4 months. (7) Cerebrovascular disease: History of hemorrhagic stroke with residual left hemiparesis. Lacunar infarcts also noted on MRI. (8) Dementia: Underlying cerebrovascular disease. Monitor for delirium. (9) Abnormal brain MRI: MRI brain 12/18: "IMPRESSION: 1. Unexplained pachymeningeal enhancement most pronounced over the convexities. This has a wide differential diagnosis including infection, metastatic disease, neurosarcoid, cerebral venous thrombosis, as well as additional etiologies. Clinical correlation is recommended. A lumbar puncture might be considered in follow-up. 2. Suspected tiny areas of restricted water diffusion within the right frontoparietal subarachnoid space 3. Extensive white matter disease and old lacunar infarcts 4. Right mastoid effusion." Has been evaluated at [facility] [place] performed and case discussed at Tumor Board. Thought to have "rheumatoid meningitis." (10) Rheumatoid arthritis: History of rheumatoid arthritis. Continue prednisone and methotrexate. (11) Fracture of inferior orbital wall: Initially received amoxicillin. Now receiving intravenous piperacillin/tazobactam. Changing Rx to cefepime and metronidazole as discussed above. (12) DVT prophylaxis: Anticoagulants not utilized because of frequent falls and soft tissue injuries. SCDs. Ambulate. (13) Discharge planning issues: Discharge disposition to be determined. PT recommends skilled care. OT recommends rehab. Case management following. Family Medicine follow-up with Dr. Pepe. Rheumatology follow-up with Marcia Frye PA-C. Admission and Anticipated Discharge Date Admission Date: December 19, 2019 Subjective Recheck for multiple problems. Patient seen in their room around 1440. Rare cough. No fever or SOB. No other complaints. Review of Systems: Constitutional- no fever. Cardiac- no chest pain. Pulmonary- as noted above. GI- no nausea, vomiting, diarrhea, melena, hematochezia. - no urinary symptoms. Otherwise, as noted above. Physical Exam Constitutional: no acute distress Respiratory: no respiratory distress Auscultation: lungs clear to auscultation bilaterally and + rales (left base) Cardiovascular: Rate/Rhythm: regular rate and regular rhythm Vessels: no JVD Extremities: no calf tenderness and no edema Gastrointestinal (Abdomen): normal bowel sounds, soft, nontender, no hepatosplenomegaly Musculoskeletal: Head/Neck/Chest: + head abnormal to inspection (left periorbital ecchymosis) Shoulder: + shoulder abnormal to inspection (ecchymosis left shoulder) Skin: no rashes, warm and dry Psychiatric: Orientation: alert Results & Data ([facility]) Vital Signs (Past 12 Hours) Vital Signs Temp Pulse Pulse Resp BP Pulse Ox 12/23/19 20:05 36.4 C L 83 18 137/89 95 12/23/19 15:32 36.2 C L 80 18 126/78 96 12/23/19 15:06 83 12/23/19 14:20 70 12/23/19 11:39 36.4 C L 71 18 123/80 93 Laboratory Results Laboratory Results - last 24 hr 12/23/19 07:24 Sodium 139 Potassium 3.1 L Chloride 105 Carbon Dioxide 26 Anion Gap 8.0 BUN 12 Creatinine 0.79 Est Cr Clr Drug Dosing 82.1 Est GFR ( Amer) 101.1 Est GFR (Non-Af Amer) 87.2 BUN/Creatinine Ratio 14.7 Glucose 85 Calcium 9.1 (1) Fall Encounter type: initial encounter Qualified Code(s): W19.XXXA - Unspecified fall, initial encounter (2) Fracture of inferior orbital wall Encounter type: initial encounter Fracture type: open Laterality: left Qualified Code(s): S02.32XB - Fracture of orbital floor, left side, initial encounter for open fracture
[2019-12-23] MEDS: TRAZODONE HCL 50 MG TAB PO SCH (20:32)
[2019-12-23] MEDS: ATORVASTATIN 10 MG TAB PO SCH (20:32)
[2019-12-23] MEDS: FOLIC ACID 1 MG TAB PO SCH (20:32)
[2019-12-23] MEDS: metroNIDAZOLE 500 MG/100 ML BAG IV SCH (21:17)
[2019-12-23] MEDS: CEFEPIME 2,000 MG in SYRINGE 7.5 ML IV SCH (21:17)
[2019-12-23] MEDS: POTASSIUM CHLORIDE 20 MEQ TABCR PO SCH (21:18)
[2019-12-24] MEDS: metroNIDAZOLE 500 MG/100 ML BAG IV SCH ×2 (05:38→13:25)
[2019-12-24 07:03] LABS: BUN Creatinine Ratio 15.5 (10-20); Calcium 8.9 mg/dl (8.5-10.1); Creatinine Clr Calc Pharmacy 86.5 ml/min; Est GFR (African American) 103.3; Est GFR (Non-African American) 89.1; Potassium 3.4 mmol/L (3.5-5.1)
[2019-12-24] MEDS: VENLAFAXINE HCL XR 37.5 MG CAPXR PO SCH (08:27)
[2019-12-24] MEDS: predniSONE 5 MG TAB PO SCH (08:27)
[2019-12-24] MEDS: POTASSIUM CHLORIDE 20 MEQ TABCR PO SCH ×2 (08:27→21:12)
[2019-12-24] MEDS: CETIRIZINE HCL 10 MG TABLET PO SCH (08:28)
[2019-12-24] MEDS: LISINOPRIL/HCTZ 20/12.5MG 1 TAB TAB PO SCH (08:28)
[2019-12-24] MEDS: METOPROLOL TARTRATE 25 MG TAB PO SCH ×2 (08:28→21:12)
[2019-12-24] MEDS: CEFEPIME 2,000 MG in SYRINGE 7.5 ML IV SCH (08:36)
[2019-12-24] MEDS ORDERED: POTASSIUM CHLORIDE 20 MEQ TABCR PO STA (09:32)
--- NOTE | 2019-12-24 13:53 | Hospitalist Progress Note ---
Date of Service December 24, 2019 Assessment & Plan (1) Pneumonia: CTA of chest performed on 12/21/2019- for pulmonary embolism, demonstrated left upper lobe infiltrate. Nasal swab negative for MRSA Antibiotic changed to p.o. Levaquin only (2) Fall: Admitted because of frequent falls. Suffered left orbital fracture on 12/15. May be several contributing factors including underlying cerebrovascular disease, rheumatoid arthritis,; leading to ambulatory dysfunction Fall precautions. PT OT evaluation she did, recommend rehab [facility] Obstructive sleep apnea Continue to use BiPAP at night, Sitting IPAP 16/EPAP 6 with oxygen at 3 L (3) Nonsustained ventricular tachycardia: No further episode (4) Hypertension: Lisinopril with hydrochlorothiazide continued. Metoprolol added for nonsustained ventricular tachycardia. (5) Pulmonary nodules: 2 pulmonary nodules in right lung measuring [address] 12/21/2019. Follow-up recommended in 3 to 4 months. (6) Cerebrovascular disease: History of hemorrhagic stroke with residual left hemiparesis. Lacunar infarcts also noted on MRI. (7) Dementia: Underlying cerebrovascular disease. Oriented to person only Monitor for delirium. (8) Abnormal brain MRI: MRI brain 12/18: "IMPRESSION: 1. Unexplained pachymeningeal enhancement most pronounced over the convexities. This has a wide differential diagnosis including infection, metastatic disease, neurosarcoid, cerebral venous thrombosis, as well as additional etiologies. Clinical correlation is recommended. A lumbar puncture might be considered in follow-up. 2. Suspected tiny areas of restricted water diffusion within the right frontoparietal subarachnoid space 3. Extensive white matter disease and old lacunar infarcts 4. Right mastoid effusion." Has been evaluated at [facility] [place]. [facility] performed and case discussed at Tumor Board. 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 Continue prednisone and methotrexate. (10) Fracture of inferior orbital wall: Secondary to fall (11) DVT prophylaxis: Anticoagulants not utilized because of frequent falls and soft tissue injuries. SCDs. Ambulate. (12) Discharge planning issues: [facility] Family Medicine follow-up with Dr. Pepe. Rheumatology follow-up with Marcia Frye PA-C. Admission and Anticipated Discharge Date Admission Date: December 19, 2019 Anticipated date of discharge: 12/25/19 Subjective Patient seen and examined, Sitting up on chair, finished lunch, awake and alert, oriented to person only Offers no complaint, No cough, no shortness of breath, Remains afebrile, vitals stable Review of Systems Constitutional: no fever and no chills Respiratory: no cough, no dyspnea on exertion and no wheezing Physical Exam Constitutional: WD/WN, vitals as above + ill appearing; no acute distress Eyes: PERRL, conjunctivae normal, anicteric sclerae ENMT: external ear and nose normal, oropharynx normal Neck: trachea midline, no thyromegaly Respiratory: no cough Auscultation: no diminished lung sounds, no rales, no rhonchi and no wheezes Cardiovascular: Rate/Rhythm: regular rate and regular rhythm Extremities: no pedal edema Gastrointestinal (Abdomen): normal bowel sounds, soft, nontender, no hepatosplenomegaly Musculoskeletal: Extremities: + abnormal strength Neurologic: PERRL, EOMI, accommodation nl, no face palsy, no dysarthria Psychiatric: Orientation: alert and oriented to person Results & Data ([facility]) Vital Signs (Past 12 Hours) Vital Signs Temp Pulse Pulse Resp BP Pulse Ox 12/24/19 11:57 36.5 C 67 18 109/73 96 12/24/19 03:49 70 18 98 12/24/19 03:48 36.5 C 70 21 137/91 98 12/24/19 01:[address] PE 12/21/2019 IMPRESSION: 1. No evidence for pulmonary embolus. 2. Focal left upper lobe parenchymal infiltrate. 3. 2 nodular densities of the right hemithorax measuring up to 9 mm. This should be followed on a routine basis at a 3-4 month timeframe. (1) Fall Encounter type: initial encounter Qualified Code(s): W19.XXXA - Unspecified fall, initial encounter (2) Fracture of inferior orbital wall Encounter type: initial encounter Fracture type: open Laterality: left Qualified Code(s): S02.32XB - Fracture of orbital floor, left side, initial encounter for open fracture
[2019-12-24] MEDS: levoFLOXacin 750 MG TAB PO SCH (14:29)
[2019-12-24] MEDS: FOLIC ACID 1 MG TAB PO SCH (21:10)
[2019-12-24] MEDS: ATORVASTATIN 10 MG TAB PO SCH (21:11)
[2019-12-24] MEDS: TRAZODONE HCL 50 MG TAB PO SCH (22:32)
[2019-12-25 08:04] LABS: Creatinine Clr Calc Pharmacy 91.4 ml/min; Est GFR (African American) 105.6; Est GFR (Non-African American) 91.1
[2019-12-25] MEDS: METOPROLOL TARTRATE 25 MG TAB PO SCH (08:17)
[2019-12-25] MEDS: LISINOPRIL/HCTZ 20/12.5MG 1 TAB TAB PO SCH (08:17)
[2019-12-25] MEDS: VENLAFAXINE HCL XR 37.5 MG CAPXR PO SCH (08:17)
[2019-12-25] MEDS: POTASSIUM CHLORIDE 20 MEQ TABCR PO SCH (08:19)
[2019-12-25] MEDS: predniSONE 5 MG TAB PO SCH (08:20)
[2019-12-25] MEDS: CETIRIZINE HCL 10 MG TABLET PO SCH (08:20)
[2019-12-25] MEDS: levoFLOXacin 750 MG TAB PO SCH (12:28)
--- NOTE | 2019-12-25 17:14 | Hospitalist Progress Note ---
Date of Service December 25, 2019 Assessment & Plan (1) Pneumonia: CTA of chest performed on 12/21/2019- for pulmonary embolism, demonstrated left upper lobe infiltrate. Nasal swab negative for MRSA Patient is discharged to rehab with farzad Mace (2) Fall: Admitted because of frequent falls. Suffered left orbital fracture on 12/15. May be several contributing factors including underlying cerebrovascular disease, rheumatoid arthritis,; leading to ambulatory dysfunction Fall precautions. PT OT evaluation , recommend rehab Referral made to [facility] to be discharged to acute rehab today Obstructive sleep apnea Continue to use BiPAP at night, Sitting IPAP 16/EPAP 6 with oxygen at 3 L (3) Nonsustained ventricular tachycardia: No further episode (4) Hypertension: Lisinopril with hydrochlorothiazide continued. Metoprolol added for nonsustained ventricular tachycardia. (5) Pulmonary nodules: 2 pulmonary nodules in right lung measuring [address] 12/21/2019. Follow-up recommended in 3 to 4 months. (6) Cerebrovascular disease: History of hemorrhagic stroke with residual left hemiparesis. Lacunar infarcts also noted on MRI. (7) Dementia: Underlying cerebrovascular disease. Oriented to person only Remains stable, with baseline mental status, able to follow command, oriented to place and person, stable to be discharged to acute rehab (8) Abnormal brain MRI: MRI brain 12/18: "IMPRESSION: 1. Unexplained pachymeningeal enhancement most pronounced over the convexities. This has a wide differential diagnosis including infection, metastatic disease, neurosarcoid, cerebral venous thrombosis, as well as additional etiologies. Clinical correlation is recommended. A lumbar puncture might be considered in follow-up. 2. Suspected tiny areas of restricted water diffusion within the right frontoparietal subarachnoid space 3. Extensive white matter disease and old lacunar infarcts 4. Right mastoid effusion." [place] [facility] and case discussed at Tumor [facility]. 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 Continue prednisone and methotrexate. (10) Fracture of inferior orbital wall: Secondary to fall (11) DVT prophylaxis: Anticoagulants not utilized because of frequent falls and soft tissue injuries. SCDs. Ambulate. (12) Discharge planning issues: Able to be discharged to [facility] Family Medicine follow-up with Dr. Pepe. Rheumatology follow-up with Marcia Frye PA-C. Admission and Anticipated Discharge Date Admission Date: December 19, 2019 Anticipated date of discharge: 12/25/19 Subjective Patient continues to do well, no cough, no shortness of breath, Is in room air Fever or chills, Able to be discharged to acute rehab [facility] Review of Systems Review of Systems: All systems reviewed & are unremarkable except as noted in HPI & below Respiratory: no cough, no dyspnea, no dyspnea on exertion and no wheezing Cardiovascular: no dyspnea, no dyspnea on exertion and no orthopnea Physical Exam Constitutional: WD/WN, vitals as above + ill appearing; no acute distress Eyes: PERRL, conjunctivae normal, anicteric sclerae ENMT: external ear and nose normal, oropharynx normal Neck: trachea midline, no thyromegaly Respiratory: no cough Auscultation: no diminished lung sounds, no rales, no rhonchi and no wheezes Cardiovascular: Rate/Rhythm: regular rate and regular rhythm Extremities: no pedal edema Gastrointestinal (Abdomen): normal bowel sounds, soft, nontender, no hepatosplenomegaly Musculoskeletal: Extremities: + abnormal strength Neurologic: PERRL, EOMI, accommodation nl, no face palsy, no dysarthria + focal motor deficit (Chronic left-sided weakness from prior CVA) Psychiatric: Orientation: alert and oriented to person Results & Data ([facility]) Vital Signs (Past 12 Hours) Vital Signs Temp Pulse Resp BP BP Pulse Ox 12/25/19 15:51 36.2 C L 76 18 123/81 120/78 92 12/25/19 07:42 36.2 C L 76 18 120/78 92 (1) Fall Encounter type: initial encounter Qualified Code(s): W19.XXXA - Unspecified fall, initial encounter (2) Fracture of inferior orbital wall Encounter type: initial encounter Fracture type: open Laterality: left Qualified Code(s): S02.32XB - Fracture of orbital floor, left side, initial encounter for open fracture
--- NOTE | 2019-12-25 17:16 | Discharge Summary ---
Date of Service December 25, 2019 Admission HPI Per Admitting Provider DICTATED BY: Chris Allison MD DATE OF ADMISSION: 12/19/2019 CHIEF COMPLAINT: Frequent falls. HISTORY OF PRESENT ILLNESS: This is a 74-year-old male with past medical history significant for atrial premature beats, hypertension, history of dementia, anemia, rheumatoid arthritis, depression, history of prostate cancer, history of hemorrhagic stroke with some left-sided weakness, pulmonary nodules. Lives with his . Ambulates with a walker, was brought in because of frequent falls. The patient was here in the ER last Monday with a fall and left sided facial abrasions and CAT scan imaging studies shows left orbital floor fracture. At that time, oral maxillary surgery service was called and to follow as outpatient and was discharged to home on po abx., But at home ahe was falling frequently and he seems to be little more confused. As per the , he watches TV, [place] channel which he does not known the language, seemed to be staring and somewhat more confused, generally he is otherwise alert and oriented. His appetite is okay, swallows okay. No fever, no chills, no runny nose, no sore throat, no cough, no chest pain, no shortness of breath, no abdominal pain, no back pain, no headaches. The patient answers simple questions, somewhat hard of hearing. Obeys simple commands, has a bruise on the left side of his face. The patient has history of salazar, the is worried of anymore strokes and plan was to admit to the hospital for workup for stroke, and PT, OT and plan for rehabilitation placement. Principal Diagnosis Fall/ambulatory dysfunction/fracture of nasal bones/pneumonia/chronic Rheumatoid meningitis Discharge Exam Constitutional WD/WN, vitals as above + ill appearing; no acute distress Eyes PERRL, conjunctivae normal, anicteric sclerae ENMT external ear and nose normal, oropharynx normal Neck trachea midline, no thyromegaly Respiratory no cough Auscultation: no diminished lung sounds, no rales, no rhonchi and no wheezes Cardiovascular Rate/Rhythm: regular rate and regular rhythm Extremities: no pedal edema Gastrointestinal (Abdomen) normal bowel sounds, soft, nontender, no hepatosplenomegaly Musculoskeletal Extremities: + abnormal strength Neurologic PERRL, EOMI, accommodation nl, no face palsy, no dysarthria + focal motor deficit (Chronic left-sided weakness from prior CVA) Psychiatric Orientation: alert and oriented to person Discharge Data Allergies Allergy/AdvReac Type Severity Reaction Status Date / Time No Known Allergies Allergy NONE Verified 12/16/19 10:32 Consultations 12/19/19 01:22 ED Decision to Admit Stat 12/19/19 03:22 Consult Case Management - Discharge Planning Routine 12/19/19 07:18 Consult Neurology Routine Ordered Studies 12/18/19 22:59 CT head/brain wo con Urgent 12/19/19 03:22 MR brain wo/w con Routine 12/19/19 07:22 CT angio neck with con Urgent 12/19/19 08:00 CT angio head w con Urgent 12/21/19 16:59 CT angio chest PE protocol Stat 12/21/19 17:04 CT head/brain wo con Stat Hospital Course (1) Pneumonia: CTA of chest performed on 12/21/2019- for pulmonary embolism, demonstrated left upper lobe infiltrate. Nasal swab negative for MRSA Patient is discharged to rehab with p.oPepe Mace (2) Fall: Admitted because of frequent falls. Suffered left orbital fracture on 12/15. May be several contributing factors including underlying cerebrovascular disease, rheumatoid arthritis,; leading to ambulatory dysfunction Fall precautions. PT OT evaluation , recommend rehab Referral made to [facility] stable to be discharged to acute rehab today Obstructive sleep apnea Continue to use BiPAP at night, Sitting IPAP 16/EPAP 6 with oxygen at 3 L (3) Nonsustained ventricular tachycardia: No further episode (4) Hypertension: Lisinopril with hydrochlorothiazide continued. Metoprolol added for nonsustained ventricular tachycardia. (5) Pulmonary nodules: 2 pulmonary nodules in right lung measuring [address] 12/21/2019. Follow-up recommended in 3 to 4 months. (6) Cerebrovascular disease: History of hemorrhagic stroke with residual left hemiparesis. Lacunar infarcts also noted on MRI. (7) Dementia: Underlying cerebrovascular disease. Oriented to person only Remains stable, with baseline mental status, able to follow command, oriented to place and person, stable to be discharged to acute rehab (8) Abnormal brain MRI: MRI brain 12/18: "IMPRESSION: 1. Unexplained pachymeningeal enhancement most pronounced over the convexities. This has a wide differential diagnosis including infection, metastatic disease, neurosarcoid, cerebral venous thrombosis, as well as additional etiologies. Clinical correlation is recommended. A lumbar puncture might be considered in follow-up. 2. Suspected tiny areas of restricted water diffusion within the right frontoparietal subarachnoid space 3. Extensive white matter disease and old lacunar infarcts 4. Right mastoid effusion." Has been evaluated at [facility] [place]. [facility] performed and case discussed at Tumor Board. 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 Continue prednisone and methotrexate. (10) Fracture of inferior orbital wall: Secondary to fall (11) DVT prophylaxis: Anticoagulants not utilized because of frequent falls and soft tissue injuries. SCDs. Ambulate. (12) Discharge planning issues: Able to be discharged to [facility] today Family Medicine follow-up with Dr. Pepe. Rheumatology follow-up with Marcia Frye PA-C. Total Time Total Time Spent Total Time Spent (In Minutes): 40 mins Total Time Includes: Examination of the Patient, Discharge Planning and Medication Reconciliation Discharge Plan Discharge Items Patient Disposition: Transfer Inpatient Rehab Fac Reason For Visit: FALLS Discharge Diagnosis: Fall/ambulatory dysfunction/fracture of nasal bones/pneumonia/chronic Rheumatoid meningitis Condition on Discharge: Fair Activity: As commented below Activity Comment: Continue physical therapy/Occupational Therapy at [facility] Non-emergency contact: Primary Care Provider Call non-emergency contact if: you have any medication questions Follow-up/Referrals: Gabriela Pepe, [Primary Care Provider] - Tamera Singleton PA-C [Physician Demurrage Agent] - (Follow up with Neurology in 4-6 weeks for abnormal MRI scan of brain ) Diet: Heart Healthy Addtl Attending Provider Instructions: Continue physical therapy/occupational therapy at [facility] FOLLOW UP WITH RHEUMATOLOGY FOR POSSIBLE CHRONIC RHEUMATOID ARTHRITIS MENINGITIS . MRI brain- pachymeningeal enhancement- known findings- . [facility] [facility] tumor board - October 2019- rheumatoid meningitis - Pending Studies at Discharge: Yes Studies:: 2 pulmonary nodules in right lung measuring [address] 12/21/2019. Follow-up recommended in 3 to 4 months. Stand-Alone Forms: My [employer] Skilled Items Patient informed of condition?: Yes DNR: No Discharge Level of Care: Acute rehab Communicable Disease: No Discharge Prognosis: Stable Lines: None Urinary Catheter: No Medications and DC Order Prescriptions: New levofloxacin 750 mg Tablet 750 mg PO DAILY Qty: 2 RF: 0 Continued lisinopril-hydrochlorothiazide 20-12.5 mg Tablet 1 tab PO QAM RF: 0 methotrexate sodium 2.5 mg Tablet 20 mg PO MO RF: 0 trazodone 150 mg Tablet 150 mg PO HS RF: 0 folic acid 1 mg Tablet 2 mg PO HS RF: 0 atorvastatin 10 mg Tablet 10 mg PO HS RF: 0 venlafaxine 37.5 mg capsule,extended release 24hr 37.5 mg PO QAM RF: 0 cetirizine [Zyrtec] 10 mg Tablet 10 mg PO QAM RF: 0 prednisone 5 mg Tablet 5 mg PO DAILY RF: 0 Discontinued amoxicillin 875 mg tablet 875 mg PO BID 7 Days Qty: 14 RF: 0 Discharge Orders: Discharge Order (Routine); Ordered 12/25/19 Ordered By: Ailyn King Admission Data Admit Date/Time: 12/19/19 02:08 Attending Provider: Ailyn King Admit Provider: Crhis lAlison Primary Care Provider: Gabriela Pepe Other Providers: [facility] ; Romulo Domínguez ; Chris Allison ; Tamera Singleton ; Ry Lam ; Tamera Reddy ; Andreas Hadley Other Interventions: Discharge Summary Assessment (RN) Last Done: 12/25/19 15:51 DC Date/Time DO NOT enter until pt leaves facility: 12/25/19 16:58
== END 2019-12-25 16:58 | DRG 91 ==
LOC: ED 22:28 → SUATTDRO 12-19 02:08 → 2N 12-19 02:08 → 3E 12-24 14:40

== ENCOUNTER 2020-01-13 18:51 | Inpatient (IN) ==
[2020-01-13] MEDS ORDERED: SODIUM CHLORIDE 0.9% 1000ML 2,000 ML IV ONE (19:16)
--- NOTE | 2020-01-13 19:17 | Emergency Department Note ---
Impression & Plan Sepsis, Acute renal failure, C. difficile colitis ED Provider Note NAME: AJ NAYAK AGE: 74 SEX: M : 1945 ARRIVES VIA: Walk-In INFORMANT: Patient, PCP and family ED PROVIDER(S): Singh Swenson DO CHIEF COMPLAINT: Weakness, CARLA HPI: Patient is a 74-year-old male with recent admission here with a past medical history of stroke, rheumatoid meningitis and pneumonia. Patient was transferred to [facility] following admission here and has been discharged home on the third. Patient has been weak. Per report has been having diarrhea and vomiting. Patient had blood work at [facility] which showed a creatinine of 5 up from a baseline of 1. notes that he has been having diarrhea while at [facility] and was treated for C. difficile. He is currently taking medication 4 times a day at this time but she is uncertain of what it is. She also notes he has been unable to keep anything down since getting home as he has been vomiting everything back up. Patient denies any complaints at this time. Pt denies headache, change in vision, fevers, chest pain, shortness of breath, nausea, vomiting, diarrhea, pain with urination, and melena. He denies cough but does have an intermittent cough in the room. Diarrhea has resolved over the past 2 days. ROS: See above HPI for pertinent positives & negatives. Review of systems diffi cult to obtain secondary to mentation. PAST MEDICAL HISTORY:See Below PAST SURGICAL HISTORY:See Below FAMILY HISTORY:See Below SOCIAL HISTORY:See Below HOME MEDICATIONS:See Below ALLERGIES:See Below VITALS:See Below PHYSICAL EXAMINATION: GENERAL: Lying in bed, lethargic, chronically ill-appearing EYE EXAM: normal conjunctiva. OROPHARYNX: no exudate, no erythema, lips, buccal mucosa, and tongue normal and mucous membranes are moist NECK: supple, no nuchal rigidity, no adenopathy, non-tender LUNGS: Clear to auscultation. Normal chest wall mechanics HEART: no murmurs, S1 normal and S2 normal ABDOMEN: abdomen soft, non-tender, normo-active bowel sounds, no masses, no rebound or guarding. BACK: Back is symmetrical on inspection and there is no deformity, no midline tenderness, no CVA tenderness. SKIN: no rashes and no bruising UPPER EXTREMITIES: upper extremities are grossly normal. LOWER EXTREMITIES: No pitting edema. NEURO EXAM: Oriented to person, place and year, cranial nerves II-XII grossly intact, normal speech, no gross weakness of arms, no gross weakness of legs. MEDICAL DECISION MAKING: Patient is a 74-year-old male that presents the ER referred in by PCP for weakness. Patient was recently admitted and transferred to [facility] and discharged from there on the third of this month. Patient has been home and has been unable to keep anything down since then with vomiting. Patient did have diarrhea while at [facility] and was treated for C. difficile although this has resolved per the . He denies any complaints and is oriented to person place and year but is very lethargic. IVs were established blood work was obtained. He was slightly hypotensive and slightly tachycardic. Afebrile. Labs show leukocytosis of 32,000 significantly up from baseline. Hemoglobin at 13.9. BMP with a creatinine of 5.34 and BUN of 69. Mild hyponatremia. Lactate was normal . LFTs were unremarkable. Magnesium was elevated. Chest x-ray was unremarkable. Initial EKG was nearly unreadable. Collins was placed to monitor eyes and nose. He was given [address] abdomen pelvis was performed and was fairly unremarkable. Did discuss with his and updated [facility] team. Patient's pressures were marginal at best in the low 90s. He was given a total of 3 L normal saline. Of note patient did make a small amount of dark concentrated urine. Patient was given oral vancomycin. Triage Nursing notes reviewed. Prior medical records reviewed Vital Signs: reviewed and remarkable for hypotension and tachycardia Differential diagnosis: Differential diagnosis includes etiologies such as sepsis, UTI, pneumonia, metabolic, electrolyte abnormalities, cardiac sources, intracerebral event, toxicologic, neurological, as well as others were entertained. ER treatment provided: See below Diagnostics interpreted by me: ECG: Nearly interpretable but appears to be a sinus tachycardia at 103 Poor baseline throughout Normal QTC Nonspecific ST wave changes in the lateral leads Unable to interpret the inferior leads EKG #2 Sinus tachycardia rate of 104 left axis No PVCs Poor baseline ST depressions in the inferior leads Septal Q waves Cardiac Monitoring: Sinus tachycardia rate of 105 Laboratory studies: As stated above and show below. Imaging studies: See below Consultation(s): Dr. Bustillo from [facility] ED COURSE: Procedures: none Critical Care: I have personally spent 31 minutes of critical care time in the direct management of this patient. This includes bedside care, interpretation of diagn ostic studies, and testing, discussion with consultants, patient, and family members, and other required patient management activities. This 31 minutes is in excess of all separately billable procedures. Past Med/Surg History Medical History (Updated 01/13/20 @ 21:21 by Singh Swenson DO) Abnormal brain MRI Abnormal brain MRI Anemia Anxiety Cerebrovascular disease Depression Hearing deficit Hypertension Prostate CA 1999--SX, NO CHEMO/RADIATION Pulmonary nodules two 9 mm pulm nodules right lung CT 12/21/19 f/u 3-4 mos Rheumatoid arthritis Stroke 05/2017--LEFT SIDE WEAKNESS Surgical History H/O abdominal surgery 05/2017--FEEDING TUBE PLACED THEN REMOVED (07/2017) H/O prostate biopsy 1999--MALIGNANT H/O prostatectomy 1999 @ [facility] History of appendectomy History of arthroscopy of left shoulder History of colonoscopy History of left hip replacement History of lumbar fusion X2---NORMAL ROM History of right hip replacement History of tonsillectomy Social History Preferred Language: Latvian Communication 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: 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[employer] Shift Required: No Beliefs That Will Affect Care: None marital status: Current Living Situation: Spouse current occupational status: employed Feels Safe at Home: Yes Smoking Status: Former smoker Tobacco Type: cigarettes ; Second Hand Exposure: No ; Hx Alcohol Use: No Hx Substance Use: No Allergies Allergies Allergy/AdvReac Type Severity Reaction Status Date / Time No Known Allergies Allergy NONE Verified 01/13/20 20:33 Home Meds Home Medications Medication Instructions Recorded Confirmed folic acid 2 mg PO HS 07/03/18 01/13/20 methotrexate sodium 5 mg PO .BIDQMON 07/03/18 01/13/20 trazodone 150 mg PO HS 07/03/18 01/13/20 atorvastatin 10 mg PO HS 04/05/19 01/13/20 cetirizine [Zyrtec] 10 mg PO QAM 12/16/19 01/13/20 venlafaxine 37.5 mg PO QAM 12/16/19 01/13/20 prednisone 5 mg PO DAILY 12/19/19 01/13/20 hydrochlorothiazide 12.5 mg PO QAM 01/13/20 01/13/20 metoprolol tartrate 12.5 mg PO BID 01/13/20 01/13/20 potassium chloride [Klor-Con M20] 20 meq PO BID 01/13/20 01/13/20 vancomycin [Vancocin] 125 mg PO QID 01/13/20 01/13/20 Results & Data (ED) Vital Signs Vital Signs - 24 hr 01/13/20 18:53 01/13/20 19:34 01/13/20 20:18 Temperature 36.6 C Temperature Source Oral Pulse Rate 74 Pulse Rate [Finger] 112 H Respiratory Rate 18 Respiratory Effort / Characteristics Non-Labored Respiratory Depth Normal Blood Pressure [Right Arm] 96/68 L Blood Pressure Mean [Right Arm] 77 Pulse Oximetry 98 Oxygen Delivery Method Room Air Room Air Sepsis Recent Fever Within 48 Hours No Sepsis New/Unexplained Change in Mental Status No Sepsis Action Taken by Nursing No Action Required 01/13/20 20:51 Temperature Temperature Source Pulse Rate Pulse Rate [Finger] 96 H Respiratory Rate Respiratory Effort / Characteristics Respiratory Depth Blood Pressure [Right Arm] 91/61 L Blood Pressure Mean [Right Arm] 71 Pulse Oximetry Oxygen Delivery Method Sepsis Recent Fever Within 48 Hours Sepsis New/Unexplained Change in Mental Status Sepsis Action Taken by Nursing Laboratory Data Result diagrams: 01/13/20 19:59 01/13/20 19:59 Lab Results 01/13/20 01/13/20 01/13/20 Range/Units 19:59 19:59 19:59 WBC 32.76 H* (4.8-10.8) K/uL RBC 4.58 L (4.7-6.1) M/uL Hgb 13.9 L (14.0-18.0) g/dL POC Hgb (14.0-18.0) g/dl Hct 40.2 L (42-52) % POC Hct (42-52) % MCV 87.8 (80-100) fL MCH 30.3 (25-34) pg MCHC 34.6 (32-36) g/dL RDW Std Deviation 49.8 H (36.4-46.3) fL RDW Coeff of Monserrat 15.8 H (11.5-14.5) % Plt Count 275 (130-400) K/uL MPV 10.7 H (7.4-10.4) fL Immature Gran % (Auto) 1.1 % Neut % (Auto) 88.5 % Lymph % (Auto) 3.7 % Stafford % (Auto) 6.5 % Eos % (Auto) 0.1 % Baso % (Auto) 0.1 % Immature Gran # (Auto) 0.35 H (0.00-0.02) K/uL Neut # (Auto) 29.01 H (1.4-6.5) K/uL Lymph # (Auto) 1.22 (1.2-3.4) K/uL Stafford # (Auto) 2.12 H (0.11-0.59) K/uL Eos # (Auto) 0.04 (0-0.5) K/uL Baso # (Auto) 0.02 (0-0.2) K/uL Blood Smear Review Cancelled PT 10.9 (9.0-12.0) Seconds INR 1.0 (0.9-1.1) APTT 22.5 (21.0-31.0) Seconds PTT Ratio 0.8 POC Sodium (135-144) mmol/L Sodium 134 L (136-145) mmol/L POC Potassium (3.3-5.0) mmol/L Potassium 4.7 (3.5-5.1) mmol/L POC Chloride (101-112) mmol/L Chloride 101 (98-107) mmol/L Carbon Dioxide 23 (21-32) mmol/L POC Total CO2 (24-31) mEq/l Anion Gap 10.0 (3-11) POC Anion Gap (16-25) mmol/L POC BUN (7-18) mg/dl BUN 68 H (7-18) mg/dl Creatinine 5.34 H* (0.6-1.4) mg/dl POC Creatinine (0.6-1.3) mg/dl Est Cr Clr Drug Dosing 12.2 ml/min Est GFR ( Amer) 11.1 Est GFR (Non-Af Amer) 9.6 BUN/Creatinine Ratio 13.1 (10-20) Glucose 101 H (70-99) mg/dl POC Glucose (other) (70-99) mg/dl Lactate (0.4-2.0) mmol/L Calcium 9.1 (8.5-10.1) mg/dl POC Ioniz Calcium Juancarlos (1.12-1.32) mmol/l Magnesium 2.8 H (1.8-2.4) mg/dl Total Bilirubin 0.5 (0.2-1) mg/dl AST 82 H (15-37) U/L ALT 50 (12-78) U/L Alkaline Phosphatase 82 (45-117) U/L Total Protein 6.5 (6.4-8.2) gm/dl Albumin 2.5 L (3.4-5.0) gm/dl Globulin 4.0 (2.5-4.0) gm/dl Albumin/Globulin Ratio 0.6 L (0.9-2) 01/13/20 01/13/20 Range/Units 19:59 20:10 WBC (4.8-10.8) K/uL RBC (4.7-6.1) M/uL Hgb (14.0-18.0) g/dL POC Hgb 13.6 L (14.0-18.0) g/dl Hct (42-52) % POC Hct 40 L (42-52) % MCV (80-100) fL MCH (25-34) pg MCHC (32-36) g/dL RDW Std Deviation (36.4-46.3) fL RDW Coeff of Monserrat (11.5-14.5) % Plt Count (130-400) K/uL MPV (7.4-10.4) fL Immature Gran % (Auto) % Neut % (Auto) % Lymph % (Auto) % Stafford % (Auto) % Eos % (Auto) % Baso % (Auto) % Immature Gran # (Auto) (0.00-0.02) K/uL Neut # (Auto) (1.4-6.5) K/uL Lymph # (Auto) (1.2-3.4) K/uL Stafford # (Auto) (0.11-0.59) K/uL Eos # (Auto) (0-0.5) K/uL Baso # (Auto) (0-0.2) K/uL Blood Smear Review PT (9.0-12.0) Seconds INR (0.9-1.1) APTT (21.0-31.0) Seconds PTT Ratio POC Sodium 133 L (135-144) mmol/L Sodium (136-145) mmol/L POC Potassium 4.7 (3.3-5.0) mmol/L Potassium (3.5-5.1) mmol/L POC Chloride 100 L (101-112) mmol/L Chloride (98-107) mmol/L Carbon Dioxide (21-32) mmol/L POC Total CO2 24 (24-31) mEq/l Anion Gap (3-11) POC Anion Gap 15.0 L (16-25) mmol/L POC BUN 62 H (7-18) mg/dl BUN (7-18) mg/dl Creatinine (0.6-1.4) mg/dl POC Creatinine 6.1 H* (0.6-1.3) mg/dl Est Cr Clr Drug Dosing ml/min Est GFR ( Amer) Est GFR (Non-Af Amer) BUN/Creatinine Ratio (10-20) Glucose (70-99) mg/dl POC Glucose (other) 101 H (70-99) mg/dl Lactate 1.8 (0.4-2.0) mmol/L Calcium (8.5-10.1) mg/dl POC Ioniz Calcium Juancarlos 1.13 (1.12-1.32) mmol/l Magnesium (1.8-2.4) mg/dl Total Bilirubin (0.2-1) mg/dl AST (15-37) U/L ALT (12-78) U/L Alkaline Phosphatase (45-117) U/L Total Protein (6.4-8.2) gm/dl Albumin (3.4-5.0) gm/dl Globulin (2.5-4.0) gm/dl Albumin/Globulin Ratio (0.9-2) Administered Medications Sodium Chloride (Nss 1000ml) 2,000 mls @ 999 mls/hr IV .Q2H1M ONE Stop: 01/13/20 21:16 Last Admin: 01/13/20 20:02 Dose: 999 mls/hr Documented by: [id number] Discharge Plan Visit Data Chief Complaint: Referred by Doctor Stated Complaint: Dehydration, ref by doc ED Provider: Singh Swenson Discharge Problem: Sepsis, Acute renal failure, C. difficile colitis Forms Stand Alone Forms: My [facility] Prescriptions Prescriptions: No Action methotrexate sodium 2.5 mg Tablet 5 mg PO .BIDQMON RF: 0 trazodone 150 mg Tablet 150 mg PO HS RF: 0 folic acid 1 mg Tablet 2 mg PO HS RF: 0 atorvastatin 10 mg Tablet 10 mg PO HS RF: 0 vancomycin [Vancocin] 125 mg capsule 125 mg PO QID RF: 0 potassium chloride [Klor-Con M20] 20 mEq tablet,ER particles/crystals 20 meq PO BID RF: 0 metoprolol tartrate 25 mg tablet 12.5 mg PO BID RF: 0 hydrochlorothiazide 12.5 mg tablet 12.5 mg PO QAM RF: 0 venlafaxine 37.5 mg capsule,extended release 24hr 37.5 mg PO QAM RF: 0 cetirizine [Zyrtec] 10 mg Tablet 10 mg PO QAM RF: 0 prednisone 5 mg Tablet 5 mg PO DAILY RF: 0 Discharge Problem: Sepsis Qualifiers: Sepsis type: sepsis due to unspecified organism Sepsis acute organ dysfunction status: unspecified Qualified Code(s): A41.9 - Sepsis, unspecified organism Acute renal failure Qualifiers: Acute renal failure type: unspecified Qualified Code(s): N17.9 - Acute kidney failure, unspecified
--- NOTE | 2020-01-13 20:11 | XRay Report ---
SINGLE VIEW CHEST CLINICAL HISTORY: Sepsis. FINDINGS: An AP, portable, semierect chest radiograph is compared to study dated 12/18/2019 and correl ated with chest CT dated 12/21/2019. The examination is significantly degraded by portable technique a nd patient rotation. The heart is enlarged. The pulmonary vasculature is noncongested. Chronic inter stitial thickening is similar to previous. Scarring/atelectasis is noted at the lung bases. No airspa ce consolidation or large pleural effusion is identified. No pneumothorax is seen. The skeletal struc tures are osteopenic. There are numerous healed left-sided rib fractures. IMPRESSION: Cardiomegaly with no acute cardiopulmonary abnormality. ACT 112: Negative or not required by law. Electronically signed by: Jake Morocho M.D. 01/13/2020 8:10 PM
[2020-01-13 20:20] LABS: Partial Thromboplastin Ratio 0.8; Partial Thromboplastin Time 22.5 Seconds (21.0-31.0); Prothrombin Time 10.9 Seconds (9.0-12.0)
[2020-01-13 20:23] LABS: Hematocrit (blood only) 40.2 % (42-52); Hemoglobin 13.9 g/dL (14.0-18.0); Mean Corpuscular Hemoglobin 30.3 pg (25-34); Mean Corpuscular Hgb Conc 34.6 g/dL (32-36); Mean Corpuscular Volume 87.8 fL (80-100); Mean Platelet Volume 10.7 fL (7.4-10.4); Platelet Count 275 K/uL (130-400); RDW Coefficient of Variation 15.8 % (11.5-14.5); RDW Standard Deviation 49.8 fL (36.4-46.3); Red Blood Count 4.58 M/uL (4.7-6.1); White Blood Count 32.76 K/uL (4.8-10.8)
[2020-01-13 20:24] LABS: iSTAT Creatinine 6.1 mg/dl (0.6-1.3); iSTAT Hemoglobin 13.6 g/dl (14.0-18.0); iSTAT Ionized Calcium 1.13 mmol/l (1.12-1.32); iSTAT Potassium 4.7 mmol/L (3.3-5.0)
[2020-01-13 20:29] LABS: Basophils # (auto) 0.02 K/uL (0-0.2); Basophils % (auto) 0.1 %; Eosinophils # (auto) 0.04 K/uL (0-0.5); Eosinophils % (auto) 0.1 %; Immature Granulocytes # (auto) 0.35 K/uL (0.00-0.02); Immature Granulocytes % (auto) 1.1 %; Lymphocytes # (auto) 1.22 K/uL (1.2-3.4); Lymphocytes % (auto) 3.7 %; Monocytes # (auto) 2.12 K/uL (0.11-0.59); Monocytes % (auto) 6.5 %; Neutrophils # (auto) 29.01 K/uL (1.4-6.5); Neutrophils % (auto) 88.5 %
[2020-01-13 20:40] LABS: Albumin Globulin Ratio 0.6 (0.9-2); Albumin Level 2.5 gm/dl (3.4-5.0); Bilirubin,Total 0.5 mg/dl (0.2-1); Calcium 9.1 mg/dl (8.5-10.1); Creatinine Clr Calc Pharmacy 12.2 ml/min; Est GFR (African American) 11.1; Est GFR (Non-African American) 9.6; Magnesium 2.8 mg/dl (1.8-2.4); Potassium 4.7 mmol/L (3.5-5.1); Total Protein 6.5 gm/dl (6.4-8.2)
[2020-01-13 20:41] LABS: BUN Creatinine Ratio 13.1 (10-20)
--- NOTE | 2020-01-13 21:11 | CT Scan Report ---
CT SCAN OF THE ABDOMEN AND PELVIS WITHOUT IV CONTRAST CLINICAL HISTORY: Nausea and vomiting. COMPARISON STUDY: Abdominal CT dated 05/04/2017. TECHNIQUE: CT scan of the abdomen and pelvis is performed from the lung bases to the proximal femora. Images are reviewed in the axial, sagittal, and coronal planes. IV contrast was not administered for this examination as per the referring clinician. Note that the examination was performed in signific antly suboptimal fashion without oral and IV contrast. The examination is also degraded by streak art ifact from the left arm which could not be elevated above the abdomen and by motion artifact. A dose lowering technique was utilized adhering to the principles of ALARA. CT DOSE: 662.77 mGy.cm FINDINGS: Lung bases: The heart is normal in size and without pericardial effusion. There are coronary artery c alcifications. Evaluation of the lung bases is degraded by motion artifact. The lung bases are clear noting bibasilar scarring/atelectasis. There is a small hiatal hernia. Liver: The unenhanced liver is normal in size, contour, and attenuation. There is no intrahepatic renetta iary ductal dilatation. Gallbladder: Unremarkable. Spleen: Normal in size and attenuation. Pancreas: The unenhanced pancreas is mildly atrophic. A calcified nodule is again seen either arising from or located adjacent to the pancreatic tail on image #124. This is unchanged from 2017. Adrenal glands: Unremarkable. Kidneys: The unenhanced kidneys demonstrate mild cortical atrophy and are without hydronephrosis. The re are least 2 nonobstructing left renal calculi which measure up to 6 mm. There is no evidence of co ntour deforming renal mass lesion. Abdominal vasculature: The abdominal aorta is normal in course and caliber. Bowel: There is no bowel obstruction. There is mild sigmoid diverticulosis without CT evidence of acu te diverticulitis. Question faint pericolonic infiltration. The appendix is not identified. Peritoneum: There is no intraperitoneal free air or abdominal ascites. There is a small fat-containin g umbilical hernia. Lymphadenopathy: None. Pelvic viscera: Evaluation of the pelvis is significantly degraded by streak artifact from bilateral hip arthroplasties. The prostate gland is surgically absent. The bladder is normal as imaged. Bilater al fat-containing inguinal hernias are noted. Skeletal structures: The skeletal structures are osteopenic. There is moderate to advanced lumbosacra l spondylosis and mild scoliosis. No lytic or blastic lesions are seen. Bilateral hip arthroplasties are in place. There are healed bilateral rib fractures. IMPRESSION: 1. Suboptimal examination without oral and IV contrast. The examination is also degraded by streak an d motion artifact. 2. Questioned faint pericolonic infiltration. Correlate clinically for evidence of a mild nonspecific colitis. 3. Left-sided nephrolithiasis. 4. Additional findings as above. ACT 112: Negative or not required by law. Electronically signed by: Jake Morocho M.D. 01/13/2020 9:09 PM
[2020-01-13] MEDS ORDERED: RASPBERRY SYRUP 5 ML UDP PO STA (21:13)
[2020-01-13] MEDS ORDERED: VANCOMYCIN HCL 125 MG/2.5ML SOLN PO STA (21:13)
[2020-01-13] MEDS ORDERED: SODIUM CHLORIDE 0.9% 1000ML 1,000 ML IV ONE (21:23)
[2020-01-13 21:34] LABS: Appearance Urine Turbid (Clear); Bacteria Urine Automated Negative (Negative); Blood Urine 3+ (Negative); Color Urine Dark Yellow; Epithelial Cell Urine Auto 20-30 /lpf (0-5); Glucose Urine UA Negative (Negative); Ketones Urine Trace (Negative); Leukocyte Esterase Urine Trace (Negative); Nitrite Urine Negative (Negative); Protein Urine 3+ (Negative); RBC Urine Automated 0-4 /hpf (0-4); Specific Gravity Urine 1.026 (1.000-1.030); Urobilinogen Urine Negative (Negative)
[2020-01-13 21:44] LABS: Bilirubin Urine Negative (Negative); Ictotest Urine Negative (Negative)
--- NOTE | 2020-01-13 22:35 | Emergency Department Note ---
ED Visit Note Patient went into A. fib with RVR. Heart rate into the 140s. Patient was admitted to the hospitalist service. EKG #3 A. fib RVR rate of 143 Left axis Inferior Q waves ST depressions in the lateral leads Patient notes he is fairly comfortable. I discussed with the hospitalist as the patient was already admitted to his service. He will place additional orders for rate control medications. . : Sepsis Qualifiers: Sepsis type: sepsis due to unspecified organism Sepsis acute organ dysfunction status: unspecified Qualified Code(s): A41.9 - Sepsis, unspecified organism Acute renal failure Qualifiers: Acute renal failure type: unspecified Qualified Code(s): N17.9 - Acute kidney failure, unspecified
[2020-01-13] MEDS ORDERED: dilTIAZem HCl 5 MG/ML 5 ML VIAL IV STA (22:36)
[2020-01-13] MEDS ORDERED: STAT IV Infusion **Titration per Protocol STA (22:36)
[2020-01-13] MEDS ORDERED: dilTIAZem HCL 125 MG in DEXTROSE 5% 100 ML IV SCH (22:45)
[2020-01-13] MEDS ORDERED: SODIUM CHLORIDE 0.9% 500 ML IV SCH (23:00)
[2020-01-13] MEDS ORDERED: ACETAMINOPHEN 325 MG TAB PO PRN (23:27)
[2020-01-13] MEDS ORDERED: ONDANSETRON INJ 2 MG/ML 2 ML VIAL IV PRN (23:27)
[2020-01-13] MEDS ORDERED: NITROGLYCERIN SL 0.4 MG/TAB TAB SL PRN (23:27)
[2020-01-14] LABS: Troponin I 0.035 ng/ml (0-0.045)
[2020-01-14] MEDS: SODIUM CHLORIDE 0.9% 1000ML 1,000 ML IV SCH ×3 (00:15→17:09)
--- NOTE | 2020-01-14 00:28 | History and Physical Report ---
DATE OF ADMISSION: 01/13/2020 CHIEF COMPLAINT: Abnormal labs, acute kidney injury. HISTORY OF PRESENT ILLNESS: This is a 74-year-old male with past medical history significant for atrial premature beats, hypertension, history of dementia, anemia, rheumatoid arthritis, depression, history of prostate cancer, history of hemorrhagic stroke with left sided weakness, pulmonary nodules, who lives with his , used to ambulate with a walker, he was brought to the hospital on 12/19/2019 for frequent falls and at that time he also had left orbital floor fracture treated with antibiotics and he is also treated for the left lower lobe pneumonia with p.o. Levaquin and was discharged to [facility]. In [facility] was found to have C. diff and put on p.o. vancomycin, . 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 LP was performed with [facility]. He has supposed to followup with [facility]. The patient about a month before used to walk with a walker, currently is wheelchair bound and also is on diapers as per the outpatient notes and also requiring lot of care at home. Also having difficultly swallowing. and he is currently is on the ground and moist diet. Drinks water with a straw but is not eating much as per the and not drinking much and he went to family doctor today and labs done showed CARLA and elevated white count, was referred here. His white count is 32.7 and his creatinine is 5.3. Baseline is Cr around 0.9. Otherwise the patient resting comfortably and hemodynamically stable. Denies any pain. He denies any nausea, vomiting. No abdominal pain. Denies any headache, no cough, no shortness of breath, no chest pain. No rash. He has dementia, was alert and awake and oriented to name and place and could tell the year, but denies any other complaints. He is not sure exactly why he is in the hospital, but he denies any diarrhea. When checked with the she states since yesterday he did not move his bowels. He is having difficulty swallowing food, but he is able to take pills when the pills are crushed. ALLERGIES: No known drug allergies. PAST MEDICAL HISTORY: As mentioned above. PAST SURGICAL HISTORY: Colonoscopy, EGDs, lumbar hemilaminectomy, radical prostate removal, left shoulder reconstruction surgery, left and right hip replacement surgeries. MEDICATIONS: The patient currently on atorvastatin 10 mg at bedtime, Zyrtec 10 mg p.o. a.m., folic acid 2 mg at bedtime, hydrochlorothiazide 12.5 mg p.o. a.m., methotrexate as directed, metoprolol 12.5 mg p.o. b.i.d., potassium chloride 20 mEq p.o. b.i.d., prednisone 5 mg p.o. daily, trazodone 150 mg p.o. at bedtime, vancomycin 125 mg p.o. q.i.d. venlafaxine 37.5 mg p.o. q.a.m. FAMILY HISTORY: Significant for daughter has breast cancer. Mother has breast cancer. Sister has colon cancer. Father has renal history. SOCIAL HISTORY: . Former smoker, quit in 1984, smoke for 40 years. No alcohol use, no drug use. REVIEW OF SYMPTOMS: The patient has some dementia. Complete review of symptoms as per HPI. PHYSICAL EXAMINATION: GENERAL: The patient is alert and oriented to name and place, could tell the year, not the date, not in acute distress. VITAL SIGNS: Temperature 36.6, pulse 98, respiratory rate 18, blood pressure 103/64, oxygen 98% room air. HEENT: No pallor, no icterus. Pupils equal, round, reactive to light. NECK: No JVD, no neck masses. Supple. CARDIOVASCULAR: S1, S2 heard, regular rate and rhythm, no murmur, no gallop. RESPIRATORY SYSTEM: Normal AP diameter. No accessory muscle use. No wheezing, no crackles. ABDOMEN: Soft, bowel sounds present, nontender. No distention. CENTRAL NERVOUS SYSTEM: Alert and awake and oriented to name and place, can tell current year, and could tell his date of , obeys simple commands. Moves extremities. EXTREMITIES: No edema, no erythema. LABORATORY DATA: WBC 32.7, hemoglobin 13.9, hematocrit 40.2, platelets 275. PT 10.9, INR 1, APTT 22.5. Sodium 134, potassium 4.7, chloride 101, bicarbonate 23, BUN 68, creatinine 5.3, serum glucose 101, lactate 1.8, calcium 9.1, magnesium 2.8, total bilirubin 0.5, AST 82, ALT 50, alkaline phosphatase 82. Urinalysis, +3 protein, trace ketones, 3+ blood. IMAGING: Chest x-ray: Cardiomegaly with no acute cardiopulmonary abnormality. CT of the abdomen and pelvis, suboptimal examination without oral and IV contrast. Questionable faint pericolonic infiltration, correlate clinically for evidence of mild nonspecific colitis. Left-sided nephrolithiasis. EKG sinus tachycardia at 104, left axis deviation, nonspecific ST abnormality, no significant change was found. ASSESSMENT AND PLAN: This is a 74-year-old male who presents with acute kidney injury. 1. Acute kidney injury most likely secondary to his ongoing C. diff diarrhea and also poor oral intake because of his swallowing problems . Has some dysphagia since his hemorrhagic stroke (2017) which is getting worse. His recent MRI scan also showed rheumatoid meningitis. His creatinine at baseline is 0.9, presently with creatinine of 5.3. We will placed him on IV fluids, IV normal saline 125 mL per hour. There is no anion gap acidosis. Electrolytes are okay. We will follow the repeat labs in a.m. and also get a nephrology consult in a.m. for further recommendations. Monitor in tele floor. 2. Leukocytosis, mostly from C. diff colitis. CT of abdomen and pelvis shows nonspecific colitis, mostly from C. diff. As per the , diarrhea stopped yesterday. Would continue p.o. vancomycin syrup, and also ER ordered urine and blood culture, which we will follow and follow the labs. 3. History of rheumatoid arthritis, will hold methotrexate while getting treated for C. diff. Continue 5 mg prednisone for now. 4. Sleep apnea on BiPAP at bedtime? as per previous discharge summary. 5. History of nonsustained ventricular tachycardia. We will monitor. 6. Hypertension, on Lopressor. We will hold hydrochlorothiazide. 7. History of pulmonary nodules: Needs followup. 8. CVA, history of hemorrhagic stroke with residual left-sided weakness. pt/ot, speech evaluation.NEUROLOGY AND RHEUMATOLOGY FOLLOWUP FOR RHEUMATOID MENINGITIS 9. Dementia, oriented to person and place. Will monitor for any delirium. 10. Deep venous thrombosis prophylaxis, sequential compression devices for now. 11. Disposition: Closely monitor in the tele floor. Level 1 full code as per my discussion with the . PT and OT prior to discharge. Social Service to help with discharge planning. ADDENDUM: PATIENT WENT INTO RAPID A FIB. STARTED ON IV CARDIZEM DRIP AND LOW DOSE IV HEPARIN. CARDIAC ENZYMES AND ECHO. CARDIOLOGY CONSULT. THAI MASSEUR ANTICOAGULATION PER CARDIOLOGY . HX OF HEMORRHAGIC STROKE. MTDD
[2020-01-14] MEDS ORDERED: Heparin IV Low Dose *NO* Bolus ONE (00:38)
[2020-01-14] MEDS ORDERED: HEPARIN SODIUM/DEXTROSE 25,000 UNITS/500 ML BAG IV SCH (00:45)
[2020-01-14] MEDS: RASPBERRY SYRUP 5 ML UDP PO SCH ×3 (05:47→17:09)
[2020-01-14] MEDS: VANCOMYCIN HCL 125 MG/2.5ML SOLN PO SCH ×3 (05:48→17:09)
[2020-01-14 06:26] LABS: Hematocrit (blood only) 35.9 % (42-52); Hemoglobin 12.1 g/dL (14.0-18.0); Mean Corpuscular Hemoglobin 30.1 pg (25-34); Mean Corpuscular Hgb Conc 33.7 g/dL (32-36); Mean Corpuscular Volume 89.3 fL (80-100); Mean Platelet Volume 10.2 fL (7.4-10.4); Platelet Count 233 K/uL (130-400); RDW Coefficient of Variation 15.6 % (11.5-14.5); RDW Standard Deviation 50.4 fL (36.4-46.3); Red Blood Count 4.02 M/uL (4.7-6.1); White Blood Count 24.86 K/uL (4.8-10.8)
[2020-01-14 06:47] LABS: ALC (manual) 0.42 K/uL (1.2-3.4); ANC (manual) 24.44 K/uL (1.4-6.5); Lymphocytes # (manual) 0.42 K/uL (1.2-3.4); Lymphocytes % (manual) 1.7 %; Neutrophils # (manual) 24.44 K/uL (1.4-6.5); Neutrophils % (manual) 98.3 %
[2020-01-14] MEDS ORDERED: PERFLUTREN LIPID MICROSPHERE (DEFINITY) IV ONE (07:02)
[2020-01-14 07:06] LABS: BUN Creatinine Ratio 16.9 (10-20); Calcium 7.7 mg/dl (8.5-10.1); Creatinine Clr Calc Pharmacy 17.7 ml/min; Est GFR (African American) 17.5; Est GFR (Non-African American) 15.1; Magnesium 2.4 mg/dl (1.8-2.4); Potassium 4.8 mmol/L (3.5-5.1)
[2020-01-14 07:09] LABS: Troponin I 0.049 ng/ml (0-0.045)
--- NOTE | 2020-01-14 07:44 | Gastrointestinal Consultation ---
Date of Consultation January 14, 2020 Assessment & Plan (1) Acute renal failure: 74 year old male admitted with abnormal labs, leukocytosis, CARLA, [employer] this AM improved from 5.3 --> 3.7 thought secondary to ongoing diarrhea, poor PO intake. CT w/ ? mild colitis, previous stool for c.diff positive on PO vancomycin Would continue to treat given reported positive c.diff prior to arrival Request records from [facility] Vancomycin 125 mg QID for full 14 day course Will await phone call return to assist in history Thank you for allowing us to participate in the care of this patient. Please call with any acute changes, questions or concerns. Please see addendum below with additional recommendation from my supervising physician. Supervising Physician Co-Signing Physician Notes I have seen and discussed patient with CHALINO Mtz. He rnote reflects our findings and plan. C diff being treated and patient having formed stools. Would complete course of oral vanco as outlined. History of Present Illness Reason for Consultation: c.diff, diarrhea Requesting Physician: Fernando Attending Physician: Ailyn King MD History of Present Illness 74 year old male with history of dementia, RA, depression, history of prostate cancer, history of hemorrhagic stroke with left sided weakness, pulmonary nodules, who lives with his , used to ambulate with a walker, he was brought to the hospital on 12/19/2019 for frequent falls and at that time he also had left orbital floor fracture treated with antibiotics and he is also treated for the left lower lobe pneumonia with p.o. Levaquin and was discharged to [facility]. In [facility] was found to have C. diff and put on p.o. vancomycin, admitted through the ED for abnormal labs from PCP appointment yesterday. GI aksed to evaluate for c.diff. Pt was seen and evaluated, chart reviewed. He is a poor historian. I tried to call . No answer. He is unable to verbalized to me how often his bowels are moving but suggests stools remain loose. Last documented BM was 01/13/20 last evening. He denies black/bloody stools. No abd pain. No nausea/vomiting. CTAP 2019: Questioned faint pericolonic infiltration. Correlate clinically for evidence of a mild nonspecific colitis. Left-sided nephrolithiasis. Allergies Allergy/AdvReac Type Severity Reaction Status Date / Time No Known Allergies Allergy NONE Verified 01/13/20 20:33 Home Medications Home Medications Medication Instructions Recorded Confirmed Type folic acid 2 mg PO HS 07/03/18 01/13/20 History methotrexate sodium 5 mg PO .BIDQMON 07/03/18 01/13/20 History trazodone 150 mg PO HS 07/03/18 01/13/20 History atorvastatin 10 mg PO HS 04/05/19 01/13/20 History cetirizine [Zyrtec] 10 mg PO QAM 12/16/19 01/13/20 History venlafaxine 37.5 mg PO QAM 12/16/19 01/13/20 History prednisone 5 mg PO DAILY 12/19/19 01/13/20 History hydrochlorothiazide 12.5 mg PO QAM 01/13/20 01/13/20 History metoprolol tartrate 12.5 mg PO BID 01/13/20 01/13/20 History potassium chloride [Klor-Con M20] 20 meq PO BID 01/13/20 01/13/20 History vancomycin [Vancocin] 125 mg PO QID 01/13/20 01/13/20 History Patient History Medical History (Updated 01/13/20 @ 21:21 by Singh Swenson DO) Abnormal brain MRI Abnormal brain MRI Anemia Anxiety Cerebrovascular disease Depression Hearing deficit Hypertension Prostate CA 1999--SX, NO CHEMO/RADIATION Pulmonary nodules two 9 mm pulm nodules right lung CT 12/21/19 f/u 3-4 mos Rheumatoid arthritis Stroke 05/2017--LEFT SIDE WEAKNESS Surgical History H/O abdominal surgery 05/2017--FEEDING TUBE PLACED THEN REMOVED (07/2017) H/O prostate biopsy 1999--MALIGNANT H/O prostate[place] [facility] [place] of appendectomy History of arthroscopy of left shoulder History of colonoscopy History of left hip replacement History of lumbar fusion X2---NORMAL ROM History of right hip replacement History of tonsillectomy Social History Preferred Language: Rwand[place] Communication Ability: Impaired Pediatric Psychologist Required: No Beliefs That Will Affect Care: None marital status: Current Living Situation: Spouse current occupational status: employed Other Information That Helps Us Care for You: No Feels Safe at Home: Yes Safety Concerns: Feels Safe At This Time Smoking Status: Unknown if ever smoked Hx Alcohol Use: No Hx Substance Use: No Results & Data ([facility]) Vital Signs (Past 12 Hours) Vital Signs Temp Pulse Pulse Resp BP BP Pulse Ox 01/14/20 05:54 97 H 103/65 01/14/20 04:30 96 H 88/53 L 01/14/20 04:09 36.6 C 90 19 85/56 L 93 01/14/20 01:19 112 H 96/54 L 01/14/20 00:31 140 H 91/54 L 01/14/20 00:00 140 H 01/13/20 23:28 36.6 C 120 H 105/68 91 01/13/20 23:27 01/13/20 22:53 36.6 C 74 18 98 01/13/20 22:33 126 H 115/47 L 01/13/20 22:04 98 H 103/64 01/13/20 21:30 95 H 109/66 01/13/20 20:51 96 H 91/61 L 01/13/20 20:18 112 H 96/68 L Pulse Ox 01/14/20 05:54 01/14/20 04:30 01/14/20 04:09 01/14/20 01:19 01/14/20 00:31 01/14/20 00:00 01/13/20 23:28 01/13/20 23:27 91 01/13/20 22:53 01/13/20 22:33 01/13/20 22:04 01/13/20 21:30 01/13/20 20:51 01/13/20 20:18 Laboratory Results 01/14/20 01/14/20 01/13/20 Range/Units 05:30 05:30 21:15 WBC 24.86 H (4.8-10.8) K/uL RBC 4.02 L (4.7-6.1) M/uL Hgb 12.1 L (14.0-18.0) g/dL POC Hgb (14.0-18.0) g/dl Hct 35.9 L (42-52) % POC Hct (42-52) % MCV 89.3 (80-100) fL MCH 30.1 (25-34) pg MCHC 33.7 (32-36) g/dL RDW Std Deviation 50.4 H (36.4-46.3) fL RDW Coeff of Monserrat 15.6 H (11.5-14.5) % Plt Count 233 (130-400) K/uL MPV 10.2 (7.4-10.4) fL Immature Gran % (Auto) % Neut % (Auto) % Lymph % (Auto) % Mathews % (Auto) % Eos % (Auto) % Baso % (Auto) % Immature Gran # (Auto) (0.00-0.02) K/uL Neut # (Auto) (1.4-6.5) K/uL Lymph # (Auto) (1.2-3.4) K/uL Mathews # (Auto) (0.11-0.59) K/uL Eos # (Auto) (0-0.5) K/uL Baso # (Auto) (0-0.2) K/uL Neutrophils % (Manual) 98.3 % Lymphocytes % (Manual) 1.7 % Neutrophils # (Manual) 24.44 H (1.4-6.5) K/uL Total Absolute Neuts 24.44 H (1.4-6.5) K/uL Lymphocytes # (Manual) 0.42 L (1.2-3.4) K/uL Total Abs Lymphocytes 0.42 L (1.2-3.4) K/uL Blood Smear Review PT (9.0-12.0) Seconds INR (0.9-1.1) APTT (21.0-31.0) Seconds PTT Ratio POC Sodium (135-144) mmol/L Sodium 141 D (136-145) mmol/L POC Potassium (3.3-5.0) mmol/L Potassium 4.8 (3.5-5.1) mmol/L POC Chloride (101-112) mmol/L Chloride 112 H (98-107) mmol/L Carbon Dioxide 22 (21-32) mmol/L POC Total CO2 (24-31) mEq/l Anion Gap 7.0 (3-11) POC Anion Gap (16-25) mmol/L POC BUN (7-18) mg/dl BUN 62 H (7-18) mg/dl Creatinine 3.67 H D (0.6-1.4) mg/dl POC Creatinine (0.6-1.3) mg/dl Est Cr Clr Drug Dosing 17.7 ml/min Est GFR ( Amer) 17.5 Est GFR (Non-Af Amer) 15.1 BUN/Creatinine Ratio 16.9 (10-20) Glucose 80 (70-99) mg/dl POC Glucose (other) (70-99) mg/dl Lactate (0.4-2.0) mmol/L Calcium 7.7 L D (8.5-10.1) mg/dl POC Ioniz Calcium Juancarlos (1.12-1.32) mmol/l Magnesium 2.4 (1.8-2.4) mg/dl Total Bilirubin (0.2-1) mg/dl AST (15-37) U/L ALT (12-78) U/L Alkaline Phosphatase (45-117) U/L Troponin I 0.049 H* (0-0.045) ng/ml Total Protein (6.4-8.2) gm/dl Albumin (3.4-5.0) gm/dl Globulin (2.5-4.0) gm/dl Albumin/Globulin Ratio (0.9-2) Urine Color Dark Yellow Urine Appearance Turbid A (Clear) Urine pH 5.0 (4.5-7.5) Ur Specific [place] 1.026 (1.000-1.030) Urine Protein 3+ H (Negative) Urine Glucose (UA) Negative (Negative) Urine Ketones Trace H (Negative) Urine Blood 3+ H (Negative) Urine Nitrite Negative (Negative) Urine Bilirubin Negative (Negative) Urine Urobilinogen Negative (Negative) Ur Leukocyte Esterase Trace H (Negative) Urine WBC (Auto) 5-10 H (0-5) /hpf Urine RBC (Auto) 0-4 (0-4) /hpf U Hyaline Cast (Auto) 5-10 H (0-5) /lpf U Epithel Cells (Auto) 20-30 H (0-5) /lpf Urine Bacteria (Auto) Negative (Negative) Granular Casts 5-10 H (0) /lpf Urine Yeast Not Reportable 01/13/20 01/13/20 01/13/20 Range/Units 20:10 19:59 19:59 WBC (4.8-10.8) K/uL RBC (4.7-6.1) M/uL Hgb (14.0-18.0) g/dL POC Hgb 13.6 L (14.0-18.0) g/dl Hct (42-52) % POC Hct 40 L (42-52) % MCV (80-100) fL MCH (25-34) pg MCHC (32-36) g/dL RDW Std Deviation (36.4-46.3) fL RDW Coeff of Monserrat (11.5-14.5) % Plt Count (130-400) K/uL MPV (7.4-10.4) fL Immature Gran % (Auto) % Neut % (Auto) % Lymph % (Auto) % Mathews % (Auto) % Eos % (Auto) % Baso % (Auto) % Immature Gran # (Auto) (0.00-0.02) K/uL Neut # (Auto) (1.4-6.5) K/uL Lymph # (Auto) (1.2-3.4) K/uL Mathews # (Auto) (0.11-0.59) K/uL Eos # (Auto) (0-0.5) K/uL Baso # (Auto) (0-0.2) K/uL Neutrophils % (Manual) % Lymphocytes % (Manual) % Neutrophils # (Manual) (1.4-6.5) K/uL Total Absolute Neuts (1.4-6.5) K/uL Lymphocytes # (Manual) (1.2-3.4) K/uL Total Abs Lymphocytes (1.2-3.4) K/uL Blood Smear Review PT (9.0-12.0) Seconds INR (0.9-1.1) APTT (21.0-31.0) Seconds PTT Ratio POC Sodium 133 L (135-144) mmol/L Sodium 134 L (136-145) mmol/L POC Potassium 4.7 (3.3-5.0) mmol/L Potassium 4.7 (3.5-5.1) mmol/L POC Chloride 100 L (101-112) mmol/L Chloride 101 (98-107) mmol/L Carbon Dioxide 23 (21-32) mmol/L POC Total CO2 24 (24-31) mEq/l Anion Gap 10.0 (3-11) POC Anion Gap 15.0 L (16-25) mmol/L POC BUN 62 H (7-18) mg/dl BUN 68 H (7-18) mg/dl Creatinine 5.34 H* (0.6-1.4) mg/dl POC Creatinine 6.1 H* (0.6-1.3) mg/dl Est Cr Clr Drug Dosing 12.2 ml/min Est GFR ( Amer) 11.1 Est GFR (Non-Af Amer) 9.6 BUN/Creatinine Ratio 13.1 (10-20) Glucose 101 H (70-99) mg/dl POC Glucose (other) 101 H (70-99) mg/dl Lactate 1.8 (0.4-2.0) mmol/L Calcium 9.1 (8.5-10.1) mg/dl POC Ioniz Calcium Juancarlos 1.13 (1.12-1.32) mmol/l Magnesium 2.8 H (1.8-2.4) mg/dl Total Bilirubin 0.5 (0.2-1) mg/dl AST 82 H (15-37) U/L ALT 50 (12-78) U/L Alkaline Phosphatase 82 (45-117) U/L Troponin I 0.035 (0-0.045) ng/ml Total Protein 6.5 (6.4-8.2) gm/dl Albumin 2.5 L (3.4-5.0) gm/dl Globulin 4.0 (2.5-4.0) gm/dl Albumin/Globulin Ratio 0.6 L (0.9-2) Urine Color Urine Appearance (Clear) Urine pH (4.5-7.5) Ur Specific [place] (1.000-1.030) Urine Protein (Negative) Urine Glucose (UA) (Negative) Urine Ketones (Negative) Urine Blood (Negative) Urine Nitrite (Negative) Urine Bilirubin (Negative) Urine Urobilinogen (Negative) Ur Leukocyte Esterase (Negative) Urine WBC (Auto) (0-5) /hpf Urine RBC (Auto) (0-4) /hpf U Hyaline Cast (Auto) (0-5) /lpf U Epithel Cells (Auto) (0-5) /lpf Urine Bacteria (Auto) (Negative) Granular Casts (0) /lpf Urine Yeast 01/13/20 01/13/20 Range/Units 19:59 19:59 WBC 32.76 H* (4.8-10.8) K/uL RBC 4.58 L (4.7-6.1) M/uL Hgb 13.9 L (14.0-18.0) g/dL POC Hgb (14.0-18.0) g/dl Hct 40.2 L (42-52) % POC Hct (42-52) % MCV 87.8 (80-100) fL MCH 30.3 (25-34) pg MCHC 34.6 (32-36) g/dL RDW Std Deviation 49.8 H (36.4-46.3) fL RDW Coeff of Monserrat 15.8 H (11.5-14.5) % Plt Count 275 (130-400) K/uL MPV 10.7 H (7.4-10.4) fL Immature Gran % (Auto) 1.1 % Neut % (Auto) 88.5 % Lymph % (Auto) 3.7 % Mathews % (Auto) 6.5 % Eos % (Auto) 0.1 % Baso % (Auto) 0.1 % Immature Gran # (Auto) 0.35 H (0.00-0.02) K/uL Neut # (Auto) 29.01 H (1.4-6.5) K/uL Lymph # (Auto) 1.22 (1.2-3.4) K/uL Mathews # (Auto) 2.12 H (0.11-0.59) K/uL Eos # (Auto) 0.04 (0-0.5) K/uL Baso # (Auto) 0.02 (0-0.2) K/uL Neutrophils % (Manual) % Lymphocytes % (Manual) % Neutrophils # (Manual) (1.4-6.5) K/uL Total Absolute Neuts (1.4-6.5) K/uL Lymphocytes # (Manual) (1.2-3.4) K/uL Total Abs Lymphocytes (1.2-3.4) K/uL Blood Smear Review Cancelled PT 10.9 (9.0-12.0) Seconds INR 1.0 (0.9-1.1) APTT 22.5 (21.0-31.0) Seconds PTT Ratio 0.8 POC Sodium (135-144) mmol/L Sodium (136-145) mmol/L POC Potassium (3.3-5.0) mmol/L Potassium (3.5-5.1) mmol/L POC Chloride (101-112) mmol/L Chloride (98-107) mmol/L Carbon Dioxide (21-32) mmol/L POC Total CO2 (24-31) mEq/l Anion Gap (3-11) POC Anion Gap (16-25) mmol/L POC BUN (7-18) mg/dl BUN (7-18) mg/dl Creatinine (0.6-1.4) mg/dl POC Creatinine (0.6-1.3) mg/dl Est Cr Clr Drug Dosing ml/min Est GFR ( Amer) Est GFR (Non-Af Amer) BUN/Creatinine Ratio (10-20) Glucose (70-99) mg/dl POC Glucose (other) (70-99) mg/dl Lactate (0.4-2.0) mmol/L Calcium (8.5-10.1) mg/dl POC Ioniz Calcium Juancalros (1.12-1.32) mmol/l Magnesium (1.8-2.4) mg/dl Total Bilirubin (0.2-1) mg/dl AST (15-37) U/L ALT (12-78) U/L Alkaline Phosphatase (45-117) U/L Troponin I (0-0.045) ng/ml Total Protein (6.4-8.2) gm/dl Albumin (3.4-5.0) gm/dl Globulin (2.5-4.0) gm/dl Albumin/Globulin Ratio (0.9-2) Urine Color Urine Appearance (Clear) Urine pH (4.5-7.5) Ur Specific [place] (1.000-1.030) Urine Protein (Negative) Urine Glucose (UA) (Negative) Urine Ketones (Negative) Urine Blood (Negative) Urine Nitrite (Negative) Urine Bilirubin (Negative) Urine Urobilinogen (Negative) Ur Leukocyte Esterase (Negative) Urine WBC (Auto) (0-5) /hpf Urine RBC (Auto) (0-4) /hpf U Hyaline Cast (Auto) (0-5) /lpf U Epithel Cells (Auto) (0-5) /lpf Urine Bacteria (Auto) (Negative) Granular Casts (0) /lpf Urine Yeast (1) Acute renal failure Acute renal failure type: unspecified Qualified Code(s): N17.9 - Acute kidney failure, unspecified
[2020-01-14 08:23] LABS: Partial Thromboplastin Ratio 1.4; Partial Thromboplastin Time 39.2 Seconds (21.0-31.0)
[2020-01-14] MEDS: VENLAFAXINE HCL XR 37.5 MG CAPXR PO SCH (08:46)
[2020-01-14] MEDS: METOPROLOL TARTRATE 25 MG TAB PO SCH ×2 (08:46→21:31)
[2020-01-14] MEDS: CETIRIZINE HCL 10 MG TABLET PO SCH (08:46)
[2020-01-14] MEDS: predniSONE 5 MG TAB PO SCH (08:46)
[2020-01-14] MEDS ORDERED: HEPARIN IV BOLUS 4,500 UNITS in SYRINGE 0 ML IV ONE (08:50)
--- NOTE | 2020-01-14 11:25 | Ultrasound Report ---
US renal/blad retro comp CLINICAL HISTORY: 74 years-old Male presenting with nia. TECHNIQUE: Real-time grayscale and limited color Doppler ultrasound imaging of the kidneys and bladde r was performed. COMPARISON: CT from 01/13/2020. FINDINGS: Right kidney: Normal echogenicity of renal parenchyma though cortical thinning is suggested. Right ki dney measures 11.4 cm. No hydronephrosis. Trace perinephric fluid. Left kidney: Normal echogenicity of renal parenchyma though cortical thinning is suggested, which is more severe than on the right. Left kidney measures 11.9 cm. No hydronephrosis. 8 mm hyperechogenic f ocus at the lower pole with twinkling artifact and posterior shadowing consistent with calculus. Bladder: Decompressed with a Collins catheter. Bilateral ureteral jets not visualized. Other: None. IMPRESSION: 1. Cortical thinning may suggest chronic medical renal disease. This is greater on the left. 2. Left nephrolithiasis. 3. No hydronephrosis. ACT 112: Negative or not required by law. Electronically signed by: Brian Mar M.D. 01/14/2020 11:24 AM
--- NOTE | 2020-01-14 11:59 | Hospitalist Progress Note ---
Date of Service January 14, 2020 Assessment & Plan (1) Sepsis: Sepsis POA secondary to C. difficile colitis Met the criteria of sepsis on admission with leukocytosis, hypotension and tachycardia Has been on oral vancomycin Clinically better (2) C. difficile colitis: Has been diagnosed with C. difficile colitis before admission Received antibiotic prior to the diagnosis of C. difficile colitis Has been getting oral vancomycin Appreciate GI input and recommendation (3) Acute renal failure: Presented with acute kidney injury likely secondary to dehydration Renal ultrasound did not show any obstruction Has been getting intravenous fluid Nephrology consulted Clinically little bit better today (4) Atrial fibrillation: Level of atrial fibrillation with RVR Has been getting IV Cardizem and intravenous heparin Cardiology consulted Echo showed: No significant change compared with study of 10/07/2019, normal LV chamber size with moderate concentric LVH, EF of 50 to 55%, no segmental wall motion abnormalities, aortic valve sclerosis without stenosis and mild MR Troponin mildly elevated, doubt any ACS (5) Cerebrovascular disease: History of CVA with left hemiparesis No acute findings (6) Rheumatoid arthritis: History of remote arthritis with MRI findings of rheumatoid meningitis Letter praxis is on hold Continue with prednisone (7) Dementia: Has dementia without any acute delirium (8) Sleep apnea in adult: Continue BiPAP DVT prophylax Has been on heparin drip CODE STATUS Full Admission and Anticipated Discharge Date Admission Date: January 13, 2020 Subjective The patient was seen and examined in the telemetry unit He has dementia and seemed to be not in any distress He denies any symptoms Review of Systems Review of Systems: All systems reviewed and are unremarkable Neurologic: + generalized weakness Physical Exam Physical Exam: Lying in bed comfortably Constitutional: + thin; no acute distress and not ill appearing Eyes: PERRL, conjunctivae normal, anicteric sclerae ENMT: external ear and nose normal, oropharynx normal Neck: trachea midline, no thyromegaly Respiratory: normal respiratory effort; no respiratory distress Auscultation: lungs clear to auscultation bilaterally Cardiovascular: Rate/Rhythm: + tachycardic; + abnormal rate and + abnormal rhythm Gastrointestinal (Abdomen): Inspection/Auscultation: abdomen normal to inspection; abdomen not distended Musculoskeletal: No acute arthritis in any joint Neurologic: Alert and awake .has dementia .Has left-sided hemiparesis Results & Data Results & Data ([facility]) Vital Signs (Past 12 Hours) Vital Signs Temp Pulse Pulse Resp BP Pulse Ox 01/14/20 11:35 36.7 C 59 L 17 87/56 L 96 01/14/20 07:15 36.5 C 100 H 20 92/56 L 96 01/14/20 05:54 97 H 103/65 01/14/20 04:30 96 H 88/53 L 01/14/20 04:09 36.6 C 90 19 85/56 L 93 01/14/20 01:19 112 H 96/54 L 01/14/20 00:31 140 H 91/54 L 01/14/20 00:00 140 H Laboratory Results Short CBC 01/13/20 01/14/20 Range/Units 19:59 05:30 WBC 32.76 H* 24.86 H (4.8-10.8) K/uL Hgb 13.9 L 12.1 L (14.0-18.0) g/dL Hct 40.2 L 35.9 L (42-52) % Plt Count 275 233 (130-400) K/uL BMP 01/13/20 01/14/20 19:59 05:30 Sodium 134 L 141 D Potassium 4.7 4.8 Chloride 101 112 H Carbon Dioxide 23 22 BUN 68 H 62 H Creatinine 5.34 H* 3.67 H D Glucose 101 H 80 Calcium 9.1 7.7 L D Cardiac Enzymes 01/13/20 01/14/20 Range/Units 19:59 05:30 Troponin I 0.035 0.049 H* (0-0.045) ng/ml Liver Function 01/13/20 Range/Units 19:59 Total Bilirubin 0.5 (0.2-1) mg/dl AST 82 H (15-37) U/L ALT 50 (12-78) U/L Alkaline Phosphatase 82 (45-117) U/L Albumin 2.5 L (3.4-5.0) gm/dl Urine 01/13/20 Range/Units 21:15 Urine Color Dark Yellow Urine Appearance Turbid A (Clear) Urine pH 5.0 (4.5-7.5) Ur Specific [place] 1.026 (1.000-1.030) Urine Protein 3+ H (Negative) Urine Glucose (UA) Negative (Negative) Medications Administered Current Inpatient Medications Acetaminophen (Tylenol) 650 mg PO Q4H PRN PRN Reason: Pain or Fever Stop: 02/12/20 23:26 Last Admin: 01/14/20 02:08 Dose: 650 mg Documented by: Amiodarone HCl (Cordarone) 400 mg PO TIDM [facility] Stop: 02/13/20 11:59 Cetirizine HCl (Zyrtec) 10 mg PO QAM [facility] Stop: 02/13/20 08:59 Last Admin: 01/14/20 08:46 Dose: 10 mg Documented by: Folic Acid (Folvite) 2 mg PO [facility] Stop: 02/13/20 20:59 Diltiazem HCl 125 mg/ Dextrose 125 mls @ 5 mls/hr IV .Q24H [facility]; Protocol Stop: 02/12/20 22:44 Last Titration: 01/14/20 07:01 Dose: 5 mg/hr, 5 mls/hr Documented by: Sodium Chloride (Nss 1000ml) 1,000 mls @ 125 mls/hr IV .Q8H [facility] Stop: 02/13/20 00:59 Last Admin: 01/14/20 08:46 Dose: 125 mls/hr Documented by: Metoprolol Tartrate (Lopressor) 12.5 mg PO BID [facility] Stop: 02/13/20 08:59 Last Admin: 01/14/20 08:46 Dose: 12.5 mg Documented by: Nitroglycerin (Nitrostat) 0.4 mg SL UD PRN PRN Reason: Chest Pain Stop: 02/12/20 23:26 Ondansetron HCl (Zofran) 4 mg IV Q6H PRN PRN Reason: Nausea Stop: 02/12/20 23:26 Prednisone (Prednisone) 5 mg PO DAILY [facility] Stop: 02/13/20 08:59 Last Admin: 01/14/20 08:46 Dose: 5 mg Documented by: Raspberry (Raspberry) 5 ml PO Q6 [facility] Stop: 01/28/20 05:59 Last Admin: 01/14/20 05:47 Dose: 5 ml Documented by: Trazodone HCl (Desyrel) 150 mg PO [facility] Stop: 02/13/20 20:59 Vancomycin HCl (Vancomycin Hcl) 125 mg PO Q6 [facility] Stop: 01/24/20 05:59 Last Admin: 01/14/20 05:48 Dose: 125 mg Documented by: Venlafaxine HCl (Effexor Extended Release) 37.5 mg PO QAM [facility] Stop: 02/13/20 08:59 Last Admin: 01/14/20 08:46 Dose: 37.5 mg Documented by: (1) Acute renal failure Acute renal failure type: unspecified Qualified Code(s): N17.9 - Acute kidney failure, unspecified (2) Sepsis Sepsis acute organ dysfunction status: unspecified Sepsis type: sepsis due to unspecified organism Qualified Code(s): A41.9 - Sepsis, unspecified organism
[2020-01-14] MEDS: AMIODARONE 200 MG TAB PO SCH ×2 (12:05→17:09)
--- NOTE | 2020-01-14 13:36 | Cardiology Consultation ---
Date of Consultation January 14, 2020 Assessment & Plan (1) Atrial fibrillation with rapid ventricular response: Mr. Mccurdy spontaneously converted to normal sinus rhythm on his own. Given her inability to anticoagulate I believe the most prudent course of action at this point would be for rhythm control strategy and attempt to avoid the need for anticoagulation. To that end I will start him on amiodarone 400 mg p.o. 3 times a day now and likely discharge home on a lower dose. Patient should remain on telemetry monitoring overnight. (2) Acute renal failure: (3) Cerebrovascular disease: History of hemorrhagic CVA and resultant cognitive impairment. (4) Ambulatory dysfunction: Progressive. Recurrent falls including recent episode with an orbital fracture Likely not a long-term anticoagulation candidate (5) Abnormal brain MRI: Serial imaging has revealed dural enhancement, currently being followed by neurosurgery and rheumatology History of Present Illness Reason for Consultation: Atrial fibrillation with rapid ventricular response Requesting Physician: Dr. Arrington Attending Physician: Daniela Arrington MD History of Present Illness It was my pleasure to see Mr. Lucero in consultation today January 14, 2020. He is a very pleasant yet cognitively impaired 74-year-old gentleman who was previously seen by Dr. Bhatia of our cardiology practice. He presented to [facility] on with reports of progressive weakness following bouts of diarrhea and vomiting. After the patient's most recent hospitalization here at [facility] after a fall he was transferred to [facility] where he developed C. difficile and was started on p.o. vancomycin. His reports that the diarrhea has persisted and is now been suffering from vomiting as well and has become progressively weaker and weaker. Upon arrival emergency department he is found have a significant white count elevation along with significant acute renal failure. He was also found to be in A. fib with rapid ventricular response. He was admitted to telemetry after Cardizem drip was started along with heparin. He was also given IV fluids. Currently the patient is resting comfortably without any events reported overnight. Given the patient's mental state he is not able to participate in his history majority of history obtained through review of medical records. Allergies Allergy/AdvReac Type Severity Reaction Status Date / Time No Known Allergies Allergy NONE Verified 01/13/20 20:33 Home Medications Home Medications Medication Instructions Recorded Confirmed Type folic acid 2 mg PO HS 07/03/18 01/13/20 History methotrexate sodium 5 mg PO .BIDQMON 07/03/18 01/13/20 History trazodone 150 mg PO HS 07/03/18 01/13/20 History atorvastatin 10 mg PO HS 04/05/19 01/13/20 History cetirizine [Zyrtec] 10 mg PO QAM 12/16/19 01/13/20 History venlafaxine 37.5 mg PO QAM 12/16/19 01/13/20 History prednisone 5 mg PO DAILY 12/19/19 01/13/20 History hydrochlorothiazide 12.5 mg PO QAM 01/13/20 01/13/20 History metoprolol tartrate 12.5 mg PO BID 01/13/20 01/13/20 History potassium chloride [Klor-Con M20] 20 meq PO BID 01/13/20 01/13/20 History vancomycin [Vancocin] 125 mg PO QID 01/13/20 01/13/20 History Patient History Medical History Abnormal brain MRI Abnormal brain MRI Anemia Anxiety Cerebrovascular disease Depression Hearing deficit Hypertension Prostate CA 1999--SX, NO CHEMO/RADIATION Pulmonary nodules two 9 mm pulm nodules right lung CT 12/21/19 f/u 3-4 mos Rheumatoid arthritis Stroke 05/2017--LEFT SIDE WEAKNESS Surgical History H/O abdominal surgery 05/2017--FEEDING TUBE PLACED THEN REMOVED (07/2017) H/O prostate biopsy 1999--MALIGNANT H/[place] [facility] [place] History of appendectomy History of arthroscopy of left shoulder History of colonoscopy History of left hip replacement History of lumbar fusion X2---NORMAL ROM History of right hip replacement History of tonsillectomy Family History Sister Family hx of colon cancer Social History Preferred Language: [place] Citizen Communication Ability: Impaired Hitch Technician Required: No Beliefs That Will Affect Care: None marital status: Current Living Situation: Spouse current occupational status: employed Other Information That Helps Us Care for You: No Feels Safe at Home: Yes Safety Concerns: Feels Safe At This Time Smoking Status: Unknown if ever smoked Hx Alcohol Use: No Hx Substance Use: No Review of Systems Review of Systems: Unobtainable due to cognitive status Physical Exam Physical Exam: General: Awake, alert. No acute distress. HEENT: Normocephalic, atraumatic. Pupils equal, round and reactive to light and accommodation. Extraocular muscles are intact. Anicteric sclera. Moist mucous membranes. Neck: No JVD. No bruit. Cardiovascular: Regular. Positive S-4. Normal S-1 and S-2. No S-3. 3/6 holosystolic ejection murmur, left sternal border, mid-clavicular line with radiation to the axilla. No rubs. Pulmonary: Clear to auscultation bilaterally. No rales, rhonchi, or wheezing. Abdomen: Bowel sounds x 4, soft. No rebound, guarding or tenderness. No organomegaly. Extremities: No clubbing, cyanosis or edema. +2 pedal pulses bilaterally. Skin: Warm and dry. Results & Data ([facility]) Vital Signs (Past 12 Hours) Vital Signs Temp Pulse Resp BP Pulse Ox 01/14/20 12:04 96/58 L 01/14/20 11:35 36.7 C 59 L 17 87/56 L 96 01/14/20 07:15 36.5 C 100 H 20 92/56 L 96 01/14/20 05:54 97 H 103/65 01/14/20 04:30 96 H 88/53 L 01/14/20 04:09 36.6 C 90 19 85/56 L 93 (1) Acute renal failure Acute renal failure type: unspecified Qualified Code(s): N17.9 - Acute kidney failure, unspecified
--- NOTE | 2020-01-14 14:28 | Consultation Report ---
DATE OF CONSULTATION: 01/14/2020 NEPHROLOGY CONSULTATION NOTE----ARF HISTORY OF PRESENT ILLNESS: The patient is a 74-year-old male admitted with abnormal labs and acute renal failure. The patient presented to the hospital yesterday because of diarrhea. He was sent over from [facility]. The patient does have diarrhea. At this time, it is not possible to obtain a history from the patient. He has had significant recent health issues including recent treatment for C. diff with p.o. vancomycin. He had labs done, which was very abnormal with acute renal failure. Creatinine on admission was 5.3. He continues to have some diarrhea. He was also noted to have atrial fibrillation and has been placed on Cardizem. From renal standpoint, labs have improved. Creatinine was 5.34 on admission and now it is 3.67. Sodium is also better and is now normal. He is making urine and has made 1500 mL so far and has a Collins catheter. Vital signs also seem stable, although blood pressure is on the low side. PAST MEDICAL AND SURGICAL HISTORY: Includes history of atrial fibrillation, hypertension, dementia, chronic anemia, rheumatoid arthritis, depression, history of prostate cancer, history of hemorrhagic stroke with left-sided weakness, pulmonary nodules. REVIEW OF SYSTEMS: Unable to obtain. ALLERGIES: Reviewed. No known drug allergy. MEDICATIONS: Medications at home were reviewed in detail and takes atorvastatin, Zyrtec, folic acid, hydrochlorothiazide, methotrexate, metoprolol, potassium chloride, prednisone, trazodone, vancomycin. FAMILY HISTORY: Negative for renal disease or dialysis. SOCIAL HISTORY: . Former smoker, quit in 1984, smoked for 40 years. No alcohol, no drugs. Not able to obtain history at this time. Used to live with his , now currently at [facility]. PHYSICAL EXAMINATION: GENERAL: Elderly white male who appears awake and alert, but could not obtain any meaningful history from the patient. He did not answer any questions; however, he did have eyes open. VITAL SIGNS: Blood pressure 96/58, pulse rate 59, temperature 36.7, pulse rate 59 per minute, 96% on 2 liter nasal cannula. HEENT: Mucous membranes moist. NECK: Supple. No jugular venous distention. CHEST: Bilaterally clear to auscultation. CARDIOVASCULAR: S1 and S2 regular. ABDOMEN: Soft, nontender. EXTREMITIES: Show no edema. LABORATORY TESTS: Reviewed in detail. On admission, had a creatinine of 5.34. This morning is 3.67. He had a completely normal creatinine of 0.7 as of 12/25/2019. Hemoglobin 13.9 on admission, now it is 12.1. WBC count was very elevated at 32,000 on admission and is down to 24,000. ASSESSMENT AND PLAN: 1. A 74-year-old male with acute renal failure, prerenal type secondary to nausea, vomiting and diarrhea related with Clostridium difficile, acute renal failure. Renal function is getting better with increasing urine output. As long as we control the diarrhea and give him enough IV fluid and control his blood pressure and heart rate and oxygenation, we can expect to have continued improvement of his renal function. No further workup is needed. 2. Clostridium difficile as per primary service and gastrointestinal. [facility]
[2020-01-14] MEDS ORDERED: FOLIC ACID 1 MG TAB PO SCH (21:00)
[2020-01-14] MEDS: TRAZODONE HCL 50 MG TAB PO SCH (21:31)
[2020-01-15] MEDS: VANCOMYCIN HCL 125 MG/2.5ML SOLN PO SCH ×4 (00:09→16:26)
[2020-01-15] MEDS: SODIUM CHLORIDE 0.9% 1000ML 1,000 ML IV SCH ×4 (00:09→23:25)
[2020-01-15] MEDS: RASPBERRY SYRUP 5 ML UDP PO SCH ×4 (00:09→16:26)
[2020-01-15] MEDS: AMIODARONE 200 MG TAB PO SCH ×2 (07:55→16:26)
[2020-01-15] MEDS: predniSONE 5 MG TAB PO SCH (07:55)
[2020-01-15] MEDS: METOPROLOL TARTRATE 25 MG TAB PO SCH ×2 (07:55→21:36)
[2020-01-15] MEDS: VENLAFAXINE HCL XR 37.5 MG CAPXR PO SCH (07:55)
[2020-01-15] MEDS: CETIRIZINE HCL 10 MG TABLET PO SCH (07:56)
--- NOTE | 2020-01-15 08:34 | Gastroenterology Progress Note ---
Date of Service January 15, 2020 Assessment & Plan (1) Acute renal failure: 74 year old male admitted with abnormal labs, leukocytosis, CARLA, [facility] this AM improved from 5.3 --> 3.7 thought secondary to ongoing diarrhea, poor PO intake. CT w/ ? mild colitis, previous stool for c.diff positive on PO vancomycin Would continue to treat given reported positive c.diff prior to arrival [facility] records [facility] Vancomycin 125 mg QID for full 14 day course Can add questran 1 packet daily Will sign off. Thank you for allowing us to participate in the care of this patient. Please call with any acute changes, questions or concerns. Please see addendum below with additional recommendation from my supervising physician. Admission and Anticipated Discharge Date Admission Date: January 13, 2020 Supervising Physician Co-Signing Physician Notes Patient with a recent diagnosis of C. difficile diarrhea. Would recommend completion of a 14-day course of vancomycin. Unfortunately due to the patient's mentioned he is unable to give us any historical information. He did have a CT scan which showed some mild thickening in the distal colon. This most likely represents Inflammatory changes from the C. difficile. Perhaps the patient should have an outpatient colonoscopy in 3 to 4 months for follow-up if the family wishes. Recommendations Complete a 14-day course of vancomycin Outpatient colonoscopy in 3 to 4 months GI to sign off, please call with any questions or concerns Subjective Chart reviewed. Discussed with nursing. In attempt to conserve PPE, today visit consisted of a chart review. Persistent loose stools are now reported per nursing staff. No black or bloody stools. Last BM was overnight, around 2am. No stool yet this AM Results & Data ([facility]) Vital Signs (Past 12 Hours) Vital Signs Temp Pulse Pulse Resp BP BP Pulse Ox 01/15/20 07:48 36.6 C 49 L 18 118/79 94 01/15/20 02:27 36.4 C L 74 19 126/67 97 01/15/20 00:00 36.5 C 78 16 123/83 97 01/14/20 23:59 74 Laboratory Results 01/14/20 Range/Units 11:22 Troponin I 0.055 H* (0-0.045) ng/ml (1) Acute renal failure Acute renal failure type: unspecified Qualified Code(s): N17.9 - Acute kidney failure, unspecified
--- NOTE | 2020-01-15 09:20 | XRay Report ---
XR KUB/Abdomen 1 view CLINICAL HISTORY: history of c.diff NAUSEA AND VOMITING COMPARISON STUDY: CT scan dated 01/13/2020 FINDINGS: There is a lumbar dextroscoliosis. Degenerative changes are present within the lumbar spine . There are surgical clips in the pelvis. There are bilateral total hip arthroplasties. There is no p athologic bowel dilatation. There are no calcifications suspicious for urinary tract calculi. IMPRESSION: Nonobstructive bowel gas pattern. ACT 112: Negative or not required by law. Electronically signed by: Tahir Adrian M.D. 01/15/2020 9:18 AM
--- NOTE | 2020-01-15 09:53 | Communication Note ---
Date of Service: January 15, 2020 I reviewed the results of the abdominal x-ray from earlier today. There does not appear to be evidence of colonic dilation. Recommendations Continue vancomycin 4 times daily for 2 weeks Consider further evaluation for leukocytosis These call our service with any additional questions or concerns
[2020-01-15 10:43] LABS: Basophils # (auto) 0.01 K/uL (0-0.2); Basophils % (auto) 0.1 %; Eosinophils # (auto) 0.15 K/uL (0-0.5); Hematocrit (blood only) 36.5 % (42-52); Hemoglobin 12.3 g/dL (14.0-18.0); Immature Granulocytes # (auto) 0.12 K/uL (0.00-0.02); Immature Granulocytes % (auto) 0.8 %; Lymphocytes # (auto) 0.76 K/uL (1.2-3.4); Lymphocytes % (auto) 5.2 %; Mean Corpuscular Hgb Conc 33.7 g/dL (32-36); Mean Platelet Volume 10.2 fL (7.4-10.4); Monocytes # (auto) 0.45 K/uL (0.11-0.59); Monocytes % (auto) 3.1 %; Neutrophils # (auto) 13.13 K/uL (1.4-6.5); Neutrophils % (auto) 89.8 %; Platelet Count 190 K/uL (130-400); RDW Coefficient of Variation 15.5 % (11.5-14.5); RDW Standard Deviation 49.7 fL (36.4-46.3); White Blood Count 14.62 K/uL (4.8-10.8)
[2020-01-15 11:06] LABS: BUN Creatinine Ratio 26.8 (10-20); Creatinine Clr Calc Pharmacy 38.6 ml/min; Est GFR (African American) 45.1; Est GFR (Non-African American) 38.9; Potassium 3.8 mmol/L (3.5-5.1)
--- NOTE | 2020-01-15 13:06 | Cardiology Progress Note ---
Date of Service January 15, 2020 Assessment & Plan (1) Atrial fibrillation with rapid ventricular response: Mr. Mccurdy spontaneously converted to normal sinus rhythm on his own. Given his inability to anticoagulate I believe the most prudent course of action at this point would be for rhythm control strategy and attempt to avoid the need for anticoagulation. Slightly bradycardic this a.m. so we will change amiodarone to 200 mg twice daily. Okay to DC telemetry or to home from a cardiac standpoint. (2) Acute renal failure: (3) Cerebrovascular disease: History of hemorrhagic CVA and resultant cognitive impairment. (4) Ambulatory dysfunction: Progressive. Recurrent falls including recent episode with an orbital fracture Likely not a long-term anticoagulation candidate (5) Abnormal brain MRI: Serial imaging has revealed dural enhancement, currently being followed by neurosurgery and rheumatology Subjective Patient seen and examined, no acute distress. No events reported overnight. Telemetry reviewed: Sinus rhythm/bradycardia without recurrence of atrial fibrillation. Review of Systems Review of Systems: Unobtainable due to cognitive status Physical Exam Physical Exam: General: Awake, alert No acute distress. HEENT: Normocephalic, atraumatic. Pupils equal, round and reactive to light and accommodation. Extraocular muscles are intact. Anicteric sclera. Moist mucous membranes. Neck: No JVD. No bruit. Cardiovascular: Regular. Positive S-4. Normal S-1 and S-2. No S-3. No murmurs or rubs. Pulmonary: Clear to auscultation B/L. No rales, rhonchi or wheezing Abdomen: Bowel sounds x 4, soft. No rebound, guarding or tenderness. No organomegaly. Extremities: No clubbing, cyanosis or edema. +2 pedal pulses bilaterally. Skin: Warm and dry. Results & Data Vital Signs (Past 12 Hours) Vital Signs Temp Pulse Pulse Resp BP BP Pulse Ox 01/15/20 11:33 36.5 C 59 L 18 142/85 H 93 01/15/20 08:00 80 01/15/20 07:48 36.6 C 49 L 18 118/79 94 01/15/20 02:27 36.4 C L 74 19 126/67 97 (1) Acute renal failure Acute renal failure type: unspecified Qualified Code(s): N17.9 - Acute kidney failure, unspecified
--- NOTE | 2020-01-15 14:29 | Electrocardiogram Report ---
Test Reason : Blood Pressure : / mmHG Vent. Rate : 103 BPM Atrial Rate : 103 BPM P-R Int : 152 ms QRS Dur : 072 ms QT Int : 374 ms P-R-T Axes : 004 -29 -08 degrees QTc Int : 489 ms Poor data quality, interpretation may be adversely affected Sinus tachycardia Left axis deviation Abnormal ECG When compared with ECG of 18-DEC-2019 23:27, Premature ventricular complexes are no longer Present Confirmed by Randy Santos ([id number]) on 01/15/2020 2:29:42 PM Referred By: REFERRED SELF Confirmed By:Randy Santos
--- NOTE | 2020-01-15 14:34 | Electrocardiogram Report ---
Test Reason : Blood Pressure : / mmHG Vent. Rate : 145 BPM Atrial Rate : 150 BPM P-R Int : 000 ms QRS Dur : 068 ms QT Int : 272 ms P-R-T Axes : 000 -35 214 degrees QTc Int : 422 ms Poor data quality, interpretation may be adversely affected Atrial fibrillation with rvr Left axis deviation Abnormal ECG When compared with ECG of 13-JAN-2020 22:24, (unconfirmed) Atrial fibrillation is now Present Confirmed by Randy Santos ([id number]) on 01/15/2020 2:34:13 PM Referred By: REFERRED SELF Confirmed By:Randy Santos
--- NOTE | 2020-01-15 14:35 | Electrocardiogram Report ---
Test Reason : Blood Pressure : / mmHG Vent. Rate : 150 BPM Atrial Rate : 141 BPM P-R Int : 000 ms QRS Dur : 080 ms QT Int : 280 ms P-R-T Axes : 000 -30 088 degrees QTc Int : 442 ms Poor data quality, interpretation may be adversely affected Atrial fibrillation with rapid ventricular response Left axis deviation ST depression, consider subendocardial injury Nonspecific T wave abnormality Abnormal ECG When compared with ECG of 13-JAN-2020 22:27, (unconfirmed) No significant change Confirmed by Randy Santos ([id number]) on 01/15/2020 2:34:37 PM Referred By: REFERRED SELF Confirmed By:Randy Santos
--- NOTE | 2020-01-15 14:44 | Nephrology Progress Note ---
Date of Service January 15, 2020 Assessment & Plan (1) Acute renal failure: 74 year old male admitted with abnormal labs, leukocytosis, ACRLA prerenal type from C diff Diarrhea. Would continue current iv fluid as creat improving with good urine output. expect normal creat by tomorrow. No major lyte issues or fluid overload. Admission and Anticipated Discharge Date Admission Date: January 13, 2020 Subjective Patient seen and examined, no acute distress. No events reported overnight. Telemetry reviewed: Sinus rhythm/bradycardia without recurrence of atrial fibrillation. Review of Systems Review of Systems: Unable to obtain. Non verbal. Physical Exam Physical Exam: General: Awake, alert. No acute distress. Non verbal. HEENT: Normocephalic, atraumatic. Pupils equal, round and reactive to light and accommodation. Extraocular muscles are intact. Anicteric sclera. Moist mucous membranes. Neck: No JVD. No bruit. Cardiovascular: Regular. Positive S-4. Normal S-1 and S-2. No S-3. 3/6 holosystolic ejection murmur, left sternal border, mid-clavicular line with radiation to the axilla. No rubs. Pulmonary: Clear to auscultation bilaterally. No rales, rhonchi, or wheezing. Abdomen: soft. No tenderness. Extremities: No clubbing, cyanosis or edema. Results & Data ([facility]) Vital Signs (Past 12 Hours) Vital Signs Temp Pulse Pulse Resp BP Pulse Ox 01/15/20 11:33 36.5 C 59 L 18 142/85 H 93 01/15/20 08:00 80 01/15/20 07:48 36.6 C 49 L 18 118/79 94 (1) Acute renal failure Acute renal failure type: unspecified Qualified Code(s): N17.9 - Acute kidney failure, unspecified
[2020-01-15] MEDS: TRAZODONE HCL 50 MG TAB PO SCH (21:36)
[2020-01-16] MEDS: RASPBERRY SYRUP 5 ML UDP PO SCH ×4 (00:19→17:05)
[2020-01-16] MEDS: VANCOMYCIN HCL 125 MG/2.5ML SOLN PO SCH ×4 (00:19→17:06)
[2020-01-16] MEDS: SODIUM CHLORIDE 0.9% 1000ML 1,000 ML IV SCH ×4 (01:00→18:17)
[2020-01-16] MEDS: VENLAFAXINE HCL XR 37.5 MG CAPXR PO SCH (08:36)
[2020-01-16] MEDS: predniSONE 5 MG TAB PO SCH (08:37)
[2020-01-16] MEDS: METOPROLOL TARTRATE 25 MG TAB PO SCH ×2 (08:37→20:17)
[2020-01-16] MEDS: AMIODARONE 200 MG TAB PO SCH ×2 (08:37→17:05)
[2020-01-16 10:25] LABS: INR 1.1 (0.9-1.1); Prothrombin Time 11.4 Seconds (9.0-12.0)
[2020-01-16] MEDS ORDERED: HEPARIN SOD 5,000 UNIT/0.5 ML VIAL SQ SCH (14:00)
--- NOTE | 2020-01-16 14:49 | Cardiology Progress Note ---
Date of Service January 16, 2020 Assessment & Plan (1) Atrial fibrillation with rapid ventricular response: Mr. Mccurdy spontaneously converted to normal sinus rhythm on his own. Given his inability to anticoagulate I believe the most prudent course of action at this point would be for rhythm control strategy and attempt to avoid the need for anticoagulation. Rates have stabilized with amio 200mg bid, would cont as an outpatient. ok to d/c to home from cardiac standpoint my office will call to arrange cardiac f/u in 1-2 months (2) Acute renal failure: (3) Cerebrovascular disease: History of hemorrhagic CVA and resultant cognitive impairment. (4) Ambulatory dysfunction: Progressive. Recurrent falls including recent episode with an orbital fracture Likely not a long-term anticoagulation candidate (5) Abnormal brain MRI: Serial imaging has revealed dural enhancement, currently being followed by neurosurgery and rheumatology Review of Systems Review of Systems: Unobtainable due to cognitive status Physical Exam Physical Exam: General: Awake, alert No acute distress. HEENT: Normocephalic, atraumatic. Pupils equal, round and reactive to light and accommodation. Extraocular muscles are intact. Anicteric sclera. Moist mucous membranes. Neck: No JVD. No bruit. Cardiovascular: Regular. Positive S-4. Normal S-1 and S-2. No S-3. No murmurs or rubs. Pulmonary: Clear to auscultation B/L. No rales, rhonchi or wheezing Abdomen: Bowel sounds x 4, soft. No rebound, guarding or tenderness. No organomegaly. Extremities: No clubbing, cyanosis or edema. +2 pedal pulses bilaterally. Skin: Warm and dry. Results & Data Vital Signs (Past 12 Hours) Vital Signs Temp Pulse Resp BP Pulse Ox 01/16/20 06:44 36.5 C 68 18 135/82 98 (1) Acute renal failure Acute renal failure type: unspecified Qualified Code(s): N17.9 - Acute kidney failure, unspecified
[2020-01-16 16:01] LABS: Basophils # (auto) 0.01 K/uL (0-0.2); Basophils % (auto) 0.1 %; Eosinophils # (auto) 0.05 K/uL (0-0.5); Eosinophils % (auto) 0.4 %; Hematocrit (blood only) 38.7 % (42-52); Hemoglobin 13.3 g/dL (14.0-18.0); Immature Granulocytes % (auto) 0.8 %; Lymphocytes # (auto) 0.88 K/uL (1.2-3.4); Lymphocytes % (auto) 6.7 %; Mean Corpuscular Hemoglobin 30.2 pg (25-34); Mean Corpuscular Hgb Conc 34.4 g/dL (32-36); Mean Corpuscular Volume 87.8 fL (80-100); Monocytes # (auto) 0.77 K/uL (0.11-0.59); Monocytes % (auto) 5.9 %; Neutrophils # (auto) 11.27 K/uL (1.4-6.5); Neutrophils % (auto) 86.1 %; Platelet Count 215 K/uL (130-400); RDW Coefficient of Variation 15.1 % (11.5-14.5); RDW Standard Deviation 48.2 fL (36.4-46.3); Red Blood Count 4.41 M/uL (4.7-6.1); White Blood Count 13.08 K/uL (4.8-10.8)
[2020-01-16 16:27] LABS: BUN Creatinine Ratio 27.6 (10-20); Calcium 8.1 mg/dl (8.5-10.1); Creatinine Clr Calc Pharmacy 61.8 ml/min; Est GFR (African American) 79.5; Est GFR (Non-African American) 68.6; Potassium 3.8 mmol/L (3.5-5.1)
--- NOTE | 2020-01-16 17:48 | Hospitalist Progress Note ---
Date of Service delayed entry date of service 01/15/20 January 16, 2020 Assessment & Plan (1) Sepsis: 74 year old male with history of Dementia, Hemorrhagic Stroke with Left sided weakness, Falls/Ambulatory Dysfunction, RA with Rheumatoid meningitis, Prostate CA presenting with acute kidney injury in the setting diarrhea. (1) Sepsis: Sepsis POA secondary to C. difficile colitis per Dr. Arrington's notes: Met the criteria of sepsis on admission with leukocytosis, hypotension and tachycardia Has been on oral vancomycin -- clinically improving (2) C. difficile colitis: per Dr. Arrington's notes: Has been diagnosed with C. difficile colitis before admission Received antibiotic prior to the diagnosis of C. difficile colitis for pneumonia -- continue Vanco PO to complete 14 day course -- GI consulted (3) Acute renal failure: Presented with acute kidney injury likely secondary to dehydration Renal ultrasound did not show any obstruction Has been getting intravenous fluid Nephrology consulted -- creatinine furthe improving continue IV fluids (4) Atrial fibrillation: atrial fibrillation with RVR initially started on IV Cardizem and intravenous heparin Cardiology consulted Echo showed: No significant change compared with study of 10/07/2019, normal LV chamber size with moderate concentric LVH, EF of 50 to 55%, no segmental wall motion abnormalities, aortic valve sclerosis without stenosis and mild MR Troponin mildly elevated, doubt any ACS -- now transitioned to Amiodarone 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 medical 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 due to hemorrhagic CVA history, falls (5) Cerebrovascular disease: History of CVA with left hemiparesis -- neuro symptoms appear stable continue PT/OT (6) Rheumatoid arthritis: History of remote arthritis with MRI findings of rheumatoid meningitis Continue with prednisone (7) Dementia: -- stable (8) Sleep apnea in adult: Continue CPAP DVT prophylaxis SCDs case and plan of care discussed with patient's over the phone all questions answered she is understanding, agreeable, comfortable with the plan of care Admission and Anticipated Discharge Date Admission Date: January 13, 2020 Subjective ff up for C diff colitis, acute renal failure, atrial fibrillation etc. seen resting in bed, awake, alert, oriented x2, not in distress, appears comfortable states he feels fine overall denies abdominal pain, nausea, fever/chills, no diarrhea per SCOTT Gan no chest pain, palpitations, dizziness no other symptoms Review of Systems Review of Systems: All systems reviewed & are unremarkable except as noted in HPI & below Physical Exam Physical Exam: General- oriented x 2, not in distress, speaks in sentences with no effort or accessory muscle use Head- atraumatic Eyes- PERRL, EOMI, anicteric ENT- oropharynx clear Neck- supple, no JVD, no adenopathy, no thyromegaly; carotids +2/2, no bruits appreciated Lungs- clear to auscultation bilaterally, no rales/wheezes Heart- normal rate, irregularly irregular rhythm; no murmur, no gallop, no rub appreciated Abdomen- normal bowel sounds, nondistended, soft, nontender, no masses or hepatosplenomegaly Extremities- no pretibial edema, no calf tenderness; peripheral pulses intact Neuro- alert, oriented x 2; CN 2-12 grossly intact except for some dysarthria; motor 5/5 bilaterally except lue 4/5 with contracture of the hand;sensation 100% on all extremities; no other gross focal neurologic deficits Skin- warm & dry Results & Data Results & Data ([facility]) Vital Signs (Past 12 Hours) Vital Signs Temp Pulse Resp BP BP Pulse Ox 01/16/20 15:52 36.4 C L 70 18 144/86 H 97 01/16/20 06:44 36.5 C 68 18 135/82 98 Laboratory Results all noted and reviewed (1) Sepsis Sepsis acute organ dysfunction status: unspecified Sepsis type: sepsis due to unspecified organism Qualified Code(s): A41.9 - Sepsis, unspecified organism
--- NOTE | 2020-01-16 17:52 | Hospitalist Progress Note ---
Date of Service January 16, 2020 Assessment & Plan (1) Sepsis: 74 year old male with history of Dementia, Hemorrhagic Stroke with Left sided weakness, Falls/Ambulatory Dysfunction, RA with Rheumatoid meningitis, Prostate CA presenting with acute kidney injury in the setting diarrhea. (1) Sepsis: Sepsis POA secondary to C. difficile colitis per Dr. Arrington's notes: Met the criteria of sepsis on admission with leukocytosis, hypotension and tachycardia Has been on oral vancomycin -- clinically improving (2) C. difficile colitis: per Dr. Arrington's notes: Has been diagnosed with C. difficile colitis before admission Received antibiotic prior to the diagnosis of C. difficile colitis for pneumonia -- diarrhea resolved -- continue Vanco PO to complete 14 day course -- GI consulted (3) Acute renal failure: Presented with acute kidney injury likely secondary to dehydration Renal ultrasound did not show any obstruction Nephrology consulted -- creatinine further improving--> back to normal continue IV fluids--> decrease to 60cc/hr (4) Atrial fibrillation: atrial fibrillation with RVR initially started on IV Cardizem and intravenous heparin Cardiology consulted Echo showed: No significant change compared with study of 10/07/2019, normal LV chamber size with moderate concentric LVH, EF of 50 to 55%, no segmental wall motion abnormalities, aortic valve sclerosis without stenosis and mild MR Troponin mildly elevated, doubt any ACS -- now transitioned to Amiodarone 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 continuous 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 due to hemorrhagic CVA history, falls (5) Cerebrovascular disease: History of CVA with left hemiparesis -- neuro symptoms appear stable continue PT/OT (6) Rheumatoid arthritis: History of remote arthritis with MRI findings of rheumatoid meningitis Continue with prednisone (7) Dementia: -- stable (8) Sleep apnea in adult: Continue CPAP DVT prophylaxis SCDs--> avoid anticoagulation due to history of hemorrhagic stroke Disposition may need to transition to Rehab or SNF case and plan of care discussed with patient's over the phone, Niharika all questions answered she is understanding, agreeable, comfortable with the plan of care Admission and Anticipated Discharge Date Admission Date: January 13, 2020 Subjective ff up for sepsis, c diff, acute renal failure, a fib seen resting in bed, alert, awake, oriented x 2 appears brighter states he feels fine overall no diarrhea, no abdominal pain, fever/chills, appetite poor denies chest pain, dyspnea, palpitations no headache, dizziness, nausea no other symptoms Review of Systems Review of Systems: All systems reviewed & are unremarkable except as noted in HPI & below Physical Exam Physical Exam: General- oriented x 2, not in distress, speaks in phrases with no effort or accessory muscle use Eyes- anicteric Neck- no JVD Lungs- clear breath sounds bilaterally, no rales/wheezes Heart- normal rate, irregularly irregular rhythm; no murmurs Abdomen- normal bowel sounds, nondistended, soft, nontender Extremities- no pretibial edema, no calf tenderness Neuro- alert, oriented x 2; chronic dysarthira, LUE weakness, no new gross focal neurologic deficits Skin- warm & dry Results & Data Results & Data ([facility]) Vital Signs (Past 12 Hours) Vital Signs Temp Pulse Resp BP BP Pulse Ox 01/16/20 15:52 36.4 C L 70 18 144/86 H 97 01/16/20 06:44 36.5 C 68 18 135/82 98 Laboratory Results Laboratory Results - last 24 hr 01/16/20 01/16/20 01/16/20 09:48 15:47 15:47 WBC 13.08 H RBC 4.41 L Hgb 13.3 L Hct 38.7 L MCV 87.8 MCH 30.2 MCHC 34.4 RDW Std Deviation 48.2 H RDW Coeff of Monserrat 15.1 H Plt Count 215 MPV 10.0 Immature Gran % (Auto) 0.8 Neut % (Auto) 86.1 Lymph % (Auto) 6.7 [place] % (Auto) 5.9 Eos % (Auto) 0.4 Baso % (Auto) 0.1 Immature Gran # (Auto) 0.10 H Neut # (Auto) 11.27 H Lymph # (Auto) 0.88 L [place] # (Auto) 0.77 H Eos # (Auto) 0.05 Baso # (Auto) 0.01 PT 11.4 INR 1.1 Sodium 145 Potassium 3.8 Chloride 119 H Carbon Dioxide 22 Anion Gap 5.0 BUN 29 H Creatinine 1.05 Est Cr Clr Drug Dosing 61.8 Est GFR ( Amer) 79.5 Est GFR (Non-Af Amer) 68.6 BUN/Creatinine Ratio 27.6 H Glucose 103 H Calcium 8.1 L
[2020-01-16] MEDS: TRAZODONE HCL 50 MG TAB PO SCH (20:19)
[2020-01-17] MEDS: RASPBERRY SYRUP 5 ML UDP PO SCH ×3 (00:25→12:17)
[2020-01-17] MEDS: VANCOMYCIN HCL 125 MG/2.5ML SOLN PO SCH ×3 (00:25→12:17)
[2020-01-17 06:26] LABS: Basophils # (auto) 0.02 K/uL (0-0.2); Basophils % (auto) 0.2 %; Eosinophils # (auto) 0.23 K/uL (0-0.5); Eosinophils % (auto) 2.1 %; Hematocrit (blood only) 38.2 % (42-52); Hemoglobin 12.9 g/dL (14.0-18.0); Immature Granulocytes # (auto) 0.08 K/uL (0.00-0.02); Immature Granulocytes % (auto) 0.7 %; Lymphocytes # (auto) 1.22 K/uL (1.2-3.4); Lymphocytes % (auto) 11.2 %; Mean Corpuscular Hemoglobin 29.5 pg (25-34); Mean Corpuscular Hgb Conc 33.8 g/dL (32-36); Mean Corpuscular Volume 87.4 fL (80-100); Mean Platelet Volume 9.8 fL (7.4-10.4); Monocytes # (auto) 0.82 K/uL (0.11-0.59); Monocytes % (auto) 7.5 %; Neutrophils # (auto) 8.55 K/uL (1.4-6.5); Neutrophils % (auto) 78.3 %; Platelet Count 191 K/uL (130-400); RDW Coefficient of Variation 15.1 % (11.5-14.5); RDW Standard Deviation 47.4 fL (36.4-46.3); Red Blood Count 4.37 M/uL (4.7-6.1); White Blood Count 10.92 K/uL (4.8-10.8)
[2020-01-17 06:58] LABS: BUN Creatinine Ratio 28.3 (10-20); Calcium 8.2 mg/dl (8.5-10.1); Creatinine Clr Calc Pharmacy 74.6 ml/min; Est GFR (African American) 97.2; Est GFR (Non-African American) 83.8; Potassium 3.6 mmol/L (3.5-5.1)
[2020-01-17] MEDS: METOPROLOL TARTRATE 25 MG TAB PO SCH (08:02)
[2020-01-17] MEDS: VENLAFAXINE HCL XR 37.5 MG CAPXR PO SCH (08:07)
[2020-01-17] MEDS: predniSONE 5 MG TAB PO SCH (08:07)
[2020-01-17] MEDS: AMIODARONE 200 MG TAB PO SCH (08:08)
--- NOTE | 2020-01-17 10:08 | Hospitalist Progress Note ---
Date of Service January 17, 2020 Assessment & Plan (1) Sepsis: 74 year old male with history of Dementia, Hemorrhagic Stroke with Left sided weakness, Falls/Ambulatory Dysfunction, RA with Rheumatoid meningitis, Prostate CA presenting with acute kidney injury in the setting diarrhea. (1) Sepsis: Sepsis POA secondary to C. difficile colitis per Dr. Arrington's notes: Met the criteria of sepsis on admission with leukocytosis, hypotension and tachycardia Has been on oral vancomycin -- clinically improving (2) C. difficile colitis: per Dr. Arrington's notes: Has been diagnosed with C. difficile colitis before admission Received antibiotic prior to the diagnosis of C. difficile colitis for pneumonia -- diarrhea resolved -- continue Vanco PO x 10 days, to complete 14 day course -- GI consulted (3) Acute renal failure, likely Acute Tubular Necrosis secondary to Dehydration Presented with acute kidney injury likely secondary to dehydration Renal ultrasound did not show any obstruction Nephrology consulted -- given IV NSS crea improved from 5.3 to 0.87 -- encourage to increase oral fluid intake daily (4) Atrial fibrillation with RVR initially started on IV Cardizem and intravenous heparin Cardiology consulted Echo showed: No significant change compared with study of 10/07/2019, normal LV chamber size with moderate concentric LVH, EF of 50 to 55%, no segmental wall motion abnormalities, aortic valve sclerosis without stenosis and mild MR Troponin mildly elevated, doubt any ACS -- now transitioned to Amiodarone 200mg po BID, HR controlled 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 Ann- [employer] in 1-2 months Poor appetite - Consult waterworks chief engineer Supervised with meals, encourage oral intake (5) Cerebrovascular disease: History of CVA with left hemiparesis -- neuro symptoms appear stable continue PT/OT (6) Rheumatoid arthritis: History of remote arthritis with MRI findings of rheumatoid meningitis Continue with prednisone (7) Dementia: -- stable (8) Sleep apnea in adult: Continue CPAP DVT prophylaxis SCDs--> avoid anticoagulation due to history of hemorrhagic stroke Disposition return to [facility] today Follow-up with PCP 1 week after discharge from [facility] next Follow-up with [facility] director emergency department Dr. Ann in 2 months case and plan of care discussed with patient's over the phone, Niharika all questions answered she is understanding, agreeable, comfortable with the plan of care Admission and Anticipated Discharge Date Admission Date: January 13, 2020 Subjective Follow-up for acute renal failure, C. difficile colitis, atrial fibrillation Seen resting in bed, comfortable, watching TV States he feels fine overall Denies abdominal pain, nausea vomiting, fevers or chills Had only one loose BM this morning Denies shortness of breath, chest pain, palpitation Still has poor appetite-when inquired, patient reports he just does not feel hungry No other symptoms Review of Systems Review of Systems: All systems reviewed & are unremarkable except as noted in HPI & below Physical Exam Physical Exam: General- oriented x 3, not in distress, speaks in sentences with no effort or accessory muscle use Eyes- anicteric Neck- no JVD Lungs- clear breath sounds bilaterally,No crackles or wheezing Heart- normal rate, Irregularly irregular rhythm; no murmurs Abdomen- normal bowel sounds, nondistended, soft, nontender Extremities- no pretibial edema, no calf tenderness Neuro- alert, oriented x 3; no gross focal neurologic deficits Skin- warm & dry Results & Data Results & Data ([facility]) Vital Signs (Past 12 Hours) Vital Signs Temp Pulse Resp BP Pulse Ox 01/17/20 07:14 36.5 C 86 16 151/88 H 93 01/16/20 23:00 36.4 C L 75 22 149/88 H 92
[2020-01-17] MEDS: SODIUM CHLORIDE 0.9% 1000ML 1,000 ML IV SCH (11:00)
--- NOTE | 2020-01-17 12:50 | Discharge Summary ---
Date of Service January 17, 2020 Admission HPI Per Admitting Provider CHIEF COMPLAINT: Abnormal labs, acute kidney injury. HISTORY OF PRESENT ILLNESS: This is a 74-year-old male with past medical history significant for atrial premature beats, hypertension, history of dementia, anemia, rheumatoid arthritis, depression, history of prostate cancer, history of hemorrhagic stroke with left sided weakness, pulmonary nodules, who lives with his , used to ambulate with a walker, he was brought to the hospital on 12/19/2019 for frequent falls and at that time he also had left orbital floor fracture treated with antibiotics and he is also treated for the left lower lobe pneumonia with p.o. Levaquin and was discharged to [facility]. In [facility] was found to have C. diff and put on p.o. vancomycin, . 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 LP was performed with [facility]. He has supposed to followup with [facility] matology and Neurology. The patient about a month before used to walk with a walker, currently is wheelchair bound and also is on diapers as per the outpatient notes and also requiring lot of care at home. Also having difficultly swallowing. and he is currently is on the ground and moist diet. Drinks water with a straw but is not eating much as per the and not drinking much and he went to family doctor today and labs done showed CARLA and elevated white count, was referred here. His white count is 32.7 and his creatinine is 5.3. Baseline is Cr around 0.9. Otherwise the patient resting comfortably and hemodynamically stable. Denies any pain. He denies any nausea, vomiting. No abdominal pain. Denies any headache, no cough, no shortness of breath, no chest pain. No rash. He has dementia, was alert and awake and oriented to name and place and could tell the year, but denies any other complaints. He is not sure exactly why he is in the hospital, but he denies any diarrhea. When checked with the she states since yesterday he did not move his bowels. He is having difficulty swallowing food, but he is able to take pills when the pills are crushed. Admission Exam Per Admitting Provider GENERAL: The patient is alert and oriented to name and place, could tell the year, not the date, not in acute distress. VITAL SIGNS: Temperature 36.6, pulse 98, respiratory rate 18, blood pressure 103/64, oxygen 98% room air. HEENT: No pallor, no icterus. Pupils equal, round, reactive to light. NECK: No JVD, no neck masses. Supple. CARDIOVASCULAR: S1, S2 heard, regular rate and rhythm, no murmur, no gallop. RESPIRATORY SYSTEM: Normal AP diameter. No accessory muscle use. No wheezing, no crackles. ABDOMEN: Soft, bowel sounds present, nontender. No distention. CENTRAL NERVOUS SYSTEM: Alert and awake and oriented to name and place, can tell current year, and could tell his date of , obeys simple commands. Moves extremities. EXTREMITIES: No edema, no erythema. Principal Diagnosis Acute renal failure secondary to dehydration, secondary to C. difficile colitis; atrial fibrillation With rapid ventricular response Discharge Exam General- oriented x 3, not in distress, speaks in sentences with no effort or accessory muscle use Eyes- anicteric Neck- no JVD Lungs- clear breath sounds bilaterally,No crackles or wheezing Heart- normal rate, Irregularly irregular rhythm; no murmurs Abdomen- normal bowel sounds, nondistended, soft, nontender Extremities- no pretibial edema, no calf tenderness Neuro- alert, oriented x 3; no gross focal neurologic deficits Skin- warm & dry Discharge Data Allergies Allergy/AdvReac Type Severity Reaction Status Date / Time No Known Allergies Allergy NONE Verified 01/13/20 20:33 Consultations 01/13/20 21:12 ED Decision to Admit Stat 01/13/20 23:27 Consult Case Management - Discharge Planning Routine Consult Gastroenterology Routine 01/14/20 08:00 Consult Cardiology Routine Consult Nephrology Routine Ordered Studies 01/13/20 20:33 CT abd pelvis wo con Stat Lung bases: The heart is normal in size and without pericardial effusion. There are coronary artery calcifications. Evaluation of the lung bases is degraded by motion artifact. The lung bases are clear noting bibasilar scarring/atelectasis. There is a small hiatal hernia. Liver: The unenhanced liver is normal in size, contour, and attenuation. There is no intrahepatic biliary ductal dilatation. Gallbladder: Unremarkable. Spleen: Normal in size and attenuation. Pancreas: The unenhanced pancreas is mildly atrophic. A calcified nodule is again seen either arising from or located adjacent to the pancreatic tail on image #[id number]. This is unchanged from 2017. Adrenal glands: Unremarkable. Kidneys: The unenhanced kidneys demonstrate mild cortical atrophy and are without hydronephrosis. There are least 2 nonobstructing left renal calculi which measure up to 6 mm. There is no evidence of contour deforming renal mass lesion. Abdominal vasculature: The abdominal aorta is normal in course and caliber. Bowel: There is no bowel obstruction. There is mild sigmoid diverticulosis without CT evidence of acute diverticulitis. Question faint pericolonic infiltra tion. The appendix is not identified. Peritoneum: There is no intraperitoneal free air or abdominal ascites. There is a small fat-containing umbilical hernia. Lymphadenopathy: None. Pelvic viscera: Evaluation of the pelvis is significantly degraded by streak artifact from bilateral hip arthroplasties. The prostate gland is surgically absent. The bladder is normal as imaged. Bilateral fat-containing inguinal hernias are noted. Skeletal structures: The skeletal structures are osteopenic. There is moderate to advanced lumbosacral spondylosis and mild scoliosis. No lytic or blastic lesions are seen. Bilateral hip arthroplasties are in place. There are healed bilateral rib fractures. IMPRESSION: 1. Suboptimal examination without oral and IV contrast. The examination is also degraded by streak and motion artifact. 2. Questioned faint pericolonic infiltration. Correlate clinically for evidence of a mild nonspecific colitis. 3. Left-sided nephrolithiasis. 4. Additional findings as above. 01/14/20 10:00 US renal/blad retro comp Urgent Right kidney: Normal echogenicity of renal parenchyma though cortical thinning is suggested. Right kidney measures 11.4 cm. No hydronephrosis. Trace perinephric fluid. Left kidney: Normal echogenicity of renal parenchyma though cortical thinning is suggested, which is more severe than on the right. Left kidney measures 11.9 cm. No hydronephrosis. 8 mm hyperechogenic focus at the lower pole with twinkling artifact and posterior shadowing consistent with calculus. Bladder: Decompressed with a Collins catheter. Bilateral ureteral jets not vis ualized. Other: None. IMPRESSION: 1. Cortical thinning may suggest chronic medical renal disease. This is greater on the left. 2. Left nephrolithiasis. 3. No hydronephrosis. Hospital Course (1) Sepsis: 74 year old male with history of Dementia, Hemorrhagic Stroke with Left sided weakness, Falls/Ambulatory Dysfunction, RA with Rheumatoid meningitis, Prostate CA presenting with acute kidney injury in the setting diarrhea. (1) Sepsis: Sepsis POA secondary to C. difficile colitis per Dr. Arrington's notes: Met the criteria of sepsis on admission with leukocytosis, hypotension and tachycardia -- clinically improved (2) C. difficile colitis: per Dr. Arrington's notes: Has been diagnosed with C. difficile colitis before admission Received antibiotic prior to the diagnosis of C. difficile colitis for pneumonia -- diarrhea resolved -- continue Vanco PO x to complete 14 day course -- GI consulted (3) Acute renal failure, likely Acute Tubular Necrosis secondary to Dehydration Presented with acute kidney injury likely secondary to dehydration Renal ultrasound did not show any obstruction Nephrology consulted -- given IV NSS crea improved from 5.3 to 0.87 -- encourage to increase oral fluid intake daily (4) Atrial fibrillation with RVR initially started on IV Cardizem and intravenous heparin Cardiology consulted Echo showed: No significant change compared with study of 10/07/2019, normal LV chamber size with moderate concentric LVH, EF of 50 to 55%, no segmental wall motion abnormalities, aortic valve sclerosis without stenosis and mild MR Troponin mildly elevated, doubt any ACS -- transitioned to Amiodarone 200mg po BID, and usual Metoprolol continued; HR controlled 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 long-term anticoagulation due to hemorrhagic CVA history, falls ff up with Dr. Ann- [facility] Activities Counselor in 1-2 months Poor appetite - Consult radio interference trouble shooter Supervised with meals, encourage oral intake (5) Cerebrovascular disease: History of CVA with left hemiparesis -- neuro symptoms appear stable continue PT/OT (6) Rheumatoid arthritis: History of remote arthritis with MRI findings of rheumatoid meningitis Continue with prednisone, Methotrexate (7) Dementia: -- stable (8) Sleep apnea in adult: Continue CPAP DVT prophylaxis SCDs--> avoid anticoagulation due to history of hemorrhagic stroke Disposition return to [facility] today Follow-up with PCP 1 week after discharge from Follow-up with danii teletray operator Dr. Ann in 2 months case and plan of care discussed with patient's over the phone, Niharika all questions answered she is understanding, agreeable, comfortable with the plan of care Total Time Total Time Spent Total Time Spent (In Minutes): 65 minutes Discharge Plan Discharge Items Reason For Visit: ABNORMAL LABS Discharge Diagnosis: Acute renal failure, secondary to dehydration, in the setting of C. difficile colitis Activity: Resume your previous activity Non-emergency contact: Primary Care Provider Call non-emergency contact if: you have any medication questions, your symptoms worsen and you have a fever Follow-up/Referrals: Quinn Ann DO [Physician] - (in 1 to 2 months) Gabriela Pepe DO [Primary Care Provider] - None (1 week after discharge from ) Diet: Heart Healthy Addtl Attending Provider Instructions: Supervise with meals, encouraged to increase food and fluid intake.Repeat basic metabolic profile In 3 days, then monitor regularly. Please refer to accompanying hospital discharge summary for further details Pending Studies at Discharge: Yes Studies:: Repeat basic metabolic profile in 3 days Stand-Alone Forms: My [facility] Skilled Items Patient informed of condition?: Yes DNR: No Discharge Level of Care: Acute rehab Communicable Disease: Yes Discharge Prognosis: Stable Lines: None Urinary Catheter: No Medications and DC Order Prescriptions: New amiodarone 200 mg Tablet 200 mg PO BIDM Qty: 60 RF: 2 Continued methotrexate sodium 2.5 mg Tablet 5 mg PO .BIDQMON RF: 0 trazodone 150 mg Tablet 150 mg PO HS RF: 0 folic acid 1 mg Tablet 2 mg PO HS RF: 0 atorvastatin 10 mg Tablet 10 mg PO HS RF: 0 metoprolol tartrate 25 mg tablet 12.5 mg PO BID RF: 0 venlafaxine 37.5 mg capsule,extended release 24hr 37.5 mg PO QAM RF: 0 cetirizine [Zyrtec] 10 mg Tablet 10 mg PO QAM RF: 0 prednisone 5 mg Tablet 5 mg PO DAILY RF: 0 vancomycin [Vancocin] 125 mg capsule 125 mg PO QID Qty: 40 RF: 0 Discontinued potassium chloride [Klor-Con M20] 20 mEq tablet,ER particles/crystals 20 meq PO BID RF: 0 hydrochlorothiazide 12.5 mg tablet 12.5 mg PO QAM RF: 0 Admission Data Admit Date/Time: 01/13/20 22:19 Attending Provider: Carlos Chung Admit Provider: Chris Allison Primary Care Provider: Gabriela Pepe Other Providers: Ailyn King ; [facility] ; Daniela Arrington ; Chris Allison ; Alyssa Dunlap ; Tasia Day ; Terese Bardales ; Merary Chavez ; Pankaj Taylor ; Nickolas Chiang ; Danny Cox ; Lizz Gilmore ; Jerardo Wilson ; Jayjay Mckenzie ; Beatrice Krishnamurthy ; Pina Hernandes ; Kamla Guerrero ; Jesenia Martinez ; Mervin Mendoza ; Quinn Ann ; John Bhatia ; Elías Juarez ; Germán Haddad ; Karthik Diamond ; Cirilo Graves ; Mariam Lucas ; Tamera Del Angel ; Get Harris ; Purvi Mena ; Tung Black ; Chayo Emerson ; Karen Chaidez ; Opal Tam ; [facility]
== END 2020-01-17 15:35 | DRG 871 ==
LOC: ED 18:51 → 2S 22:19 → SUATTDRO 22:19 → 2S 22:53 → 2W 01-15 17:48